=== PATIENT | female | born 1955 | race Caucasian/White ===

== ENCOUNTER 2016-12-04 13:39 | Inpatient (IN) | payer OTHER ==
[2016-12-04 15:46] LABS: Glucose,Whole Blood 86 mg/dL (75-99)
[2016-12-04 15:54] LABS: Anisocytosis Slight; Aty Lym Flag Marked; CH 32.5; CHCM 33.3; HCT 22.2 % (34.0-46.0); HDW 3.23; HGB 7.3 gm/dL (11.4-16.0); MCH 31.9 pg (25.0-35.0); MCHC 32.6 g/dL (31.0-37.0); MCV 97.7 fL (80.0-100.0); Macrocytosis Slight; Mean Platelet Volume 8.7; RBC 2.28 m/uL (3.80-5.40); WBC 0.2 k/uL (3.8-10.6); WBC (Perox) 0.16
[2016-12-04 16:03] LABS: Ammonia <9 umol/L (<30)
[2016-12-04 16:05] LABS: Add Differential Manual Differential
--- NOTE | 2016-12-04 16:06 | XR ---
EXAMINATION TYPE: XR chest 1V portable DATE OF EXAM: 12/04/2016 4:01 PM Comparison: None Clinical History: 61-year-old female with weakness, shortness of breath, altered mental status Findings: Density at the right base. Uncertain if this represents elevation of the right hemidiaphragm or densi ty relating to underlying breast prosthesis. This should be correlated clinically. Heart is normal si ze. Atherosclerotic arch calcifications. Lung volumes appear somewhat low with crowded vascular harper ngs. Left anterior chest wall injection port with catheter tip at the upper right atrium. No signific ant pleural effusion seen. Visualized upper and mid lungs are clear. Impression: Right basilar opacity. Unable to determine if this represents elevation of the right hemidiaphragm, o verlying density such as from a right breast prosthesis, or underlying effusion/infiltrate. Recommend dedicated 2 views of the chest when patient able to further evaluate.
[2016-12-04 16:08] LABS: ALT 20 U/L (9-52); AST 13 U/L (14-36); Alkaline Phosphatase 74 U/L (38-126); Anion Gap 5 mmol/L; Blood Urea Nitrogen 9 mg/dL (7-17); Calcium 7.4 mg/dL (8.4-10.2); Carbon Dioxide 31 mmol/L (22-30); Chloride 95 mmol/L (98-107); Glucose 101 mg/dL (74-99); Non-African American GFR(MDRD) >60 (>60 ml/min/1.73 sqM); Sodium 131 mmol/L (137-145); Total Bilirubin 0.5 mg/dL (0.2-1.3); Total Protein 4.4 g/dL (6.3-8.2)
--- NOTE | 2016-12-04 16:08 | CT ---
EXAMINATION TYPE: CT brain wo con DATE OF EXAM: 12/04/2016 4:01 PM COMPARISON: NONE HISTORY: 61-year-old female altered mental status, WEAKNESS AND CONFUSION. History of cancer. TECHNIQUE: Examination was done in axial plane without intravenous contrast. Coronal and sagittal r econstructions performed. CT DLP: 1058 mGycm Automated exposure control for dose reduction was used. FINDINGS: There is no evidence of acute intracranial hemorrhage, acute ischemic changes, mass, mass-effect, or extra-axial fluid collection. There is no effacement of cerebral sulci or basal subarachnoid cister ns. There is no hydrocephalus. There is no midline shift. Martinez-white matter distinction is preserv ed. Mild periventricular white matter hypodensities suggest mild burden of chronic small vessel ischemic disease. Benign basal ganglia calcifications, particularly on the left. Incidental partially empty se lla. Paranasal sinuses are well pneumatized. Orbits and globes are intact. Partial opacification of left m astoid air cells. IMPRESSION: 1. No acute intracranial abnormality seen. 2. Some retained secretions within the left mastoid air cells. Correlate for any mastoid pain to excl ude mastoiditis.
[2016-12-04 16:09] LABS: Potassium 2.5 mmol/L (3.5-5.1)
[2016-12-04] MEDS ORDERED: POTASSIUM BICARB-CITRIC ACID 25 MEQ TABLET.EFF PO STA (16:12)
[2016-12-04] MEDS ORDERED: CEFEPIME 2 GM in SODIUM CHLORIDE 0.9% 50 ML IVPB STA (16:16)
[2016-12-04 16:47] LABS: Anisocytosis Slight; Aty Lym Flag Marked; CH 32.2; CHCM 33.2; HCT 23.2 % (34.0-46.0); HDW 3.31; HGB 7.6 gm/dL (11.4-16.0); MCH 32.1 pg (25.0-35.0); MCHC 32.9 g/dL (31.0-37.0); MCV 97.3 fL (80.0-100.0); Macrocytosis Slight; Mean Platelet Volume 6.9; RBC 2.38 m/uL (3.80-5.40); RDW 17.9 % (11.5-15.5); WBC 0.2 k/uL (3.8-10.6)
[2016-12-04 16:48] LABS: Add Differential Manual Differential
[2016-12-04] MEDS ORDERED: IV VANCOMYCIN PER PHARMACY 1 EACH MISC MISCELLANE PRN (18:20)
[2016-12-04] MEDS ORDERED: SODIUM CHLORIDE 0.9% 1,000 ML IV ONE (18:20)
[2016-12-04] MEDS ORDERED: NALOXONE 0.4 MG/ML 1 ML VIAL IV PRN (19:00)
[2016-12-04] MEDS ORDERED: ONDANSETRON 4 MG/2 ML VIAL IVP PRN (19:00)
[2016-12-04] MEDS ORDERED: ACETAMINOPHEN TAB 325 MG TAB PO PRN (19:00)
[2016-12-04] MEDS ORDERED: VANCOMYCIN 1,000 MG in SODIUM CHLORIDE 0.9% 250 ML IVPB ONE (19:00)
[2016-12-04] MEDS ORDERED: DOCUSATE 100 MG CAP PO PRN (19:03)
--- NOTE | 2016-12-04 19:04 | ED ---
Altered Mental Status HPI - General Chief Complaint: Altered Mental Status Stated Complaint: weakness, Time Seen by Provider: 12/04/16 14:48 Source: family Mode of arrival: wheelchair Limitations: altered mental status - History of Present Illness Initial Comments: This patient is a 61-year-old woman coming to the emergency department to be evaluated for mental status changes. The patient is not able to give much history she does appear to have some aphasia today. History is from the patient 's and son, who state that since she got up this morning she has not been her usual self. She has been much less active, her intake is decreased, and she has not been able to communicate with family. They report that she has history of what sounds like ovarian cancer and possibly some abdominal metastases. She has been taking chemotherapy through the [facility] in [place]. It sounds like her last chemotherapy treatment was 2 weeks ago. Patient has not been having fevers or any obvious symptoms of infection. When I asked the patient she denies pain, however she is not able to provide much additional history. MD Complaint: altered mental status, weakness -: hour(s) Severity: moderate Context: cancer Associated Symptoms: denies other symptoms - Related Data Home Medications Medication Instructions Recorded Confirmed Apixaban [Eliquis] 5 mg PO BID 12/04/16 12/04/16 Docusate [Colace] 100 mg PO DAILY PRN 12/04/16 12/04/16 HYDROmorphone [Dilaudid] 2 mg PO Q4H PRN 12/04/16 12/04/16 Allergies Allergy/AdvReac Type Severity Reaction Status Date / Time No Known Allergies Allergy Verified 12/04/16 15:51 Review of Systems ROS Statement: Those systems with pertinent positive or pertinent negative responses have been documented in the HPI. ROS Other: All systems not noted in ROS Statement are negative. Constitutional: Reports: weakness (Generalized). Denies: fever Eyes: Denies: vision change Respiratory: Denies: cough, dyspnea Cardiovascular: Reports: edema. Denies: chest pain, syncope Gastrointestinal: Denies: abdominal pain, vomiting Musculoskeletal: Denies: back pain Neurological: Reports: weakness (Generalized), confusion. Denies: headache Past Medical History Past Medical History: Cancer Additional Past Medical History / Comment(s): pt has cancer, unsure of type History of Any Multi-Drug Resistant Organisms: None Reported Past Surgical History: Bowel Resection, Hysterectomy Additional Past Surgical History / Comment(s): colostomy Past Psychological History: No Psychological Hx Reported Smoking Status: Former smoker Past Alcohol Use History: None Reported Past Drug Use History: None Reported General Exam Limitations: altered mental status General appearance: alert, cachectic Head exam: Present: atraumatic, normocephalic Eye exam: Present: normal appearance, PERRL, EOMI. Absent: scleral icterus, conjunctival injection ENT exam: Present: mucous membranes dry Neck exam: Present: full ROM. Absent: meningismus Respiratory exam: Present: normal lung sounds bilaterally. Absent: respiratory distress, wheezes, rales, rhonchi, stridor Cardiovascular Exam: Present: regular rate, normal rhythm, normal heart sounds. Absent: systolic murmur, diastolic murmur, rubs, gallop GI/Abdominal exam: Present: soft. Absent: distended, tenderness, guarding, rebound, mass Extremities exam: Present: normal inspection, normal capillary refill, pedal edema (There is bilateral edema to below the knee). Absent: calf tenderness Back exam: Absent: CVA tenderness (R), CVA tenderness (L) Neurological exam: Present: alert, CN II-XII intact, other (Patient is not able to fully cooperative with the neurologic exam. She is able to express some single words though she is having problem with expressive aphasia. She is able to follow some simple single step commands. I do not find any focal weakness.) . Absent: oriented X3, motor sensory deficit Skin exam: Present: warm, dry, intact, normal color. Absent: rash Course Vital Signs 12/04/16 12/04/16 12/04/16 13:48 18:19 19:24 Temperature 96.8 F L Pulse Rate 68 98 96 Respiratory 20 20 16 Rate Blood Pressure 107/72 79/51 85/52 O2 Sat by Pulse 95 92 L 98 Oximetry 12/04/16 12/04/16 19:28 20:30 Temperature Pulse Rate 91 90 Respiratory 16 16 Rate Blood Pressure 84/55 90/61 O2 Sat by Pulse 100 99 Oximetry Medical Decision Making - Medical Decision Making This patient is a 61-year-old woman presenting with altered mental status and found to have pancytopenia as well as other electrolyte abnormalities including hypokalemia. She appears clinically dehydrated as well. We did start gentle IV fluids and electrolyte replacement. I discussed the findings with the patient's family and per their request, Patient will be admitted here. She does not have a local physician and was admitted to the on-call physician. Case discussed with the tempering oven operator on-call and will cover the patient for the neutropenia with antibiotics. The patient's aphasia was improving to the course in emergency Department and she was able to start communicating with her family. The patient did develop some mild hypotension and sustainability coordinator was added on the case and discussed the case prior to going to the floor there recommendations incorporated. Discussed the patient's critical condition with the family and they're aware. - Lab Data Result diagrams: 12/04/16 16:30 12/04/16 20:28 Lab Results 12/04/16 12/04/16 12/04/16 Range/Units 15:20 15:20 15:20 WBC 0.2 L* (3.8-10.6) k/uL RBC 2.28 L (3.80-5.40) m/uL Hgb 7.3 L (11.4-16.0) gm/dL Hct 22.2 L (34.0-46.0) % MCV 97.7 (80.0-100.0) fL MCH 31.9 (25.0-35.0) pg MCHC 32.6 (31.0-37.0) g/dL RDW 18.0 H (11.5-15.5) % Plt Count 12 L* (150-450) k/uL Neutrophils % Not Reportable Lymphocytes % Not Reportable Monocytes % Not Reportable Eosinophils % Not Reportable Basophils % Not Reportable Neutrophils # Not Reportable Lymphocytes # Not Reportable Monocytes # Not Reportable Eosinophils # Not Reportable Basophils # Not Reportable Differential Comment Anisocytosis Slight Macrocytosis Slight Sodium 131 L (137-145) mmol/L Potassium 2.5 L* (3.5-5.1) mmol/L Chloride 95 L (98-107) mmol/L Carbon Dioxide 31 H (22-30) mmol/L Anion Gap 5 mmol/L BUN 9 (7-17) mg/dL Creatinine 0.40 L (0.52-1.04) mg/dL Est GFR (MDRD) Af Amer >60 (>60 ml/min/1.73 sqM) Est GFR (MDRD) Non-Af >60 (>60 ml/min/1.73 sqM) Glucose 101 H (74-99) mg/dL POC Glucose (mg/dL) (75-99) mg/dL POC Glu [employer] Repairer ID Plasma Lactic Acid Cliff (0.7-2.0) mmol/L Calcium 7.4 L (8.4-10.2) mg/dL Total Bilirubin 0.5 (0.2-1.3) mg/dL AST 13 L (14-36) U/L ALT 20 (9-52) U/L Alkaline Phosphatase 74 (38-126) U/L Ammonia (<30) umol/L Troponin I 0.106 H* (0.000-0.034) ng/mL Total Protein 4.4 L (6.3-8.2) g/dL Albumin 2.0 L (3.5-5.0) g/dL 12/04/16 12/04/16 12/04/16 Range/Units 15:20 15:43 16:30 WBC 0.2 L* (3.8-10.6) k/uL RBC 2.38 L (3.80-5.40) m/uL Hgb 7.6 L (11.4-16.0) gm/dL Hct 23.2 L (34.0-46.0) % MCV 97.3 (80.0-100.0) fL MCH 32.1 (25.0-35.0) pg MCHC 32.9 (31.0-37.0) g/dL RDW 17.9 H (11.5-15.5) % Plt Count 11 L* (150-450) k/uL Neutrophils % Lymphocytes % Monocytes % Eosinophils % Basophils % Neutrophils # Lymphocytes # Monocytes # Eosinophils # Basophils # Differential Comment Anisocytosis Slight Macrocytosis Slight Sodium (137-145) mmol/L Potassium (3.5-5.1) mmol/L Chloride (98-107) mmol/L Carbon Dioxide (22-30) mmol/L Anion Gap mmol/L BUN (7-17) mg/dL Creatinine (0.52-1.04) mg/dL Est GFR (MDRD) Af Amer (>60 ml/min/1.73 sqM) Est GFR (MDRD) Non-Af (>60 ml/min/1.73 sqM) Glucose (74-99) mg/dL POC Glucose (mg/dL) 86 (75-99) mg/dL POC Glu [employer] Repairer Tracy George Plasma Lactic Acid Cliff 2.0 (0.7-2.0) mmol/L Calcium (8.4-10.2) mg/dL Total Bilirubin (0.2-1.3) mg/dL AST (14-36) U/L ALT (9-52) U/L Alkaline Phosphatase (38-126) U/L Ammonia <9 (<30) umol/L Troponin I (0.000-0.034) ng/mL Total Protein (6.3-8.2) g/dL Albumin (3.5-5.0) g/dL Critical Care Time Critical Care Time: Yes (35 minutes) Disposition Clinical Impression: Altered mental status, Pancytopenia due to chemotherapy, Hypokalemia Disposition: ADMITTED IP TO THIS [facility] Condition: Serious
[2016-12-04] MEDS: SODIUM CHLORIDE 0.9% 1,000 ML IV SCH (19:25)
[2016-12-04] MEDS: NOREPINEPHRIN 4 MG-0.9% NS PMX 4 MG/250 ML ML IV SCH (20:29)
[2016-12-04] MEDS ORDERED: APIXABAN 5 MG TAB PO SCH (21:00)
[2016-12-04 21:11] LABS: Anion Gap 2 mmol/L; Blood Urea Nitrogen 8 mg/dL (7-17); Calcium 7.4 mg/dL (8.4-10.2); Carbon Dioxide 32 mmol/L (22-30); Chloride 97 mmol/L (98-107); Glucose 74 mg/dL (74-99); Non-African American GFR(MDRD) >60 (>60 ml/min/1.73 sqM); Sodium 131 mmol/L (137-145)
[2016-12-04 21:32] LABS: Glucose,Whole Blood 77 mg/dL (75-99)
[2016-12-04] MEDS: HYDROmorphone 2 MG TAB PO PRN (22:18)
[2016-12-04] MEDS: APIXABAN 5 MG TAB PO SCH (22:40)
[2016-12-04] MEDS: FAMOTIDINE 20 MG TAB PO SCH (22:41)
[2016-12-04] MEDS: POTASSIUM CHLORIDE ER 20 MEQ TAB.ER PO SCH (22:41)
[2016-12-04 23:24] LABS: Amorphous Sediment,Urine Rare /hpf; Appearance,Urine Clear (Clear); Bacteria,Urine Rare /hpf; Bilirubin,Urine Negative (Negative); Glucose,Urine (UA) Negative (Negative); Ketones,Urine Negative (Negative); Leukocyte Esterase,Urine Negative (Negative); Mucus,Urine Moderate /hpf; Nitrite,Urine Negative (Negative); PH, Urine 5.5 (5.0-8.0); Particle Count 9992; Protein,Urine 1+ (Negative); RBC,Urine 1 /hpf (0-5); Squamous Epithelial Cell,Urine 1 /hpf (0-4); UA Billing (MACRO vs. MICRO) MICRO; Urobilinogen,Urine <2.0 mg/dL (<2.0); WBC,Urine 4 /hpf (0-5)
[2016-12-05] MEDS: HYDROCORTISONE SUCCINATE 100 MG/2 ML VIAL IV SCH ×3 (00:14→16:12)
[2016-12-05] MEDS: POTASSIUM CHLORIDE ER 20 MEQ TAB.ER PO SCH ×5 (00:15→22:03)
[2016-12-05] MEDS: VANCOMYCIN 750 MG in SODIUM CHLORIDE 0.9% 250 ML IVPB SCH ×3 (04:03→22:03)
[2016-12-05 05:08] LABS: Anisocytosis Slight; CH 32.2; CHCM 32.4; HCT 24.3 % (34.0-46.0); HDW 3.19; HGB 8.2 gm/dL (11.4-16.0); MCH 33.8 pg (25.0-35.0); MCHC 33.9 g/dL (31.0-37.0); MCV 99.6 fL (80.0-100.0); Macrocytosis Slight; Mean Platelet Volume 9.6; RBC 2.43 m/uL (3.80-5.40); RDW 17.7 % (11.5-15.5); WBC (Perox) 0.16
[2016-12-05 05:45] LABS: Anion Gap 2 mmol/L; Blood Urea Nitrogen 8 mg/dL (7-17); Calcium 7.4 mg/dL (8.4-10.2); Carbon Dioxide 31 mmol/L (22-30); Chloride 98 mmol/L (98-107); Glucose 142 mg/dL (74-99); Magnesium 1.4 mg/dL (1.6-2.3); Non-African American GFR(MDRD) >60 (>60 ml/min/1.73 sqM); Phosphorous 2.8 mg/dL (2.5-4.5); Potassium 3.2 mmol/L (3.5-5.1); Sodium 131 mmol/L (137-145)
[2016-12-05 06:11] LABS: WBC 0.2 k/uL (3.8-10.6)
--- NOTE | 2016-12-05 08:05 | XR ---
EXAMINATION TYPE: XR chest 1V DATE OF EXAM: 12/05/2016 6:57 AM CLINICAL HISTORY: Difficulty breathing progress study. Weakness. TECHNIQUE: Single AP portable upright view of the chest is obtained. COMPARISON: Chest x-ray from one day earlier FINDINGS: A left internal jugular Mediport catheter is stable in appearance. There is chronic parenc hymal change with left basilar linear scarring and/or atelectasis. There is persistent right basilar opacity consistent with infiltrate and/or atelectasis and probable small right pleural effusion. Uppe r lungs remain clear without pneumothorax. Cardiac silhouette size is stable and within normal limits with atherosclerotic thoracic aorta. Osseous structures are intact. IMPRESSION: Overall stable findings, left basilar linear scarring and/or atelectasis with persisten t right basilar opacity favoring infiltrate and/or atelectasis and likely small right pleural effusio n all redemonstrated.
[2016-12-05] MEDS: MAGNESIUM SULFATE-D5W PMX 1 GM in DEXTROSE/WATER 1 100ML.BAG IVPB SCH ×3 (08:49→11:49)
[2016-12-05] MEDS: APIXABAN 5 MG TAB PO SCH ×2 (08:50→22:04)
[2016-12-05] MEDS: FAMOTIDINE 20 MG TAB PO SCH ×2 (08:51→22:03)
[2016-12-05] MEDS: HYDROmorphone 2 MG TAB PO PRN ×3 (09:09→22:03)
[2016-12-05] MEDS: CEFEPIME 2 GM in SODIUM CHLORIDE 0.9% 50 ML IVPB SCH ×2 (11:26→22:03)
[2016-12-05 11:47] LABS: Add Differential Manual Differential
[2016-12-05] MEDS: SODIUM CHLORIDE 0.9% 1,000 ML IV SCH ×2 (11:49→22:04)
[2016-12-05] MEDS: NOREPINEPHRIN 4 MG-0.9% NS PMX 4 MG/250 ML ML IV SCH (11:52)
[2016-12-05 11:53] LABS: Manual Review Performed; Rouleaux Present
[2016-12-05] MEDS: FILGRASTIM-SNDZ 300 MCG/0.5 ML SYRINGE SQ SCH (13:17)
[2016-12-05] MEDS: IPRATROPIUM-ALBUTEROL 3 ML NEB INHALATION SCH ×2 (13:40→20:06)
[2016-12-05] MEDS ORDERED: SODIUM CHLORIDE 0.9% 1,000 ML IV SCH ×2 (14:00→18:00)
--- NOTE | 2016-12-05 15:47 | P.CNPUL ---
History of Present Illness Consult date: 12/05/16 Requesting physician: Hiram Becerril Reason for consult: other (ICU mangement) History of present illness: This is a 61-year-old female being evaluated and examined today in the intensive care unit. The patient came in to the emergency room for mental status changes. Patient was accompanied by her and son who stated that she could not get up this morning and was not being herself. Patient has been much less active, her intake has decreased and she has not been able to communicate with her family. The patient does have a history of ovarian cancel cancer and some possible abdominal metastasis per the family. She currently is being seen by,institute and each right those records are not readily available at this time. Patient states her last chemotherapy treatment was about 2 weeks ago. She denies having any fevers or any obvious signs of infection, however she has not able to provide much history. Her blood work showed pancytopenia as well as electrolyte abnormalities including hypokalemia. She was also dehydrated. The patient was started on IV fluids and her electrolytes were replaced. The patient does have a Mediport in place. Oncology was put on consult as well. The patient seems to have some aphasia as well. Upon examination the patient is resting up in bed on 2 L of supplemental oxygen with family at bedside. Patient does get short of breath with exertion or extensive conversations. She denies any cough or congestion at this time. She appears very weak and cachectic. Review of Systems 14 point review of systems was completed and is negative other than what is noted in the HPI. Past Medical History Past Medical History: Cancer, Deep Vein Thrombosis (DVT) Additional Past Medical History / Comment(s): pt has cancer,. hx breast CA 22 years ago, uterine CA 5 years ago. 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 History of Any Multi-Drug Resistant Organisms: None Reported Past Surgical History: Bowel Resection, Hysterectomy Additional Past Surgical History / Comment(s): colostomy, right mastectomy Past Anesthesia/Blood Transfusion Reactions: No Reported Reaction Past Psychological History: No Psychological Hx Reported Smoking Status: Former smoker Past Alcohol Use History: None Reported Past Drug Use History: None Reported Medications and Allergies Home Medications Medication Instructions Recorded Confirmed Type Apixaban [Eliquis] 5 mg PO BID 12/04/16 12/04/16 History Docusate [Colace] 100 mg PO DAILY PRN 12/04/16 12/04/16 History HYDROmorphone [Dilaudid] 2 mg PO Q4H PRN 12/04/16 12/04/16 History Allergies Allergy/AdvReac Type Severity Reaction Status Date / Time No Known Allergies Allergy Verified 12/04/16 15:51 Physical Exam Vitals: Vital Signs Temp Pulse Resp BP Pulse Ox 12/05/16 08:30 97.7 F 112 H 22 101/71 98 12/05/16 08:00 76 42 H 95/66 98 12/05/16 07:30 89 50 H 101/71 100 12/05/16 07:00 76 20 100/72 100 12/05/16 06:30 78 22 99/65 100 12/05/16 06:00 83 25 H 101/70 98 12/05/16 05:30 83 20 93/66 100 12/05/16 05:00 83 16 100/73 100 12/05/16 04:30 86 16 99/70 100 12/05/16 04:00 97.2 F L 81 25 H 93/68 100 12/05/16 03:30 94 25 H 100 12/05/16 03:00 77 17 108/72 100 12/05/16 02:30 78 21 108/72 100 12/05/16 02:00 80 18 103/69 100 12/05/16 01:30 82 20 98/65 99 12/05/16 01:00 81 17 91/67 100 12/05/16 00:30 87 22 94/66 100 12/05/16 00:00 97.4 F L 95 25 H 95/65 100 12/04/16 23:30 89 22 97/74 100 12/04/16 23:00 104 H 19 94/71 98 12/04/16 22:30 104 H 27 H 105/75 100 12/04/16 22:00 97.9 F 88 27 H 100 12/04/16 20:30 90 16 90/61 99 12/04/16 19:28 91 16 84/55 100 12/04/16 19:24 96 16 85/52 98 Intake and Output 12/04/16 12/05/16 12/05/16 22:59 06:59 14:59 Intake Total 520 750 105 Output Total 110 240 130 Balance 410 510 -25 Intake: IV 40 660 40 Cefepime 2 gm In Sodium 250 Chloride 0.9% 50 ml @ 100 mls/hr IVPB ONCE STA Rx# :[id number] Sodium Chloride 0.9% 1, 40 160 40 000 ml @ 20 mls/hr IV . Q24H [facility] Rx#:[id number] Vancomycin 1,000 mg In 250 Sodium Chloride 0.9% 250 ml @ 125 mls/hr IVPB ONCE ONE Rx#:[id number] Intake, IV Titration 5 Amount Norepinephrin 4 mg-0.9% 5 Ns Pmx 4 mg In 250 ml @ Titrate IV .Q0M [facility] Rx#: [id number] Oral 480 90 60 Output: Urine 110 240 130 Other: Voiding Method Indwelling Catheter Indwelling Catheter Weight 61.5 kg 61.5 kg Patient Weight 12/06/16 06:59 Weight 61.5 kg GENERAL EXAM: Alert, comfortable in no apparent distress. HEAD: Normocephalic. EYES: Normal reaction of pupils, equal size. NOSE: Clear with pink turbinates. THROAT: No erythema or exudates. NECK: No masses, no JVD. CHEST: No chest wall deformity. LUNGS: Equal air entry with no crackles, wheeze, rhonchi or dullness. Bases diminished CVS: S1 and S2 normal with no audible mumurs, regular rhythm. ABDOMEN: No hepatosplenomegaly, normal bowel sounds, no guarding or rigidity. EXTREMITIES: +1-2 edema noted, pedal pulses palpable. SKIN: No rashes CENTRAL NERVOUS SYSTEM: No focal deficits, tone is weak in all 4 extremities. Results - Laboratory Findings CBC and BMP: 12/05/16 04:41 12/05/16 04:41 Abnormal lab findings: Abnormal Labs 12/04/16 12/04/16 12/05/16 20:28 22:45 02:24 WBC RBC Hgb Hct RDW Plt Count Sodium 131 L Potassium 3.0 L* 5.3 H Chloride 97 L Carbon Dioxide 32 H Creatinine 0.36 L Glucose Calcium 7.4 L Magnesium Urine Protein 1+ H Amorphous Sediment Rare H Urine Bacteria Rare H Hyaline Casts 7 H Urine Mucus Moderate H Urine Opiates Screen Detected H U Marijuana (THC) Screen Detected H 12/05/16 12/05/16 04:41 04:41 WBC 0.2 L* RBC 2.43 L Hgb 8.2 L Hct 24.3 L RDW 17.7 H Plt Count 16 L* Sodium 131 L Potassium 3.2 L Chloride Carbon Dioxide 31 H Creatinine 0.36 L Glucose 142 H Calcium 7.4 L Magnesium 1.4 L Urine Protein Amorphous Sediment Urine Bacteria Hyaline Casts Urine Mucus Urine Opiates Screen U Marijuana (THC) Screen Assessment and Plan Plan: Assessment Small right pleural effusion Hypotension Pancytopenia due to chemotherapy Hypokalemia Dehydration Altered mental status Ovarian cancer, currently being treated at, [facility] in [place]. Lab Medications have been reviewed and will be continued. We will obtain records from the hospital in [place]. We will add nebulizer treatments to help with her shortness of breath. Electrolytes replaced per protocol. We will increase IV fluids to 75 an hour. Appreciate input from oncology. Infectious disease also on consult. Dietitian on consult. GI and DVT prophylactics. Blood cultures pending. We will continue to monitor labs/results and adjust treatment as necessary. I performed an examination of the patient and discussed their management with the nurse practitioner. I have reviewed the nurse practitioner's note and agree with the documented findings and plan of care.
--- NOTE | 2016-12-05 17:31 | P.CONS ---
History of Present Illness - Reason for Consult Consult date: 12/05/16 ovarian cancer Requesting physician: Ricardo Howe - Chief Complaint AMS - History of Present Illness Pt is a very pleasant female pt of Dr. Gonzalez and has been receiving her treatment at [facility] in [place] since her diagnosis of ovarian malignancy 1 1/2 years ago. Pt had surgery, chemo and radiation. In Dec she had GI obstruction due to metastatic disease and what sounds like a diverting ostomy. Her last chemo was 11 days ago. Pt had not been eating or drinking very well for the last few days, her had to help her to the bathroom because she was so weak, when they woke up this morning he noticed that she was speaking incoherently and not making any sense so he brought her to the hospital for evaluation. Her head CT without contrast did not show evidence of ICH or hemorrhagic stroke, pt denies pt falling. No fevers that they are aware of, appetite poor, no vomiting, changes in ostomy output, blood or mucus. Pt is weak but denies NATALYA, chest pain, abd pain, dysuria, hematuria, swelling or other pain. Most of the history comes from her , records have been requested from [place]. Review of Systems All systems: negative Constitutional: Reports as per HPI Past Medical History Past Medical History: Cancer, Deep Vein Thrombosis (DVT) Additional Past Medical History / Comment(s): hx breast CA 22 years ago, uterine CA 5 years ago, recent metastatic disease History of Any Multi-Drug Resistant Organisms: None Reported Past Surgical History: Bowel Resection, Hysterectomy Additional Past Surgical History / Comment(s): colostomy, right mastectomy Past Anesthesia/Blood Transfusion Reactions: No Reported Reaction Past Psychological History: No Psychological Hx Reported Smoking Status: Former smoker Past Alcohol Use History: None Reported Past Drug Use History: None Reported Medications and Allergies Home Medications Medication Instructions Recorded Confirmed Type Apixaban [Eliquis] 5 mg PO BID 12/04/16 12/04/16 History Docusate [Colace] 100 mg PO DAILY PRN 12/04/16 12/04/16 History HYDROmorphone [Dilaudid] 2 mg PO Q4H PRN 12/04/16 12/04/16 History Allergies Allergy/AdvReac Type Severity Reaction Status Date / Time No Known Allergies Allergy Verified 12/04/16 15:51 Physical Exam Vitals: Vital Signs Temp Pulse Resp BP Pulse Ox 12/05/16 16:00 97.5 F L 93 25 H 103/73 98 12/05/16 15:30 90 17 89/67 98 12/05/16 15:00 94 16 105/76 98 12/05/16 14:30 93 18 84/61 98 12/05/16 14:00 94 17 84/61 98 12/05/16 13:30 98 18 84/61 96 12/05/16 13:00 93 18 84/61 100 12/05/16 12:30 98.2 F 95 21 80/62 96 12/05/16 12:00 94 18 80/62 97 12/05/16 11:30 90 19 87/68 96 12/05/16 11:00 83 16 87/63 97 12/05/16 10:30 89 25 H 90/62 98 12/05/16 10:00 82 17 92/68 97 12/05/16 09:30 89 16 93/69 98 12/05/16 09:00 91 25 H 102/76 95 12/05/16 08:30 97.7 F 112 H 22 101/71 98 12/05/16 08:00 76 16 95/66 98 12/05/16 07:30 89 50 H 101/71 100 12/05/16 07:00 76 20 100/72 100 12/05/16 06:30 78 22 99/65 100 12/05/16 06:00 83 25 H 101/70 98 12/05/16 05:30 83 20 93/66 100 12/05/16 05:00 83 16 100/73 100 12/05/16 04:30 86 16 99/70 100 12/05/16 04:00 97.2 F L 81 25 H 93/68 100 12/05/16 03:30 94 25 H 100 12/05/16 03:00 77 17 108/72 100 12/05/16 02:30 78 21 108/72 100 12/05/16 02:00 80 18 103/69 100 12/05/16 01:30 82 20 98/65 99 12/05/16 01:00 81 17 91/67 100 12/05/16 00:30 87 22 94/66 100 12/05/16 00:00 97.4 F L 95 25 H 95/65 100 12/04/16 23:30 89 22 97/74 100 12/04/16 23:00 104 H 19 94/71 98 12/04/16 22:30 104 H 27 H 105/75 100 12/04/16 22:00 97.9 F 88 27 H 100 12/04/16 20:30 90 16 90/61 99 12/04/16 19:28 91 16 84/55 100 12/04/16 19:24 96 16 85/52 98 Intake and Output 12/05/16 12/05/16 12/05/16 06:59 14:59 22:59 Intake Total 750 2105.0 56.376 Output Total 240 255 55 Balance 510 1850.0 1.376 Intake: IV 660 765 Cefepime 2 gm In Sodium 250 100 Chloride 0.9% 50 ml @ 100 mls/hr IVPB ONCE [facility] Rx# :[id number] Sodium Chloride 0.9% 1, 160 415 000 ml @ 75 mls/hr IV . [id number] [facility] Rx#:[id number] Vancomycin 1,000 mg In 250 250 Sodium Chloride 0.9% 250 ml @ 125 mls/hr IVPB ONCE ONE Rx#:[id number] Intake, IV Titration 470.0 56.376 Amount Magnesium Sulfate-D5w Pmx 200 1 gm In Dextrose/Water 1 100ml.bag @ 100 mls/hr IVPB Q1H [facility] Rx#: [id number] Norepinephrin 4 mg-0.9% 270.0 56.376 Ns Pmx 4 mg In 250 ml @ Titrate IV .Q0M [facility] Rx#: [id number] Oral 90 870 Output: Urine 240 255 55 Other: Voiding Method Indwelling Catheter Indwelling Catheter Indwelling Catheter Weight 61.5 kg 61.5 kg Patient Weight 12/06/16 06:59 Weight 61.5 kg - Constitutional General appearance: cooperative, mild distress, thin - EENT dry mucus membranes, no oral thrush or lesions Eyes: anicteric sclerae - Neck Neck: no lymphadenopathy - Respiratory Respiratory: bilateral: CTA, diminished - Cardiovascular Rhythm: regular Heart sounds: normal: S1, S2 - Gastrointestinal colostomy General gastrointestinal: normal bowel sounds, scaphoid - Neurologic no gross focal or motor neuro deficits noted - Musculoskeletal Musculoskeletal: generalized weakness, strength equal bilaterally - Psychiatric pt needed prompting but was oriented to self, place and time Psychiatric: appropriate affect, no intact judgment & insight Results CBC & Chem 7: 12/05/16 04:41 12/05/16 04:41 Labs: Abnormal Lab Results - Last 24 Hours (Table) 12/04/16 12/04/16 12/05/16 Range/Units 20:28 22:45 02:24 WBC (3.8-10.6) k/uL RBC (3.80-5.40) m/uL Hgb (11.4-16.0) gm/dL Hct (34.0-46.0) % RDW (11.5-15.5) % Plt Count (150-450) k/uL Sodium 131 L (137-145) mmol/L Potassium 3.0 L* 5.3 H (3.5-5.1) mmol/L Chloride 97 L (98-107) mmol/L Carbon Dioxide 32 H (22-30) mmol/L Creatinine 0.36 L (0.52-1.04) mg/dL Glucose (74-99) mg/dL Calcium 7.4 L (8.4-10.2) mg/dL Magnesium (1.6-2.3) mg/dL Urine Protein 1+ H (Negative) Amorphous Sediment Rare H (None) /hpf Urine Bacteria Rare H (None) /hpf Hyaline Casts 7 H (0-2) /lpf Urine Mucus Moderate H (None) /hpf Urine Opiates Screen Detected H (NotDetected) U Marijuana (THC) Screen Detected H (NotDetected) 12/05/16 12/05/16 Range/Units 04:41 04:41 WBC 0.2 L* (3.8-10.6) k/uL RBC 2.43 L (3.80-5.40) m/uL Hgb 8.2 L (11.4-16.0) gm/dL Hct 24.3 L (34.0-46.0) % RDW 17.7 H (11.5-15.5) % Plt Count 16 L* (150-450) k/uL Sodium 131 L (137-145) mmol/L Potassium 3.2 L (3.5-5.1) mmol/L Chloride (98-107) mmol/L Carbon Dioxide 31 H (22-30) mmol/L Creatinine 0.36 L (0.52-1.04) mg/dL Glucose 142 H (74-99) mg/dL Calcium 7.4 L (8.4-10.2) mg/dL Magnesium 1.4 L (1.6-2.3) mg/dL Urine Protein (Negative) Amorphous Sediment (None) /hpf Urine Bacteria (None) /hpf Hyaline Casts (0-2) /lpf Urine Mucus (None) /hpf Urine Opiates Screen (NotDetected) U Marijuana (THC) Screen (NotDetected) Microbiology - Last 24 Hours (Table) 12/04/16 22:45 Urine Culture - Preliminary Urine,Catheterized Chest x-ray: report reviewed CT Scan - head: report reviewed Assessment and Plan (1) Metastatic adenocarcinoma of ovary Narrative/Plan: Pt under the care of Dr. Gonzalez at [facility], records have been requested per nursing. Pt last treatment was about 11 days ago. She will continue her care with Dr. Gonzalez once discharged for her acute condition Status: Chronic (2) Pancytopenia due to chemotherapy Narrative/Plan: Hgb low but adequate, no acute transfusion needed GCSF ordered for neutropenia Platelets not requiring transfusion, no asa, NSAIDs or anticoagulation at this time CBC daily Status: Acute Plan: If pt mental status does not improve back to baseline then CT with contrast will be ordered of the head to evaluate for metastatic disease, she has had improvement per family as of this AM.
[2016-12-05] MEDS: BUDESONIDE 0.5 MG/2 ML NEBU INHALATION SCH (20:06)
[2016-12-06] MEDS: HYDROCORTISONE SUCCINATE 100 MG/2 ML VIAL IV SCH ×3 (00:14→08:27)
[2016-12-06 04:38] LABS: Anisocytosis Slight; Aty Lym Flag Marked; CH 32.4; CHCM 34.3; HCT 21.2 % (34.0-46.0); HDW 3.61; HGB 7.5 gm/dL (11.4-16.0); Immature Gran Flag Moderate; MCH 33.6 pg (25.0-35.0); MCHC 35.6 g/dL (31.0-37.0); Poikilocytosis Slight; RBC 2.24 m/uL (3.80-5.40); RDW 17.4 % (11.5-15.5); WBC (Perox) 0.28
[2016-12-06 04:58] LABS: WBC 0.6 k/uL (3.8-10.6)
[2016-12-06 04:59] LABS: MCV 94.5 fL (80.0-100.0)
[2016-12-06 05:03] LABS: Add Differential Manual Differential
[2016-12-06] MEDS: VANCOMYCIN 750 MG in SODIUM CHLORIDE 0.9% 250 ML IVPB SCH ×2 (05:04→11:43)
[2016-12-06 05:20] LABS: ALT 23 U/L (9-52); AST 13 U/L (14-36); Alkaline Phosphatase 68 U/L (38-126); Anion Gap 2 mmol/L; Blood Urea Nitrogen 7 mg/dL (7-17); Calcium 7.2 mg/dL (8.4-10.2); Carbon Dioxide 26 mmol/L (22-30); Chloride 104 mmol/L (98-107); Glucose 137 mg/dL (74-99); Magnesium 1.9 mg/dL (1.6-2.3); Non-African American GFR(MDRD) >60 (>60 ml/min/1.73 sqM); Phosphorous 2.6 mg/dL (2.5-4.5); Potassium 4.3 mmol/L (3.5-5.1); Sodium 132 mmol/L (137-145); Total Bilirubin 0.3 mg/dL (0.2-1.3); Total Protein 4.2 g/dL (6.3-8.2)
--- NOTE | 2016-12-06 05:37 | HP ---
DATE OF ADMISSION: 12/04/2016 CHIEF COMPLAINT: A 61-year-old white female with altered mental status and is admitted to ICU. HISTORY OF PRESENT ILLNESS: A 61-year-old white female with uterine cancer, being treated with chemotherapy, last chemotherapy was 10 days ago, came in with altered mental status and confusion. She appeared to maybe have slid off the toilet onto the floor. She has some aphasic speech. She was brought in for possible stroke and syncope and she apparently has abdominal metastases getting paracentesis done every few weeks also. She has her chemotherapy in [place]. They do not follow up with blood tests after chemotherapy. She is a little bit more alert in the ICU since she has been given IV fluids. She is on norepinephrine for hypotension. She is on magnesium, potassium protocol for significant hypomagnesemia and hyponatremia. She is on cefepime and vancomycin for presumed sepsis as a cause of her neurologic change with white count of 0.2. Hematology and Pulmonology are consulted as well as Infectious Disease. She takes Eliquis at home for DVTs she has gotten in the past since she has gotten cancer. She is on 5 mg b.i.d. She is Colace 100 daily and she is on some Dilaudid at home. ALLERGIES: No known drug allergies. REVIEW OF SYSTEMS: She has been a very strong until after chemo until this last time. This is 3 out of 6 chemo. Extremely is lethargic at this point otherwise the review of systems negative except for as mentioned in the HPI except for GI. She has a colostomy from a prior surgery for the cancer and possible bowel obstruction. She had a bowel resection from the cancer and hysterectomy, colostomy. Former smoker. She likes to ride [employer]. She has one son and a . PHYSICAL EXAM: She is thin, cachectic, low BMI. SKIN: Warm, darkened. OPHTHALMOLOGIC: Pupils equal, round and reactive to light and accommodation. ENT: Ear canals within normal limits. NECK: Supple. Full range of motion. RESPIRATORY: Decreased breath sounds x4, scattered wheeze. No rhonchi. CARDIOVASCULAR: Regular rate and rhythm. GI: Soft, nontender. No guarding. She has a colostomy in left lower quadrant. HEMATOLOGIC: Negative Homans. NEUROLOGIC: She answers some questions appropriately. She does think she is at home but after awhile in the ER then up on the floor here she states she understands maybe she is in the hospital. She also knew who her son and is. Temperature 96.8, blood pressure has been 79 systolic to 107, respiratory rate 16 to 20, O2 is 92% to 98%. ASSESSMENT: 1. Altered mental status. 2. Generalized weakness. 3. Hypomagnesemia. 4. Hyponatremia. 5. Pancytopenia with severe leukopenia. 6. Acute on chronic anemia. 7. Thrombocytopenia. Hematology was consulted. Will replace sodium, potassium, magnesium. Treat for sepsis with cefepime and Vanco. Consult Infectious Disease as well as Hematology is pending. Possible Neupogen will be given. Continue with broad-spectrum antibiotics. Replace electrolytes. Home medicines will be reordered including Eliquis. Follow electrolytes. ICU times 60 minutes.
--- NOTE | 2016-12-06 05:58 | PN ---
DATE OF SERVICE: SUBJECTIVE: This is a white female whose hemoglobin has increased up to 8.2 today. Her potassium is up to 3.4 after being bolused twice. Magnesium is improving. She remains on Levophed ( ) mcg a minute at this time for hypotension being treated with vancomycin and cefepime for broad-spectrum antibiotics. She has severe pancytopenia 10 days from chemotherapy. She is more alert today. Oncology has seen the patient today. Diagnosed metastatic adenocarcinoma of ovary, pancytopenia due to chemotherapy. Platelets have been severely thrombocytopenic. Did not want to do transfusion. No NSAIDS or anticoagulation at this time. Do CBC daily. Await for her mental status to improve and then possibly CAT scan of her head if her mental status does not continue to improve like it has. She was seen by Dr. Bergman today also mobile device engineer who diagnosed small pleural effusion, hypotension, hypokalemia, dehydration, altered mental status, ovarian cancer, pancytopenia. Continue current medications. They added nebulizer treatments for shortness of breath. Current treatment remains broad-spectrum antibiotics. Await for Dr. Avalos's consultation. ICU time is 30 minutes. Neurologically today she is more improved with her speech and more back to normal. GI: Her colostomy is intact. She is eating a lot of food today, increase her appetite. CARDIOVASCULAR: S1, S2. LUNGS: Show questionable infiltrate. Please see further orders. ICU time 30 minutes.
--- NOTE | 2016-12-06 07:48 | XR ---
EXAMINATION TYPE: XR chest 1V DATE OF EXAM: 12/06/2016 7:05 AM HISTORY: Shortness of breath. COMPARISON: 12/05/2016 TECHNIQUE: Single view of the chest is submitted. FINDINGS: Demonstrated are scattered senescent parenchymal change. There is persistent right basilar infiltrate with a parapneumonic effusion. The left lung is clear. The heart is stable. Hilar and mediastinal structures are within normal limits. Degenerative changes are seen of the dorsal spine. IMPRESSION: 1. There is persistent right basilar infiltrate with a parapneumonic effusion. The left lung is gege r.
[2016-12-06] MEDS: BUDESONIDE 0.5 MG/2 ML NEBU INHALATION SCH ×2 (08:05→19:35)
[2016-12-06] MEDS: IPRATROPIUM-ALBUTEROL 3 ML NEB INHALATION SCH ×3 (08:05→19:35)
[2016-12-06] MEDS: CEFEPIME 2 GM in SODIUM CHLORIDE 0.9% 50 ML IVPB SCH ×2 (08:26→22:56)
[2016-12-06] MEDS: SODIUM CHLORIDE 0.9% 1,000 ML IV SCH ×4 (08:26→22:10)
[2016-12-06] MEDS: FAMOTIDINE 20 MG TAB PO SCH ×2 (08:27→21:22)
[2016-12-06] MEDS: APIXABAN 5 MG TAB PO SCH (08:27)
[2016-12-06] MEDS: POTASSIUM CHLORIDE ER 20 MEQ TAB.ER PO SCH ×4 (08:27→23:17)
[2016-12-06] MEDS: MAGNESIUM SULFATE-D5W PMX 1 GM in DEXTROSE/WATER 1 100ML.BAG IVPB SCH ×2 (09:39→10:42)
--- NOTE | 2016-12-06 10:11 | US ---
EXAMINATION TYPE: US chest DATE OF EXAM: 12/06/2016 10:05 AM COMPARISON: NONE CLINICAL HISTORY: right sided pleural effusion. EXAM MEASUREMENTS: Right Pleural Effusion fluid pocket: 8.2 cm Right skin to fluid thickness: 2.9 cm Right side marked for possible thoracentesis outside the dept. Pulmonologists are able to review the images in the patient?s EMR. IMPRESSIONS: Pleural effusion as noted.
[2016-12-06] MEDS ORDERED: VANCOMYCIN TROUGH DUE 1 EACH MISC MISCELLANE ONE (11:00)
--- NOTE | 2016-12-06 11:05 | CONS ---
DATE OF CONSULTATION: DATE OF SERVICE: 12/05/2016 REASON FOR CONSULTATION: Question of pneumonia and sepsis. HISTORY OF PRESENT ILLNESS: The patient is a 61-year-old female with a past medical history significant for metastatic Uterine cancer for which the patient has been getting her treatment at the [facility] in [place]. The patient did have surgery and chemo as well as radiation therapy. Last chemo has been about 11 days ago. The patient also had GI obstruction secondary to metastatic disease for which the patient did have a diverting colostomy that was done in July 2016. Patient apparently has been getting very weak after her last chemo. Has not been eating or drinking very well. The patient has been helped by her for most of her daily activity. This morning when she woke up the patient was speaking incoherently, not making any sense. So the patient was brought into the ER for further evaluation. There is no history of any fever, rigors or chills. In the ER, the patient noticed to be hypotensive requiring fluid boluses also noticed to be pancytopenic. She did have an x-ray with suggestion of infiltrate and possible effusion. Her UA was negative. Urine drug screen was positive though. Patient will be started on broad-spectrum antibiotic and admitted to the ICU and ID was consulted for further recommendation regarding antibiotic therapy. REVIEW OF SYSTEMS: CONSTITUTIONAL: Positive for weakness. No fever. EYES: No complaint. ENT: No complaint. RESPIRATORY: As per HPI. CARDIOVASCULAR: No complaint. GENITOURINARY: No complaint. GASTROINTESTINAL: No complaint. MUSCULOSKELETAL: No complaint. INTEGUMENTARY: No complaint. PSYCHOLOGIC: No complaint. ENDOCRINE: No complaint. NEUROLOGIC: No complaint. Past medical history breast cancer, history of metastatic uterine cancer, DVT. PAST SURGICAL HISTORY: Hysterectomy, bowel resection, diverting colostomy, right mastectomy. SOCIAL HISTORY: Remote history of smoking. No drinking or any drug use. FAMILY HISTORY: No pertinent findings noticed. ALLERGIES: No known allergies. Medications currently include patient is on Tylenol. DuoNeb, Eliquis, Pulmicort, cefepime 2 grams q.12 hours. She is on Colace, Pepcid, filgrastim, Solu-Cortef, Dilaudid, vancomycin, Levophed, K-Dur. On examination, blood pressure is 100/71 with a pulse of 83, temperature of 97.5. She is 98% on room air. General description is a middle-age female lying in bed in no distress. No tachypnea or accessory muscles respiration use. HEENT examination shows pallor. No scleral icterus. Oral mucous membrane is dry. NECK: Trachea central. No thyromegaly. LUNGS: Unlabored breathing with decreased breath sounds at the bases. No wheeze or crackles. HEART: S1, S2. Regular rate and rhythm. ABDOMEN: Soft, no tenderness. EXTREMITIES: No edema of the feet. SKIN EXAMINATION: No rashes or masses palpable. NEUROLOGICAL: The patient is awake, alert, oriented x2. Mood and affect normal. LABS: Hemoglobin 8.2 with the white count 0.2. Platelet count is 16. BUN of 8, creatinine 0.36. Potassium was 3.2. Urine has been negative. Urine drug screen positive for opiates and marijuana. DIAGNOSTIC IMPRESSION AND PLAN: Patient admitted to the hospital with mental status changes, weakness and hypotension, which could have been more likely metabolic. Clinical suspicion remains low for infectious etiology as the patient does not look toxic, not running any fever and no clear focus of infection. Her abdomen was soft on clinical examination. UA has been negative. Chest x-ray finding could be more likely atelectasis or a small pleural effusion rather than pneumonia as the patient does not have any symptoms of a cough or sputum production. PLAN: May continue short course of broad-spectrum antibiotic while awaiting for her condition to stabilize and culture to finalize; however, if all the cultures remain to be negative would recommend discontinuation of antibiotic therapy. Thank you for this consultation. We will follow this patient along with you. MARU
[2016-12-06] MEDS: FILGRASTIM-SNDZ 300 MCG/0.5 ML SYRINGE SQ SCH (12:18)
--- NOTE | 2016-12-06 15:37 | PN ---
CRITICAL CARE NOTE: DATE OF SERVICE: 12/06/2016 Critical care time spent: 35 minutes. Ms. Lulú Multani is seen, evaluated, examined. She is otherwise, awake and alert. She is extremely malnourished, emaciated, post chemotherapy. She has significant pancytopenia. She has been found to have a pleural effusion on the right side as well along with right lower lobe pneumonia cannot be excluded. Patient's hemodynamic status remains marginal, unable to come off of the Levophed drip. The patient is on high dose hydrocortisone for presumed adrenal insufficiency as well. Last set of vitals include blood pressure is blood pressure 96/68 on 3 mcg Levophed, respiratory rate 16 to 18, heart rate 90, temperature 98, saturation 95%, current temperature 97.7. HEENT EXAMINATION: Otherwise unremarkable. NECK: Supple without any lymphadenopathy and neck veins are prominent. LUNGS: Decreased air entry, dullness to percussion in the right base is present. HEART: Regular rate and rhythm. S1 and S2 audible. ABDOMEN: Soft. No rebound or rigidity. EXTREMITIES: +1 peripheral pulses. NEUROLOGICAL EXAMINATION: Otherwise, awake and alert. Labs reviewed. Medications reviewed as well. Chest x-ray finding as dictated above. Other laboratory data reviewed which includes white cell count is only 600, hemoglobin of 7.5, hematocrit 21, platelet count of 23,000. Sodium is 130, potassium 4.3. BUN and creatinine are 7 and 0.3, glucose 137, phosphorus 7.2. Albumin is 1.8 only, vancomycin 12.3. Current medications reviewed and include: 1. DuoNeb unit dose 4 times a day. 2. Pulmicort 2 times a day. 3. Cefepime 2 grams q.12. 4. Colace. 5. Pepcid. 6. Also on Filgrastim. 7. Hydrocortisone 100 q.8 hourly. 8. Dilaudid. 9. Also on Levophed. 10. Zofran. 11. Potassium. 12. Vancomycin. IMPRESSION: 1. Severe sepsis, and right-sided pneumonia along with right pleural effusion. 2. Septic shock. 3. Pancytopenia. 4. Large pleural effusion on the right side 5. Other issues include metastatic ovarian cancer. 6. Protein calorie malnourishment with extremely emaciated catabolic and cachectic status. PLAN: As above. Continue antibiotics. Continue supportive care. We will observe the pleural effusion closely. May very well be associated with malnourished status. We will discuss with oncology if needs to be tapped; however, it does carry a relatively high risk of complication. Will follow. Critical care time spent 35 minutes. Other issues include poor urine output. We will continue to give fluid resuscitation. Given another bolus of crystalloids.
--- NOTE | 2016-12-06 16:03 | CDI ---
In responding to this query, please exercise your independent professional judgment. The [facility] Coding Staff and Clinical Documentation Specialists appreciate your assistance in clarifying documentation, maintaining compliance with coding guidelines, accurately documenting patients condition and capturing severity of illness. The fact that a question is asked does not imply that any particular answer is desired or expected. Communication forms are a method of clarifying documentation and are not made part of the Legal Health Record. Thank you in advance for your clarification. Last Revision, October 2015 Vania Murray [address] [place] [address] Documentation Clarification Form Date: 12/06/2016 3:38:00 PM From: Bhargavi Rossi RN, CDS Admit Date: 12/04/2016 7:00:00 PM Patient Name: Lulú Multani Visit Number: [id number] Dr. Hiram Becerril, Altered mental status was documented in the ED, H&P and Progress notes 12/05/16 Patient history/risk factors: Ovarian cancer under current treatment (chemo) prior to admission, History of Breast and uterine cancer, Presents with confusion Clinical Indicators: Oriented x1 on admission per nursing, oriented x 2 per ID consult, need prompting but oriented person/place time per Oncology consult, CT Brain negative Labs: WBC 0.2-0.6, PLT 16-23, RBC 2.43 Treatment: IV Fluids, IV Antibiotics, ICU monitoring, In your professional opinion, please clarify the etiology of the altered mental status, if known. Metabolic Encephalopathy Other condition (please specify) Unable to determine Please document in your progress notes and discharge summary in order to capture severity of illness and risk of mortality. Include clinical findings that support your diagnosis. FYI: Press F11 to launch patient chart. Place X here if this finding has no clinical significance, is not applicable or if you are not able to provide any additional documentation. MTDD
--- NOTE | 2016-12-06 16:26 | CDI ---
In responding to this query, please exercise your independent professional judgment. The [facility] Coding Staff and Clinical Documentation Specialists appreciate your assistance in clarifying documentation, maintaining compliance with coding guidelines, accurately documenting patients condition and capturing severity of illness. The fact that a question is asked does not imply that any particular answer is desired or expected. Communication forms are a method of clarifying documentation and are not made part of the Legal Health Record. Thank you in advance for your clarification. Last Revision, October 2015 Vania Murray [address] [place] [address] Documentation Clarification Form Date: 12/06/2016 4:04:00 PM From: Bhargavi Rossi RN, CDS Admit Date: 12/04/2016 7:00:00 PM Patient Name: Lulú Multani Visit Number: [id number] Dr. Hiram Becerril Patient history/risk factors: Uterine and Breast cancer with chemo treatment current prior to admission, Clinical Indicators: Altered mental status documented in H&P and progress notes , Vitals: Systolic BP Range 87-99, NA 131, HR 90-104 Afebrile, Resp rate: 20s-50 on 12/05 Treatment: NS @ 250 then NS @100, Levophed titration, ICU monitoring, In your professional opinion, can you please specify the type of shock if known ? Hypovolemic Shock (Please specify cause if known) Shock-other (please specify) Other, please specify Unable to determine Please document in your progress notes and discharge summary in order to capture severity of illness and risk of mortality. Include clinical findings that support your diagnosis. FYI: Press F11 to launch patient chart. Place X here if this finding has no clinical significance, is not applicable or if you are not able to provide any additional documentation. VOND
--- NOTE | 2016-12-06 18:06 | P.PN ---
Subjective Principal diagnosis: AMS Pt seen today in follow up, she thinks she is more clear in her thinking, no reported bleeding, pain. Has no appetite. Objective - Vital Signs Vital signs: Vital Signs Temp 97.8 F 12/06/16 16:37 Pulse 92 12/06/16 16:37 Resp 18 12/06/16 16:37 BP 92/65 12/06/16 16:37 Pulse Ox 93 L 12/06/16 16:37 Intake & Output 12/05/16 12/06/16 12/06/16 18:59 06:59 18:59 Intake Total 2661.376 2909.625 2793.999 Output Total 340 395 490 Balance 2321.376 2514.625 2303.999 Weight 61.5 kg 61.5 kg Intake: IV 765 1850 1325 Cefepime 2 gm In Sodium 100 Chloride 0.9% 50 ml @ 100 mls/hr IVPB ONCE STA Rx# :[id number] Cefepime 2 gm In Sodium 50 Chloride 0.9% 50 ml @ 100 mls/hr IVPB Q12HR [facility] Rx #:[id number] Sodium Chloride 0.9% 1, 800 950 000 ml @ 100 mls/hr IV . Q10H [facility] Rx#:[id number] Sodium Chloride 0.9% 1, 750 000 ml @ 250 mls/hr IV . Q4H [facility] Rx#:[id number] Sodium Chloride 0.9% 1, 415 000 ml @ 75 mls/hr IV . [id number] [facility] Rx#:[id number] Vancomycin 1,000 mg In 250 Sodium Chloride 0.9% 250 ml @ 125 mls/hr IVPB ONCE ONE Rx#:[id number] Vancomycin 750 mg In 250 125 Sodium Chloride 0.9% 250 ml @ 125 mls/hr IVPB Q8H [facility] Rx#:[id number] platelets at 125 ml/hr 250 Intake, IV Titration 1026.376 369.625 923.999 Amount Magnesium Sulfate-D5w Pmx 200 1 gm In Dextrose/Water 1 100ml.bag @ 100 mls/hr IVPB Q1H [facility] Rx#: [id number] Magnesium Sulfate-D5w Pmx 100 1 gm In Dextrose/Water 1 100ml.bag @ 100 mls/hr IVPB Q1H [facility] Rx#: [id number] Norepinephrin 4 mg-0.9% 326.376 119.625 73.999 Ns Pmx 4 mg In 250 ml @ Titrate IV .Q0M [facility] Rx#: [id number] Sodium Chloride 0.9% 1, 500 250 000 ml @ 250 mls/hr IV . Q4H [facility] Rx#:[id number] Sodium Chloride 0.9% 1, 750 000 ml @ 250 mls/hr IV . Q4H [facility] Rx#:[id number] Oral 870 690 330 Blood Product 215 Platelet Pheresis Acda1 215 Unit [id number] Output: Urine 340 95 90 Stool 300 400 Other: Voiding Method Indwelling Catheter Indwelling Catheter Indwelling Catheter # Bowel Movements 1 - Constitutional General appearance: Present: cooperative, thin - Respiratory Respiratory: bilateral: CTA - Cardiovascular Heart sounds: normal: S1, S2 - Peripheral edema leg Peripheral Edema: bilateral: 3+, Pitting - Gastrointestinal General gastrointestinal: Present: normal bowel sounds, soft - Musculoskeletal Musculoskeletal: Present: generalized weakness - Psychiatric Psychiatric: Present: A&O x's 3 - Labs CBC & Chem 7: 12/06/16 04:13 12/06/16 04:13 Labs: Abnormal Lab Results - Last 24 Hours (Table) 12/06/16 12/06/16 Range/Units 04:13 04:13 WBC 0.6 L* (3.8-10.6) k/uL RBC 2.24 L (3.80-5.40) m/uL Hgb 7.5 L (11.4-16.0) gm/dL Hct 21.2 L (34.0-46.0) % RDW 17.4 H (11.5-15.5) % Plt Count 23 L* (150-450) k/uL Sodium 132 L (137-145) mmol/L Creatinine 0.30 L (0.52-1.04) mg/dL Glucose 137 H (74-99) mg/dL Calcium 7.2 L (8.4-10.2) mg/dL AST 13 L (14-36) U/L Total Protein 4.2 L (6.3-8.2) g/dL Albumin 1.8 L (3.5-5.0) g/dL Microbiology - Last 24 Hours (Table) 12/04/16 22:45 Urine Culture - Final Urine,Catheterized Assessment and Plan (1) Metastatic adenocarcinoma of ovary Narrative/Plan: Pt under the care of Dr. Gonzalez at [facility], last treatment 10 days ago. Status: Chronic (2) Pancytopenia due to chemotherapy Narrative/Plan: Hgb stable, platelets slightly improved, WBC only slightly improved. No PRBC transfusion, platelets being transfused, cont Zarxio. Status: Acute (3) Pulmonary emboli Narrative/Plan: Pt records reviewed, she had propagation of PE when she was only briefly off of anticoagulation for paracentesis per notes from [facility]. She was changed from Xarelto to eliquis at that time. Her records indicate that her platelets were always >50,000 when she was being evaluated. Case reviewed with Dr. Pascual. With the onset of thrombocytopenia-likely treatment related-and her need for anticoagulation platelets are going to be transfused at this time to keep 40,000 -50,000. We will try to contact Dr. Gonzalez for his recommendations regarding this situation. 1 unit single donor platelets ordered, CBC 2-4 hours post transfusion, call with results. CBC daily Close monitoring of pt for bleeding Status: Acute
[2016-12-06] MEDS: VANCOMYCIN 1,000 MG in SODIUM CHLORIDE 0.9% 250 ML IVPB SCH (18:33)
[2016-12-06 18:51] LABS: Anisocytosis Slight; CHCM 33.2; HDW 3.58; MCH 32.3 pg (25.0-35.0); MCHC 33.5 g/dL (31.0-37.0); MCV 96.4 fL (80.0-100.0); Macrocytosis Slight; Mean Platelet Volume 9.1; Poikilocytosis Slight; RBC 2.03 m/uL (3.80-5.40); RDW 17.6 % (11.5-15.5)
[2016-12-06 18:59] LABS: HCT 19.5 % (34.0-46.0); HGB 6.5 gm/dL (11.4-16.0); WBC 0.4 k/uL (3.8-10.6)
[2016-12-06 19:20] LABS: Potassium 3.2 mmol/L (3.5-5.1)
[2016-12-06] MEDS: HYDROmorphone 2 MG TAB PO PRN (21:21)
[2016-12-06] MEDS ORDERED: Potassium Replacement Protocol 1 EACH MISC MISCELLANE PRN (21:29)
[2016-12-07] MEDS: SODIUM CHLORIDE 0.9% 1,000 ML IV SCH ×5 (00:04→23:57)
[2016-12-07] MEDS: HYDROCORTISONE SUCCINATE 100 MG/2 ML VIAL IV SCH ×4 (00:05→23:57)
[2016-12-07 02:33] LABS: Anisocytosis Slight; CH 31.9; CHCM 32.9; HCT 22.1 % (34.0-46.0); HDW 3.42; HGB 7.2 gm/dL (11.4-16.0); Hypochromasia Slight; MCH 31.9 pg (25.0-35.0); MCHC 32.7 g/dL (31.0-37.0); MCV 97.4 fL (80.0-100.0); Macrocytosis Slight; Mean Platelet Volume 9.2; Poikilocytosis Slight; RBC 2.27 m/uL (3.80-5.40); RDW 17.2 % (11.5-15.5)
[2016-12-07 02:35] LABS: WBC 0.6 k/uL (3.8-10.6)
[2016-12-07] MEDS: VANCOMYCIN 1,000 MG in SODIUM CHLORIDE 0.9% 250 ML IVPB SCH ×2 (03:21→12:10)
[2016-12-07] MEDS: HYDROmorphone 2 MG TAB PO PRN ×4 (03:31→23:58)
[2016-12-07 05:52] LABS: Anion Gap 3 mmol/L; Blood Urea Nitrogen 7 mg/dL (7-17); Calcium 7.1 mg/dL (8.4-10.2); Carbon Dioxide 27 mmol/L (22-30); Chloride 106 mmol/L (98-107); Glucose 95 mg/dL (74-99); Magnesium 1.8 mg/dL (1.6-2.3); Non-African American GFR(MDRD) >60 (>60 ml/min/1.73 sqM); Phosphorous 2.1 mg/dL (2.5-4.5); Potassium 3.2 mmol/L (3.5-5.1); Sodium 136 mmol/L (137-145)
[2016-12-07 05:54] LABS: Anisocytosis Slight; CH 32.2; CHCM 32.9; HCT 22.9 % (34.0-46.0); HDW 3.47; HGB 7.3 gm/dL (11.4-16.0); Hypochromasia Slight; Immature Gran Flag Moderate; MCH 31.3 pg (25.0-35.0); MCHC 31.9 g/dL (31.0-37.0); MCV 98.2 fL (80.0-100.0); Macrocytosis Slight; Mean Platelet Volume 8.7; Poikilocytosis Slight; RBC 2.33 m/uL (3.80-5.40); RDW 17.2 % (11.5-15.5); WBC (Perox) 0.51
[2016-12-07 06:04] LABS: WBC 0.6 k/uL (3.8-10.6)
[2016-12-07] MEDS ORDERED: Potassium Replacement Protocol 1 EACH MISC MISCELLANE PRN (06:21)
[2016-12-07] MEDS ORDERED: Magnesium Replacement Protocol 1 EACH MISC MISCELLANE PRN (06:25)
[2016-12-07 06:45] LABS: Add Differential Manual Differential
[2016-12-07 06:47] LABS: Manual Review Performed
[2016-12-07] MEDS ORDERED: POTASSIUM CHLORIDE 10 MEQ, LIDOCAINE 2% INJ 10 MG in SODIUM CHLORIDE 0.9% 100 ML IV SCH (07:00)
[2016-12-07] MEDS: MAGNESIUM SULFATE-D5W PMX 1 GM in DEXTROSE/WATER 1 100ML.BAG IVPB SCH ×2 (07:10→08:45)
[2016-12-07] MEDS: POTASSIUM CHLORIDE ER 20 MEQ TAB.ER PO SCH ×4 (07:11→21:36)
--- NOTE | 2016-12-07 07:30 | PN ---
DATE OF SERVICE: 12/06/2016 Reason for followup is question of pneumonia. INTERVAL HISTORY: The patient is afebrile. She is hemodynamically more stable, she is more awake, alert, breathing comfortably. No significant chest pain, occasional cough, no abdominal pain. No nausea, vomiting or any diarrhea. On examination, blood pressure 102/67 with a pulse of 94, temperature 97.8. She is 95% on room air. General description is a middle-age female, up in the bed in no distress. RESPIRATORY SYSTEM: Unlabored breathing with decreased breath sounds at the base. HEART: S1, S2, regular rate and rhythm. ABDOMEN: Soft, no tenderness. LABS: Hemoglobin is 6.5, white count is 0.4 with a BUN of 7, creatinine 0.30, Blood culture so far negative. Urine is negative. DIAGNOSTIC IMPRESSION AND PLAN: Patient admitted to hospital with mental status changes, weakness, and the patient did have underlying malignancy, on chemo with significant neutropenia. She did have some abnormalities on the chest x-ray more likely fluid related because the patient has not been behaving as pneumonia. Patient so far with no fever. If the cultures barrel turner to be negative, antibiotic can safely discontinue and the patient watched closely. Currently on cefepime and Vanco. Continue supportive care. MTDD
[2016-12-07] MEDS: BUDESONIDE 0.5 MG/2 ML NEBU INHALATION SCH ×2 (07:49→19:05)
[2016-12-07] MEDS: IPRATROPIUM-ALBUTEROL 3 ML NEB INHALATION SCH ×3 (07:49→19:05)
--- NOTE | 2016-12-07 07:54 | XR ---
EXAMINATION TYPE: XR chest 1V DATE OF EXAM: 12/07/2016 6:32 AM COMPARISON: 12/06/2016 INDICATION: Pneumonia TECHNIQUE: Single frontal view of the chest is obtained. FINDINGS: The heart size is normal. The pulmonary vasculature is normal. There is blunting of bilateral costophrenic angle suggestive for small bilateral pleural effusions. O pacity remains over the right lower lung field compatible with pneumonia. Port is present on the left tip in the proximal right atrium. EKG leads overlie the chest. IMPRESSION: 1. Right lower lobe infiltrate and pleural effusion. Correlate for pneumonia. A left pleural effusion is likely present.
[2016-12-07] MEDS: APIXABAN 5 MG TAB PO SCH ×2 (08:47→20:50)
[2016-12-07] MEDS: FAMOTIDINE 20 MG TAB PO SCH ×2 (08:48→20:51)
[2016-12-07] MEDS: CEFEPIME 2 GM in SODIUM CHLORIDE 0.9% 50 ML IVPB SCH ×2 (08:48→20:51)
--- NOTE | 2016-12-07 10:03 | US ---
EXAMINATION TYPE: US abdomen limited DATE OF EXAM: 12/07/2016 8:23 AM COMPARISON: NONE CLINICAL HISTORY: rule out ascites. Moderate amount of ascites seen in all quadrants RUQ: 1.8 cm, RLQ: 4.9 cm, LUQ: 3.1 cm, LLQ: 4.2 cm IMPRESSION: 1. Ascites
[2016-12-07] MEDS: FILGRASTIM-SNDZ 300 MCG/0.5 ML SYRINGE SQ SCH (12:13)
--- NOTE | 2016-12-07 13:35 | P.PN ---
Subjective This is a 61-year-old female being evaluated and examined today in the intensive care unit. The patient came in to the emergency room for mental status changes. Patient was accompanied by her and son who stated that she could not get up this morning and was not being herself. Patient has been much less active, her intake has decreased and she has not been able to communicate with her family. The patient does have a history of ovarian cancel cancer and some possible abdominal metastasis per the family. She currently is being seen by,institute and each right those records are not readily available at this time. Patient states her last chemotherapy treatment was about 2 weeks ago. She denies having any fevers or any obvious signs of infection, however she has not able to provide much history. Her blood work showed pancytopenia as well as electrolyte abnormalities including hypokalemia. She was also dehydrated. The patient was started on IV fluids and her electrolytes were replaced. The patient does have a Mediport in place. Oncology was put on consult as well. Upon examination the patient is resting up in bed on 2 L of supplemental oxygen with family at bedside. Patient does get short of breath with exertion or extensive conversations. She denies any cough or congestion at this time. She continues toappears very weak and cachectic. ultrasound of the abdomen showed ascites in all 4 quadrants patient may need to be tapped. Objective - Vital Signs Vital signs: Vital Signs Temp 97.7 F 12/07/16 11:00 Pulse 75 12/07/16 12:30 Resp 20 12/07/16 12:30 BP 101/67 12/07/16 12:30 Pulse Ox 100 12/07/16 12:30 Intake & Output 12/06/16 12/07/16 12/07/16 18:59 06:59 18:59 Intake Total 3943.999 2106 625 Output Total 525 300 455 Balance 3418.999 1806 170 Weight 61.5 kg 65.6 kg 65.6 kg Intake: IV 1325 950 Cefepime 2 gm In Sodium 100 Chloride 0.9% 50 ml @ 100 mls/hr IVPB Q12HR [facility] Rx #:[id number] Sodium Chloride 0.9% 1, 950 100 000 ml @ 100 mls/hr IV . Q10H [facility] Rx#:[id number] Vancomycin 750 mg In 125 750 Sodium Chloride 0.9% 250 ml @ 125 mls/hr IVPB Q8H [facility] Rx#:[id number] platelets at 125 ml/hr 250 Intake, IV Titration 1673.999 650 625 Amount Magnesium Sulfate-D5w Pmx 100 1 gm In Dextrose/Water 1 100ml.bag @ 100 mls/hr IVPB Q1H [facility] Rx#: [id number] Norepinephrin 4 mg-0.9% 73.999 Ns Pmx 4 mg In 250 ml @ Titrate IV .Q0M [facility] Rx#: [id number] Sodium Chloride 0.9% 1, 400 500 000 ml @ 100 mls/hr IV . Q10H [facility] Rx#:[id number] Sodium Chloride 0.9% 1, 1500 250 000 ml @ 250 mls/hr IV . Q4H [facility] Rx#:[id number] Vancomycin 1,000 mg In 125 Sodium Chloride 0.9% 250 ml @ 125 mls/hr IVPB Q8H [facility] Rx#:[id number] Oral 730 Blood Product 215 506 Platelet Pheresis Acda1 215 Unit [id number] Platelet Pheresis Acda1 196 Unit [id number] Rc As-1 Unit 310 [id number] Output: Urine 125 300 155 Stool 400 300 Other: Voiding Method Indwelling Catheter Indwelling Catheter Indwelling Catheter # Voids 1 # Bowel Movements 1 - Exam GENERAL EXAM: Alert, comfortable in no apparent distress. HEAD: Normocephalic. EYES: Normal reaction of pupils, equal size. NOSE: Clear with pink turbinates. THROAT: No erythema or exudates. NECK: No masses, no JVD. CHEST: No chest wall deformity. LUNGS: Equal air entry with no crackles, wheeze, rhonchi or dullness. Bases diminished CVS: S1 and S2 normal with no audible mumurs, regular rhythm. ABDOMEN: No hepatosplenomegaly, normal bowel sounds, no guarding or rigidity. EXTREMITIES: +1-2 edema noted, pedal pulses palpable. SKIN: No rashes CENTRAL NERVOUS SYSTEM: No focal deficits, tone is weak in all 4 extremities. - Labs CBC & Chem 7: 12/07/16 05:30 12/07/16 05:30 Labs: Abnormal Lab Results - Last 24 Hours (Table) 12/06/16 12/06/16 12/06/16 Range/Units 10:35 18:27 18:27 WBC 0.4 L* (3.8-10.6) k/uL RBC 2.03 L (3.80-5.40) m/uL Hgb 6.5 L* (11.4-16.0) gm/dL Hct 19.5 L* (34.0-46.0) % RDW 17.6 H (11.5-15.5) % Plt Count 43 L* D (150-450) k/uL Sodium (137-145) mmol/L Potassium 3.2 L (3.5-5.1) mmol/L Creatinine (0.52-1.04) mg/dL Calcium (8.4-10.2) mg/dL Phosphorus (2.5-4.5) mg/dL Crossmatch See Detail 12/07/16 12/07/16 12/07/16 Range/Units 02:20 05:30 05:30 WBC 0.6 L* 0.6 L* (3.8-10.6) k/uL RBC 2.27 L 2.33 L (3.80-5.40) m/uL Hgb 7.2 L 7.3 L (11.4-16.0) gm/dL Hct 22.1 L 22.9 L (34.0-46.0) % RDW 17.2 H 17.2 H (11.5-15.5) % Plt Count 53 L 53 L (150-450) k/uL Sodium 136 L (137-145) mmol/L Potassium 3.2 L (3.5-5.1) mmol/L Creatinine 0.31 L (0.52-1.04) mg/dL Calcium 7.1 L (8.4-10.2) mg/dL Phosphorus 2.1 L (2.5-4.5) mg/dL Crossmatch Microbiology - Last 24 Hours (Table) 12/04/16 22:45 Urine Culture - Final Urine,Catheterized Assessment and Plan Plan: Assessment Small right pleural effusion Hypotension Pancytopenia due to chemotherapy Hypokalemia Dehydration Altered mental status Ovarian cancer, currently being treated at, [facility] in [place]. protein-calorie malnutrition Lab Medications have been reviewed and will be continued. We will add nebulizer treatments to help with her shortness of breath. Electrolytes replaced per protocol. We will increase IV fluids to 75 an hour. Appreciate input from oncology. Infectious disease also on consult. Dietitian on consult. GI and DVT prophylactics. We will continue to monitor her pleural effusions closely.. We will continue to monitor labs/results and adjust treatment as necessary. I performed an examination of the patient and discussed their management with the nurse practitioner. I have reviewed the nurse practitioner's note and agree with the documented findings and plan of care.
[2016-12-08 05:16] LABS: Anisocytosis Slight; CH 32.5; CHCM 33.8; HCT 23.7 % (34.0-46.0); HDW 3.71; HGB 8.1 gm/dL (11.4-16.0); Immature Gran Flag Marked; MCH 32.8 pg (25.0-35.0); MCV 96.4 fL (80.0-100.0); Macrocytosis Slight; Mean Platelet Volume 9.6; Poikilocytosis Slight; RBC 2.46 m/uL (3.80-5.40); RDW 17.1 % (11.5-15.5); WBC (Perox) 1.97
[2016-12-08 05:17] LABS: WBC 1.9 k/uL (3.8-10.6)
[2016-12-08 05:20] LABS: ALT 23 U/L (9-52); AST 12 U/L (14-36); Alkaline Phosphatase 73 U/L (38-126); Anion Gap 1 mmol/L; Blood Urea Nitrogen 8 mg/dL (7-17); Calcium 7.5 mg/dL (8.4-10.2); Carbon Dioxide 27 mmol/L (22-30); Chloride 106 mmol/L (98-107); Glucose 87 mg/dL (74-99); Magnesium 1.8 mg/dL (1.6-2.3); Non-African American GFR(MDRD) >60 (>60 ml/min/1.73 sqM); Phosphorous 1.6 mg/dL (2.5-4.5); Potassium 3.8 mmol/L (3.5-5.1); Sodium 134 mmol/L (137-145); Total Bilirubin 0.3 mg/dL (0.2-1.3)
[2016-12-08 05:53] LABS: Add Differential Manual Differential
[2016-12-08 05:58] LABS: Manual Review Performed; Myelocytes % 2.5 %; Nucleated Red Blood Cells 2 /100 WBC (0-0); Total Cells Counted 200
[2016-12-08 05:59] LABS: Polychromasia Present
[2016-12-08] MEDS: IPRATROPIUM-ALBUTEROL 3 ML NEB INHALATION SCH ×3 (08:29→20:08)
[2016-12-08] MEDS: BUDESONIDE 0.5 MG/2 ML NEBU INHALATION SCH ×2 (08:29→20:08)
--- NOTE | 2016-12-08 08:29 | XR ---
EXAMINATION TYPE: XR chest 1V DATE OF EXAM: 12/08/2016 6:33 AM COMPARISON: 12/07/2016 HISTORY: 61-year-old female pneumonia TECHNIQUE: Single frontal view of the chest is obtained. FINDINGS: Left anterior chest wall injection port with catheter tip at the cavoatrial junction. Heart is normal size. Pulmonary vasculature within normal limits. Continued small to moderate right and small left p leural effusions with bibasilar opacities. IMPRESSION: Overall similar [id number] right and small left pleural effusions with adjacent atelectasis an d/or consolidation.
[2016-12-08] MEDS: HYDROCORTISONE SUCCINATE 100 MG/2 ML VIAL IV SCH ×2 (08:40→15:58)
[2016-12-08] MEDS: HYDROmorphone 2 MG TAB PO PRN ×3 (08:40→20:19)
[2016-12-08] MEDS: APIXABAN 5 MG TAB PO SCH ×2 (08:40→20:19)
[2016-12-08] MEDS: POTASSIUM CHLORIDE ER 20 MEQ TAB.ER PO SCH ×2 (08:41→20:19)
[2016-12-08] MEDS: FAMOTIDINE 20 MG TAB PO SCH ×2 (08:41→20:19)
[2016-12-08] MEDS: CEFEPIME 2 GM in SODIUM CHLORIDE 0.9% 50 ML IVPB SCH ×2 (08:50→20:19)
--- NOTE | 2016-12-08 09:08 | PN ---
DATE OF SERVICE: 12/07/2016 REASON FOR FOLLOWUP: Leukopenia and question of infection, pneumonia. INTERVAL HISTORY: The patient is afebrile. She is breathing comfortably. Denies significant chest pain. Occasional cough. No abdominal pain. No nausea or vomiting. On examination, blood pressure 105/76, pulse of 105, temperature 98. Saturating 93% on room air. GENERAL DESCRIPTION: A middle-age female up in the bed in no distress. RESPIRATORY SYSTEM: Unlabored breathing. Clear to auscultation anteriorly. HEART: S1, S2 with regular rate and rhythm. ABDOMEN: Soft, no tenderness. LABS: Hemoglobin is 7.3, white count 0.6, BUN of 7, creatinine 0.31. Blood culture has been negative. Chest x-ray with right-sided atelectasis and effusion. DIAGNOSTIC IMPRESSION AND PLAN: Patient admitted to the hospital with mental status changes which is likely metabolic in a patient who did have evidence of neutropenia from her underlying chemo with clinical suspicion remaining to be negative for any infectious etiology, with the cultures negative. We will go ahead and discontinue the vancomycin. Continue Zosyn for a short course. Continue supportive care.
[2016-12-08] MEDS: FILGRASTIM-SNDZ 300 MCG/0.5 ML SYRINGE SQ SCH (09:28)
[2016-12-08] MEDS: SODIUM CHLORIDE 0.9% 1,000 ML IV SCH (09:29)
[2016-12-08] MEDS: MAGNESIUM SULFATE-D5W PMX 1 GM in DEXTROSE/WATER 1 100ML.BAG IVPB SCH ×2 (09:31→13:17)
--- NOTE | 2016-12-08 09:57 | CDI ---
In responding to this query, please exercise your independent professional judgment. The [facility] Coding Staff and Clinical Documentation Specialists appreciate your assistance in clarifying documentation, maintaining compliance with coding guidelines, accurately documenting patients condition and capturing severity of illness. The fact that a question is asked does not imply that any particular answer is desired or expected. Communication forms are a method of clarifying documentation and are not made part of the Legal Health Record. Thank you in advance for your clarification. Last Revision, June 2015 Vania Murray [address] [place] [address] Documentation Clarification Form Date: 12/08/2016 9:36:00 AM From: Bhargavi Rossi RN, CDS Admit Date: 12/04/2016 7:00:00 PM Patient Name: Lulú Multani Visit Number: [id number] Dr. Daryl Bergman / Gia Jones NP, Protein-Calorie Malnutrition has been documented in progress note 12/07/16 History/Risk Factors: Ovarian cancer, mental status changes, Clinical Indicators: Albumin/ Pre albumin/Total Protein: Albumin 1.8, Total Protein 4.0, Insufficient energy intake: Oral intake 0-50%, Treatment: Ensure Enlive oral supplement Dietary Consult: Involuntary weight loss, BMI 22.5, In your professional opinion, can you please clarify if these findings signify one of the following conditions? Moderate Protein-Calorie Malnutrition Severe Protein-Calorie Malnutrition Other condition, please specify Unable to determine Please document in your progress notes and discharge summary in order to capture severity of illness and risk of mortality. Include clinical findings that support your diagnosis. FYI: Press F11 to launch patient chart. Place X here if this finding has no clinical significance, is not applicable or if you are not able to provide any additional documentation. MTDD
[2016-12-08] MEDS ORDERED: VANCOMYCIN TROUGH DUE 1 EACH MISC MISCELLANE ONE (10:00)
--- NOTE | 2016-12-08 10:15 | PN ---
SUBJECTIVE: This is a 61-year-old white female with altered mental status and severe pancytopenia. She has ovarian cancer with abdominal ascites, which is being paracentesis and last chemo was 2 weeks ago. She is improving since yesterday. She is getting 1 unit of blood and 2 units of platelets. Appetite is slowly improving. Her temp 97.7, pulse 70 to 75, respiratory rate 18 to 20, blood pressure 101/67, pulse ox 100%. She is thin, cachectic. No acute distress. Giving appropriate answers. Neck is supple. No masses. Lungs are diminished especially on the right lower lobe. ABDOMEN: No hepatosplenomegaly. Some mild ascitic wave. EXTREMITIES: She is thin, cachectic. 1 to 2+ edema. No rash, excoriation, bruising. Hemoglobin is 7.3, white count 0.6, platelets 53,000. Sodium 136, potassium 3.2. ASSESSMENT: 1. Right pleural fusion. 2. Hypotension. She has been weaned off her Levophed. 3. Pancytopenia due to chemotherapy, status post 2 units of platelets and 1 unit of blood. 4. Hypokalemia with potassium replacement. 5. Dehydration, improving. 6. Altered mental status, improving. 7. Ovarian cancer with abdominal ascites. PLAN: Continue with IV antibiotics, IV fluids, dietary. Watch for pleural fusion. Nebulizers for her breathing. Continue on current therapy. When blood counts improve she will be sent home and continue with PT, OT. ICU time: 30 minutes.
--- NOTE | 2016-12-08 18:46 | P.PN ---
Subjective Principal diagnosis: AMS Pt seen today in follow up. Mental status is improved. Patient states difficulty in remembering all of the events that have occurred over the last several days. Patient's appetite continues to be poor but, no acute nausea or vomiting, her abdomen is distended and firm, she is questioning when she may be able to have another paracentesis. Patient would like the Regalado removed as soon as possible. Her legs continue to be swollen, she is very weak. Objective - Vital Signs Vital signs: Vital Signs Temp 97.2 F L 12/08/16 12:00 Pulse 89 12/08/16 17:00 Resp 13 12/08/16 17:00 BP 99/70 12/08/16 17:00 Pulse Ox 98 12/08/16 17:00 Intake & Output 12/07/16 12/08/16 12/08/16 18:59 06:59 18:59 Intake Total 1145 1200 1100 Output Total 670 355 600 Balance 475 845 500 Weight 65.6 kg 76.7 kg 65.6 kg Intake: Intake, IV Titration 1025 1200 1100 Amount Sodium Chloride 0.9% 1, 900 1200 1100 000 ml @ 100 mls/hr IV . Q10H [facility] Rx#:[id number] Vancomycin 1,000 mg In 125 Sodium Chloride 0.9% 250 ml @ 125 mls/hr IVPB Q8H [facility] Rx#:[id number] Oral 120 Output: Urine 270 255 300 Stool 400 100 300 Other: Voiding Method Indwelling Catheter Indwelling Catheter Indwelling Catheter # Voids 1 1 - Constitutional General appearance: Present: cooperative, mild distress, thin - EENT Eyes: Present: normal appearance - Respiratory Respiratory: bilateral: diminished - Cardiovascular Heart sounds: normal: S1, S2 - Peripheral edema leg Peripheral Edema: bilateral: 3+, Pitting - Gastrointestinal Gastrointestinal Comment(s): Abdomen is firm to the touch General gastrointestinal: Present: decreased bowel sounds, distended, tenderness - Neurologic Neurologic: Present: CNII-XII intact - Musculoskeletal Musculoskeletal: Present: generalized weakness - Psychiatric Psychiatric: Present: A&O x's 3, appropriate affect, intact judgment & insight - Labs CBC & Chem 7: 12/08/16 05:00 12/08/16 05:00 Labs: Abnormal Lab Results - Last 24 Hours (Table) 12/08/16 12/08/16 Range/Units 05:00 05:00 WBC 1.9 L* (3.8-10.6) k/uL RBC 2.46 L (3.80-5.40) m/uL Hgb 8.1 L (11.4-16.0) gm/dL Hct 23.7 L (34.0-46.0) % RDW 17.1 H (11.5-15.5) % Plt Count 55 L (150-450) k/uL Lymphocytes # (Manual) 0.1 L (1.0-4.8) k/uL Nucleated RBCs 2 H (0-0) /100 WBC Sodium 134 L (137-145) mmol/L Creatinine 0.30 L (0.52-1.04) mg/dL Calcium 7.5 L (8.4-10.2) mg/dL Phosphorus 1.6 L (2.5-4.5) mg/dL AST 12 L (14-36) U/L Total Protein 4.0 L (6.3-8.2) g/dL Albumin 1.8 L (3.5-5.0) g/dL - Imaging and Cardiology CT scan - chest: report reviewed US - abdomen: report reviewed Assessment and Plan (1) Metastatic adenocarcinoma of ovary Narrative/Plan: Patient has been being treated in [place]. Patient would like to move her care closer to home. We will schedule her for a follow-up in our office after discharge. We will request records from her treating oncologist and determine the plan of care. Status: Chronic (2) Pancytopenia due to chemotherapy Narrative/Plan: Patient's pancytopenia seems to have stabilized. Patient continues on G-CSF for her low white blood cell count and neutropenia. Hemoglobin stable at 8.1. Platelet count stable at 55,000. Patient is okay to continue anticoagulation at this time. Status: Acute (3) Pulmonary emboli Narrative/Plan: Platelets 55,000 today, okay to continue eliquis Status: Acute Plan: Patient's labs will be evaluated over the weekend. If platelets continue to be stable or improved we will consider palliative paracentesis with interventional radiology. Patient will need anticoagulants held for 24 hours prior to procedure.
--- NOTE | 2016-12-08 20:08 | PN ---
DATE OF SERVICE: 12/08/2016 Ms. Multani is seen, evaluated, examined. She is 61 years old, very cachectic, malnourished, with severe degree of protein-calorie malnourishment; has chronic atrial fibrillation as well. Patient remains short of breath on activity and exertion. Her hemodynamic status is marginal but stable. Last set of vitals shows blood pressure 100/70, respiratory rate 13, pulse 89, temperature 97, saturation 98% on 2 L oxygen. HEENT EXAMINATION: Otherwise unremarkable. NECK: Supple. LUNGS: Bilateral good air entry but decreased air entry in the right base with dullness. HEART: Regular rate, rhythm. S1, S2 audible. ABDOMEN: Soft. NEUROLOGICAL EXAMINATION: Otherwise awake and alert. Chest x-ray revealed small to moderate right-sided and small left-sided pleural effusion, overall remaining stable. IMPRESSION: 1. Severe degree of protein-calorie malnourishment due to metastatic ovarian cancer. 2. Small to moderate bilateral pleural effusion, more so on the right side compared to the left side. 3. Post-chemotherapy severe pancytopenia. 4. Generalized weakness and medical debility. 5. Stage IV ovarian cancer with history of ascites in the past which was tapped at a tertiary care center. PLAN: To continue supportive care. Continue gentle rehydration. Optimize nutritional support. Maintain patient on Eliquis for atrial fibrillation. Continue breathing treatments, empiric antibiotics in the form of cefepime. Patient does have likely adrenal insufficiency. I will continue hydrocortisone for now; however in the next 24 to 48 hours start tapering it down. Will follow.
--- NOTE | 2016-12-08 22:34 | PN ---
DATE OF SERVICE: 12/08/2016 REASON FOR FOLLOWUP: Possible pneumonia and neutropenia. INTERVAL HISTORY: The patient is afebrile. She is breathing comfortably. Denies significant chest pain or cough. Mild shortness of breath. No significant abdominal pain. No nausea or vomiting. She did have some significant swelling of the lower extremity. On examination, blood pressure 101/71 with a pulse of 100, temperature 98. She is 97% on room air. General description is a middle-aged female up in the bed in no distress. RESPIRATORY SYSTEM: Unlabored breathing with decreased intensity of breath sounds. No wheeze. HEART: S1, S2. Regular rate and rhythm. ABDOMEN: Soft. No tenderness. EXTREMITIES: Four plus edema of the feet. No cellulitis. LABS: Hemoglobin 8.1 with a white count of 1.9 with a BUN of 8, creatinine 0.30. Culture remains negative. DIAGNOSTIC IMPRESSION AND PLAN: Patient admitted to hospital with systemic inflammatory response syndrome with significant hypertension in a patient who did have evidence of neutropenia from recent chemo. So far no clear-cut focus of infection. Culture negative. No fever. White count improved. Antibiotic can be safely discontinued. Continue supportive care. MTDD
[2016-12-09] MEDS: HYDROCORTISONE SUCCINATE 100 MG/2 ML VIAL IV SCH ×4 (00:49→23:03)
[2016-12-09] MEDS: SODIUM CHLORIDE 0.9% 1,000 ML IV SCH ×4 (00:51→14:53)
[2016-12-09 06:57] LABS: Anisocytosis Slight; CH 32.4; CHCM 33.4; HCT 23.7 % (34.0-46.0); HDW 3.54; HGB 7.9 gm/dL (11.4-16.0); Immature Gran Flag Moderate; MCH 32.5 pg (25.0-35.0); MCHC 33.4 g/dL (31.0-37.0); MCV 97.4 fL (80.0-100.0); Macrocytosis Slight; Mean Platelet Volume 8.6; Poikilocytosis Slight; RBC 2.44 m/uL (3.80-5.40); RDW 17.4 % (11.5-15.5); WBC 5.6 k/uL (3.8-10.6); WBC (Perox) 5.52
[2016-12-09 07:01] LABS: Anion Gap 2 mmol/L; Blood Urea Nitrogen 9 mg/dL (7-17); Calcium 7.3 mg/dL (8.4-10.2); Carbon Dioxide 27 mmol/L (22-30); Chloride 108 mmol/L (98-107); Glucose 90 mg/dL (74-99); Magnesium 1.8 mg/dL (1.6-2.3); Non-African American GFR(MDRD) >60 (>60 ml/min/1.73 sqM); Phosphorous 1.8 mg/dL (2.5-4.5); Potassium 3.5 mmol/L (3.5-5.1); Sodium 137 mmol/L (137-145)
[2016-12-09 07:16] LABS: Add Differential Manual Differential
[2016-12-09 07:20] LABS: Nucleated Red Blood Cells 0 /100 WBC (0-0); Total Cells Counted 100
[2016-12-09 07:21] LABS: Manual Review Performed
--- NOTE | 2016-12-09 07:22 | XR ---
EXAMINATION TYPE: XR chest 1V DATE OF EXAM: 12/09/2016 7:05 AM CLINICAL HISTORY: Difficulty breathing and pneumonia progress study. TECHNIQUE: Single AP portable upright view of the chest is obtained. COMPARISON: Chest x-ray from one day earlier FINDINGS: A left internal jugular Mediport catheter is stable in appearance. Cardiac silhouette size is stable and upper limits of normal with atherosclerotic thoracic aorta. There is chronic parenchym al change with small bilateral pleural effusions and associated right greater than left bibasilar ate lectasis and/or infiltrate. Upper lungs remain clear without pneumothorax. Osseous structures are dem ineralized. IMPRESSION: Overall stable findings, chronic parenchymal change with small to moderate-sized right greater than left pleural effusions and associated right greater than left bibasilar atelectasis and/ or infiltrate all redemonstrated
[2016-12-09] MEDS: FAMOTIDINE 20 MG TAB PO SCH ×2 (08:37→20:16)
[2016-12-09] MEDS: APIXABAN 5 MG TAB PO SCH ×2 (08:37→20:16)
[2016-12-09] MEDS: POTASSIUM CHLORIDE ER 20 MEQ TAB.ER PO SCH ×2 (08:38→20:17)
[2016-12-09] MEDS: IPRATROPIUM-ALBUTEROL 3 ML NEB INHALATION SCH ×3 (08:38→20:26)
[2016-12-09] MEDS: BUDESONIDE 0.5 MG/2 ML NEBU INHALATION SCH ×2 (08:38→20:27)
[2016-12-09] MEDS: HYDROmorphone 2 MG TAB PO PRN ×4 (08:49→23:03)
--- NOTE | 2016-12-09 09:48 | PN ---
DATE OF SERVICE: 12/08/2016 ICU TIME: 30 minutes. SUBJECTIVE: 61-year-old white female in ICU. She has been weaned off her norepinephrine. She remains on broad-spectrum antibiotics at this time for prevention pneumonia. Her severe pancytopenia is slowly improving. Her sats are improving. Her mental status is improving. CARDIOVASCULAR: S1, S2. LUNGS: Scattered wheeze. INTEGUMENT: Good. MUSCULOSKELETAL: Strength is fair. ASSESSMENT: 1. Generalized debility. 2. Altered mental status secondary to severe pancytopenia and chemotherapy. 3. Chemotherapy complications. 4. Severe dehydration. The patient is slowly improving. I do not see any clear source of infection at this time. The patient will probably be discharged home in next 24 to 48 hours. She will be sent out of the ICU. Her norepinephrine has been weaned. She is on no vasopressors or IV. Consults are reviewed.
[2016-12-09] MEDS: CEFEPIME 2 GM in SODIUM CHLORIDE 0.9% 50 ML IVPB SCH ×2 (10:04→20:16)
--- NOTE | 2016-12-09 12:16 | P.CRDCN ---
History of Present Illness Consult date: 12/09/16 History of present illness: This is a pleasant 61-year-old female patient with no significant cardiac history who was diagnosed recently with uterine and ovarian cancer and currently on chemotherapy, we were requested to see the patient for cardiac arrhythmia in the term of nonsustained VT. Initially the patient was admitted to the intensive care unit where she was hypotensive receiving vasopressors but after that she was weaned from vasopressors and she was transferred to the fifth floor. Beside that the patient has severe malnutrition. We get involved in the care of the patient because during her ICU admission she had an episode of sustained VT. She does not recall having any symptoms in terms off heart racing or fluttering or dizziness or lightheadedness or chest pain. 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 I could not find in the chart any indication of non-sustained VT. The EKG showed sinus rhythm with low voltage QRS. On physical examination the patient has severe bilateral lower extremities edema and edema of the abdominal wall. Past Medical History Past Medical History: Cancer, Deep Vein Thrombosis (DVT) Additional Past Medical History / Comment(s): hx breast CA 22 years ago, uterine CA 5 years ago, recent metastatic disease History of Any Multi-Drug Resistant Organisms: None Reported Past Surgical History: Bowel Resection, Hysterectomy Additional Past Surgical History / Comment(s): colostomy, right mastectomy Past Anesthesia/Blood Transfusion Reactions: No Reported Reaction Past Psychological History: No Psychological Hx Reported Smoking Status: Former smoker Past Alcohol Use History: None Reported Past Drug Use History: None Reported Medications and Allergies Home Medications Medication Instructions Recorded Confirmed Type Apixaban [Eliquis] 5 mg PO BID 12/04/16 12/04/16 History Docusate [Colace] 100 mg PO DAILY PRN 12/04/16 12/04/16 History HYDROmorphone [Dilaudid] 2 mg PO Q4H PRN 12/04/16 12/04/16 History Allergies Allergy/AdvReac Type Severity Reaction Status Date / Time No Known Allergies Allergy Verified 12/04/16 15:51 Physical Exam Vitals: Vital Signs Temp Pulse Pulse Resp BP BP Pulse Ox 12/09/16 07:00 98.1 F 94 20 114/71 96 12/08/16 23:46 97.9 F 97 16 119/78 93 L 12/08/16 17:30 100 23 101/71 97 12/08/16 17:00 89 13 99/70 98 12/08/16 16:30 102 H 15 115/69 98 12/08/16 16:00 102 H 20 114/77 99 12/08/16 15:30 102 H 37 H 105/75 99 12/08/16 15:00 109 H 16 119/75 98 12/08/16 14:30 100 32 H 104/70 96 12/08/16 14:00 107 H 23 114/75 81 L 12/08/16 13:30 108 H 34 H 104/70 92 L 12/08/16 13:00 95 25 H 101/67 93 L 12/08/16 12:30 104 H 19 129/84 93 L Intake and Output 12/08/16 12/09/16 12/09/16 22:59 06:59 14:59 Intake Total 300 850 Output Total 165 1000 Balance 135 -150 Intake: IV 50 Cefepime 2 gm In Sodium 50 Chloride 0.9% 50 ml @ 100 mls/hr IVPB Q12HR [facility] Rx #:[id number] Intake, IV Titration 300 800 Amount Sodium Chloride 0.9% 1, 300 800 000 ml @ 100 mls/hr IV . Q10H [facility] Rx#:[id number] Output: Urine 65 800 Stool 100 200 Other: Voiding Method Indwelling Catheter Indwelling Catheter - Constitutional General appearance: thin - Respiratory Respiratory: bilateral: diminished - Cardiovascular Rhythm: regular Results 12/09/16 06:25 12/09/16 06:25 CBC 12/09/16 Range/Units 06:25 WBC 5.6 (3.8-10.6) k/uL RBC 2.44 L (3.80-5.40) m/uL Hgb 7.9 L (11.4-16.0) gm/dL Hct 23.7 L (34.0-46.0) % Plt Count 58 L (150-450) k/uL Comprehensive Metabolic Panel 12/09/16 Range/Units 06:25 Sodium 137 (137-145) mmol/L Potassium 3.5 (3.5-5.1) mmol/L Chloride 108 H (98-107) mmol/L Carbon Dioxide 27 (22-30) mmol/L BUN 9 (7-17) mg/dL Creatinine 0.30 L (0.52-1.04) mg/dL Glucose 90 (74-99) mg/dL Calcium 7.3 L (8.4-10.2) mg/dL Current Medications Generic Name Dose Route Start Last Admin Trade Name Freq PRN Reason Stop Dose Admin Acetaminophen 650 mg 12/04/16 19:00 Tylenol Tab PO Q6HR PRN Mild Pain or Fever > 100.5 Albuterol/Ipratropium 3 ml 12/05/16 13:00 12/09/16 08:38 Duoneb 0.5 Mg-3 Mg/3 Ml Soln INHALATION Not Given RT-TID [facility] Apixaban 5 mg 12/07/16 09:00 12/09/16 08:37 Eliquis PO 5 mg BID [facility] Administration Budesonide 0.5 mg 12/05/16 20:00 12/09/16 08:38 Pulmicort INHALATION Not Given RT-BID [facility] Docusate Sodium 100 mg 12/04/16 19:03 Colace PO DAILY PRN Constipation Famotidine 20 mg 12/04/16 21:00 12/09/16 08:37 Pepcid PO 20 mg BID [facility] Administration Filgrastim 300 mcg 12/05/16 11:00 12/08/16 09:28 Zarxio SQ 300 mcg DAILY [facility] Administration Hydrocortisone Sodium Succinate 100 mg 12/05/16 00:00 12/09/16 08:37 Solu-Cortef IV 100 mg Q8HR [facility] Administration Hydromorphone HCl 4 mg 12/05/16 20:59 12/09/16 08:49 Dilaudid PO 4 mg Q4HR PRN Administration Pain Scale 6 to 10 Norepinephrine Bitartrate 4 mg in 250 mls @ 0 mls/hr 12/04/16 20:30 12/06/16 08:28 Levophed-0.9% Nacl 4 Mg/250ml Pmx IV Infused .Q0M [facility] Titration Protocol Titrate Cefepime HCl 2 gm/ Sodium 50 mls @ 100 mls/hr 12/05/16 09:00 12/09/16 10:04 Chloride IVPB 100 mls/hr Q12HR [facility] Administration Sodium Chloride 1,000 mls @ 100 mls/hr 12/05/16 22:00 12/09/16 00:51 Saline 0.9% IV 100 mls/hr .Q10H [facility] Administration Miscellaneous Information 1 each 12/06/16 21:29 Potassium Per Protocol MISCELLANE DAILY PRN Per Protocol Protocol Miscellaneous Information 1 each 12/07/16 06:25 Magnesium Per Protocol MISCELLANE DAILY PRN Per Protocol Protocol Naloxone HCl 0.2 mg 12/04/16 19:00 Narcan IV Q2M PRN Opioid Reversal Ondansetron HCl 4 mg 12/04/16 19:00 Zofran IVP Q8HR PRN Nausea And Vomiting Potassium Chloride 20 meq 12/05/16 09:00 12/09/16 08:38 K-Dur 20 PO 20 meq BID [facility] Administration Intake and Output 12/08/16 12/09/16 12/09/16 22:59 06:59 14:59 Intake Total 300 850 Output Total 165 1000 Balance 135 -150 Intake: IV 50 Cefepime 2 gm In Sodium 50 Chloride 0.9% 50 ml @ 100 mls/hr IVPB Q12HR [facility] Rx #:[id number] Intake, IV Titration 300 800 Amount Sodium Chloride 0.9% 1, 300 800 000 ml @ 100 mls/hr IV . Q10H [facility] Rx#:[id number] Output: Urine 65 800 Stool 100 200 Other: Voiding Method Indwelling Catheter Indwelling Catheter 12/09/16 06:25 12/09/16 06:25 Assessment and Plan Plan: assessment #1 uterine and ovarian cancer #2 malnutrition secondary to the above #3 cardiac arrhythmia in the term of nonsustained VT #4 severe bilateral lower extremities edema #5 history of DVT/PE Plan #1I will obtain an echocardiogram was Doppler #2 start the patient on some oral diuretics #3 replace electrolytes as needed #5 follow-up with the patient #6 if she has any more episodes of cardiac arrhythmia with consider starting her on AV shannan mj agents
[2016-12-09] MEDS: FILGRASTIM-SNDZ 300 MCG/0.5 ML SYRINGE SQ SCH (12:46)
--- NOTE | 2016-12-09 13:41 | P.PN ---
Subjective Principal diagnosis: Atrial fibrillation, septic shock Patient seen and examined covering for Dr. Bergman. The patient states that she is feeling pretty good today. She has no shortness of breath or cough. She denies any fevers or chills. She is going to have an echocardiogram today. Objective - Vital Signs Vital signs: Vital Signs Temp 98.1 F 12/09/16 07:00 Pulse 94 12/09/16 07:00 Resp 20 12/09/16 07:00 BP 114/71 12/09/16 07:00 Pulse Ox 96 12/09/16 07:00 Intake & Output 12/08/16 12/09/16 12/09/16 18:59 06:59 18:59 Intake Total 1100 850 Output Total 600 1000 Balance 500 -150 Weight 65.6 kg Intake: IV 50 Cefepime 2 gm In Sodium 50 Chloride 0.9% 50 ml @ 100 mls/hr IVPB Q12HR [facility] Rx #:[id number] Intake, IV Titration 1100 800 Amount Sodium Chloride 0.9% 1, 1100 800 000 ml @ 100 mls/hr IV . Q10H [facility] Rx#:[id number] Output: Urine 300 800 Stool 300 200 Other: Voiding Method Indwelling Catheter Indwelling Catheter # Voids 1 - Exam Gen.: Patient is alert and oriented 3, no acute distress, cachexia, chronically ill Cardiovascular: Irregular rate and rhythm, S1/S2 Lungs: Diminished at the bases otherwise clear Abdomen: Soft mildly distended, positive bowel sounds, nontender Extremities: + edema - Labs CBC & Chem 7: 12/09/16 06:25 12/09/16 06:25 Labs: Abnormal Lab Results - Last 24 Hours (Table) 12/09/16 12/09/16 Range/Units 06:25 06:25 RBC 2.44 L (3.80-5.40) m/uL Hgb 7.9 L (11.4-16.0) gm/dL Hct 23.7 L (34.0-46.0) % RDW 17.4 H (11.5-15.5) % Plt Count 58 L (150-450) k/uL Lymphocytes # (Manual) 0.2 L (1.0-4.8) k/uL Chloride 108 H (98-107) mmol/L Creatinine 0.30 L (0.52-1.04) mg/dL Calcium 7.3 L (8.4-10.2) mg/dL Phosphorus 1.8 L (2.5-4.5) mg/dL Assessment and Plan Plan: Shock now resolved Toxic metabolic encephalopathy, now resolved Severe protein calorie malnutrition Metastatic ovarian cancer NSVT Abdominal ascites Dehydration Bilateral pleural effusions, right greater than left Pancytopenia, due to chemotherapy Atrial fibrillation Anemia Hypophosphatemia Hx DVT/PE Gentle hydration Possible plan for paracentesis L [place] will need to be held if procedure planned Continue antibiotics Taper Cortef Pulmicort, Duonebs Decrease IVF to 60 cc/hr Echocardiogram pending Encourage enteral nutrition, consult dietitian Replace phosphorus Continue supportive care
--- NOTE | 2016-12-09 16:46 | ECHOF ---
Referral Reason:sob MEASUREMENTS -------- HEIGHT: 165.1 cm WEIGHT: 65.3 kg BP: IVSd: 1.1 cm (0.6 - 1.1) LVIDd: 4.1 cm (3.9 - 5.3) LVPWd: 1.1 cm (0.6 - 1.1) IVSs: 1.5 cm LVIDs: 2.9 cm LVPWs: 1.4 cm Ao Diam: 2.7 cm (2.0 - 3.7) AV Cusp: 1.8 cm (1.5 - 2.6) LA Diam: 3.3 cm (2.7 - 3.8) MV E Charles: 0.93 m/s MV DecT: 89 ms MV A Charles: 1.15 m/s MV E/A Ratio: 0.80 AR PHT: 431 ms RAP: 5.00 mmHg RVSP: 35.33 mmHg FINDINGS -------- Sinus rhythm. This was a technically good study. Left ventricular wall thickness is normal. Overall left ventricular systolic function is normal with, an EF between 55 - 60 %. The right ventricle is normal in size and function. The left atrium is normal in size. The right atrium is normal in size. Aortic valve is trileaflet and is mildly thickened. The mitral valve leaflets are mildly thickened. Moderate mitral regurgitation is present. Mild tricuspid regurgitation present. The right ventricular systolic pressure, as measured by Doppler, is 35.33mmHg. Pulmonic valve appears structurally normal. The aortic root size is normal. There is a small, generalized pericardial effusion present. Large Pleural Effusion. CONCLUSIONS -------- 1. Sinus rhythm. 2. Moderate mitral regurgitation is present. 3. Mild tricuspid regurgitation present. 4. The right ventricular systolic pressure, as measured by Doppler, is 35.33mmHg. 5. Pulmonic valve appears structurally normal. 6. The aortic root size is normal. 7. There is a small, generalized pericardial effusion present. 8. Large Pleural Effusion. 9. This was a technically good study. 10. Left ventricular wall thickness is normal. 11. Overall left ventricular systolic function is normal with, an EF between 55 - 60 %. 12. The right ventricle is normal in size and function. 13. The left atrium is normal in size. 14. The right atrium is normal in size. 15. Aortic valve is trileaflet and is mildly thickened. 16. The mitral valve leaflets are mildly thickened. ANODE REBUILDER: Dianna Jarvis RDCS
--- NOTE | 2016-12-09 17:07 | PN ---
SUBJECTIVE: [age]-old white female with atrial fibrillation who had a 12-beat run of ventricular tachycardia. Cardiology has seen the patient. Septic shock. No shortness of breath or cough. She is feeling stronger. She feels a little bit confused at this time. Temperature is 98.1. Pulse is 90s, respiratory rate 18 to 20, blood pressure 114/71, oxygen saturation 96% on room air. She is thin, cachectic. She has low protein levels. ASSESSMENT: 1. Septic shock, resolving. 2. Toxic metabolic encephalopathy, resolving. 3. Severe protein-calorie malnutrition. 4. Metastatic ovarian cancer. 5. Non-sustained ventricular tachycardia. 6. Abdominal ascites. 7. Dehydration. 8. Pleural effusions. 9. Pancytopenia. 10. Atrial fibrillation. 11. Anemia. 12. Hypophosphatemia. Paracentesis may be planned in the near future. Cardiology is monitoring the patient. Continue on Pulmicort, DuoNeb. Continue antibiotics. Dietitian consult. Replace phosphorus. Decrease IV fluids. Increase ambulation.
[2016-12-09] MEDS: POTAS-SOD-PHOS 278-164-250 MG 1 EACH PACKET PO SCH ×2 (18:04→20:16)
[2016-12-10 06:38] LABS: Anisocytosis Slight; CH 32.3; CHCM 33.1; HCT 23.6 % (34.0-46.0); HDW 3.56; Immature Gran Flag Slight; MCHC 33.8 g/dL (31.0-37.0); MCV 97.8 fL (80.0-100.0); Macrocytosis Slight; Mean Platelet Volume 8.4; Poikilocytosis Slight; RBC 2.41 m/uL (3.80-5.40); RDW 17.7 % (11.5-15.5); WBC 11.2 k/uL (3.8-10.6); WBC (Perox) 11.66
[2016-12-10 06:43] LABS: ALT 24 U/L (9-52); AST 13 U/L (14-36); Alkaline Phosphatase 84 U/L (38-126); Anion Gap 1 mmol/L; Blood Urea Nitrogen 10 mg/dL (7-17); Calcium 7.5 mg/dL (8.4-10.2); Carbon Dioxide 26 mmol/L (22-30); Chloride 109 mmol/L (98-107); Glucose 84 mg/dL (74-99); Non-African American GFR(MDRD) >60 (>60 ml/min/1.73 sqM); Potassium 3.4 mmol/L (3.5-5.1); Sodium 136 mmol/L (137-145); Total Bilirubin 0.3 mg/dL (0.2-1.3); Total Protein 4.2 g/dL (6.3-8.2)
[2016-12-10 07:18] LABS: Add Differential Manual Differential
[2016-12-10 07:21] LABS: Band Neutrophils % 3.5 %; Blast Cells 0.5; Manual Review Performed; Metamyelocytes % 0.5 %; Nucleated Red Blood Cells 0 /100 WBC (0-0); Total Cells Counted 200
[2016-12-10 07:22] LABS: Polychromasia Present
--- NOTE | 2016-12-10 08:20 | P.PN ---
Subjective Pt feels stronger overall. She is c/o recurrent abdominal distension Objective - Vital Signs Vital signs: Vital Signs Temp 98.1 F 12/10/16 07:00 Pulse 91 12/10/16 07:00 Resp 20 12/10/16 07:00 BP 108/69 12/10/16 07:00 Pulse Ox 89 L 12/10/16 07:00 Intake & Output 12/09/16 12/10/16 12/10/16 18:59 06:59 18:59 Intake Total 100 Output Total 400 700 Balance -400 -600 Weight 65.6 kg Intake: IV 100 Cefepime 2 gm In Sodium 100 Chloride 0.9% 50 ml @ 100 mls/hr IVPB Q12HR [facility] Rx #:[id number] Output: Urine 400 700 Other: Voiding Method Indwelling Catheter Indwelling Catheter # Voids 1 - Constitutional General appearance: Present: no acute distress - EENT Eyes: Present: EOMI, PERRLA ENT: Present: hearing grossly normal, normal oropharynx - Respiratory Respiratory: bilateral: CTA - Cardiovascular Rhythm: regular Heart sounds: normal: S1, S2 - Gastrointestinal Gastrointestinal Comment(s): +ve ascites General gastrointestinal: Present: distended - Integumentary Integumentary: Present: normal - Neurologic Neurologic: Present: CNII-XII intact - Musculoskeletal Musculoskeletal: Present: generalized weakness, strength equal bilaterally - Psychiatric Psychiatric: Present: A&O x's 3 - Labs CBC & Chem 7: 12/10/16 06:10 12/10/16 06:10 Labs: Abnormal Lab Results - Last 24 Hours (Table) 12/10/16 12/10/16 Range/Units 06:10 06:10 WBC 11.2 H (3.8-10.6) k/uL RBC 2.41 L (3.80-5.40) m/uL Hgb 8.0 L (11.4-16.0) gm/dL Hct 23.6 L (34.0-46.0) % RDW 17.7 H (11.5-15.5) % Plt Count 74 L (150-450) k/uL Neutrophils # (Manual) 9.9 H (1.3-7.7) k/uL Lymphocytes # (Manual) 0.3 L (1.0-4.8) k/uL Sodium 136 L (137-145) mmol/L Potassium 3.4 L (3.5-5.1) mmol/L Chloride 109 H (98-107) mmol/L Creatinine 0.30 L (0.52-1.04) mg/dL Calcium 7.5 L (8.4-10.2) mg/dL AST 13 L (14-36) U/L Total Protein 4.2 L (6.3-8.2) g/dL Albumin 1.8 L (3.5-5.0) g/dL Assessment and Plan (1) Pancytopenia due to chemotherapy Narrative/Plan: Counts have recovered significantly. Her WBC is normal. Filgrastim will be stopped. Plt are increasing and are now > 70K. Hgb is acceptable, with no transfusion required at this level Status: Acute (2) Pulmonary emboli Narrative/Plan: The pt is on Eliquis with good tolerance. Her PE is quite recent. Thus interruption of anticoagulation is not desirable, unless there is any absolute contraindication Status: Acute (3) Ascites Narrative/Plan: She has developed recurrent ascites. Paracentesis has been ordered. Her plt are adequate for the procedure. Re her anticoagulation, I will hold Eliquis tonight, and start her on IV heparin at 8 pm tonight. The IV heparin can be stopped 2-3 hrs prior to her paracentesis. After the procedure, she can be placed back on Eliquis Status: Acute
[2016-12-10] MEDS: APIXABAN 5 MG TAB PO SCH (08:23)
[2016-12-10] MEDS: CEFEPIME 2 GM in SODIUM CHLORIDE 0.9% 50 ML IVPB SCH ×2 (08:23→21:15)
[2016-12-10] MEDS: HYDROCORTISONE SUCCINATE 100 MG/2 ML VIAL IV SCH ×2 (08:23→15:38)
[2016-12-10] MEDS: POTASSIUM CHLORIDE ER 20 MEQ TAB.ER PO SCH ×2 (08:24→21:20)
[2016-12-10] MEDS: FAMOTIDINE 20 MG TAB PO SCH ×2 (08:24→21:20)
[2016-12-10] MEDS: POTAS-SOD-PHOS 278-164-250 MG 1 EACH PACKET PO SCH (08:24)
[2016-12-10] MEDS: FUROSEMIDE 20 MG TAB PO SCH (08:24)
[2016-12-10] MEDS: IPRATROPIUM-ALBUTEROL 3 ML NEB INHALATION SCH ×3 (08:45→20:27)
[2016-12-10] MEDS: BUDESONIDE 0.5 MG/2 ML NEBU INHALATION SCH ×2 (08:45→20:27)
--- NOTE | 2016-12-10 08:54 | P.PN ---
Progress Note - Text This is a pleasant 61-year-old female patient with no significant cardiac history who was diagnosed recently with uterine and ovarian cancer and currently on chemotherapy, we were requested to see the patient for cardiac arrhythmia in the term of nonsustained VT. Initially the patient was admitted to the intensive care unit where she was hypotensive receiving vasopressors but after that she was weaned from vasopressors and she was transferred to the fifth floor. Beside that the patient has severe malnutrition. We get involved in the care of the patient because during her ICU admission she had an episode of sustained VT. She does not recall having any symptoms in terms off heart racing or fluttering or dizziness or lightheadedness or chest pain. 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 I could not find in the chart any indication of non-sustained VT. The EKG showed sinus rhythm with low voltage QRS. On physical examination the patient has severe bilateral lower extremities edema and edema of the abdominal wall. I started the patient on Lasix by mouth. She underwent an echocardiogram which showed normal LV function was large left pleural effusion. From the cardiovascular standpoint of view, I will continue the current medical treatment. It is no need for any further cardiac workup. We'll follow-up with the patient on when necessary case.
[2016-12-10] MEDS: HYDROmorphone 2 MG TAB PO PRN ×2 (08:55→19:40)
--- NOTE | 2016-12-10 14:20 | PN ---
SUBJECTIVE: 61-year-old white female status post septic shock, severe pancytopenia, metabolic encephalopathy, status post chemotherapy with worsening abdominal distention. She was made ( ). She was given heparin and getting paracentesis done tomorrow. Overall she is feeling stronger. She is thin, cachectic. Very low BMI of 18. LUNGS: Mild wheeze. CARDIAC: S1, S2. ABDOMEN: Ascites with third spacing into her lower legs. ASSESSMENT: 1. Recurrent ovarian cancer, with ascites. 2. Severe protein calorie malnutrition. 3. Chronic obstructive pulmonary disease. 4. Toxic metabolic encephalopathy. 5. Severe anemia. 6. Leukocytosis. PLAN: Paracentesis in the morning. IV heparin until then. Stop Eliquis for now. Await paracentesis and possible discharge as she continues with PT, OT and get stronger.
[2016-12-10] MEDS ORDERED: HEPARIN SODIUM,PORCINE 5,000 UNIT/ML 1 ML VIAL IV PRN (18:19)
[2016-12-10] MEDS: HEPARIN SODIUM,PORCINE/D5W PMX 25,000 UNIT in DEXTROSE/WATER 1 500ML.BAG IV SCH (19:29)
[2016-12-10 20:00] LABS: INR 1.1 (<1.1); Partial Thromboplastin Time 24.6 sec (22.0-30.0); Prothrombin Time 11.1 sec (9.0-12.0)
[2016-12-10] MEDS: SODIUM CHLORIDE 0.9% 1,000 ML IV SCH (21:14)
[2016-12-11] MEDS: HYDROCORTISONE SUCCINATE 100 MG/2 ML VIAL IV SCH ×3 (00:09→16:48)
[2016-12-11] MEDS: SODIUM CHLORIDE 0.9% 1,000 ML IV SCH ×2 (00:12→12:22)
[2016-12-11] MEDS: HYDROmorphone 2 MG TAB PO PRN ×3 (06:02→20:07)
[2016-12-11 06:39] LABS: Anisocytosis Slight; Basophils # (A) 0.1 k/uL (0-0.2); Basophils % (A) 0 %; CH 32.1; CHCM 33.1; Eosinophils % (A) 0 %; HCT 24.9 % (34.0-46.0); HDW 3.56; HGB 8.3 gm/dL (11.4-16.0); Luc # (Auto) 0.25; Luc % (Auto) 2; Lymphocytes # (A) 0.2 k/uL (1.0-4.8); Lymphocytes % (A) 1 %; MCH 32.7 pg (25.0-35.0); MCHC 33.5 g/dL (31.0-37.0); MCV 97.5 fL (80.0-100.0); Macrocytosis Slight; Mean Platelet Volume 8.6; Monocytes # (A) 0.7 k/uL (0-1.0); Monocytes % (A) 4 %; Neutrophils # (A) 14.8 k/uL (1.3-7.7); Neutrophils % (A) 93 %; Poikilocytosis Slight; RBC 2.55 m/uL (3.80-5.40); RDW 17.3 % (11.5-15.5); WBC 15.9 k/uL (3.8-10.6); WBC (Perox) 16.34
[2016-12-11] MEDS: BUDESONIDE 0.5 MG/2 ML NEBU INHALATION SCH (07:02)
[2016-12-11] MEDS: IPRATROPIUM-ALBUTEROL 3 ML NEB INHALATION SCH (07:03)
[2016-12-11] MEDS: CEFEPIME 2 GM in SODIUM CHLORIDE 0.9% 50 ML IVPB SCH ×2 (09:53→20:09)
[2016-12-11] MEDS: FAMOTIDINE 20 MG TAB PO SCH ×2 (09:54→20:15)
[2016-12-11] MEDS: FUROSEMIDE 20 MG TAB PO SCH (09:55)
[2016-12-11] MEDS: POTASSIUM CHLORIDE ER 20 MEQ TAB.ER PO SCH ×2 (09:55→20:15)
[2016-12-11] MEDS ORDERED: IPRATROPIUM-ALBUTEROL 3 ML NEB INHALATION PRN (11:04)
--- NOTE | 2016-12-11 11:06 | P.PN ---
Subjective Principal diagnosis: Right pleural effusion Patient seen and examined. Patient states her breathing has been very good. She is hopeful for paracentesis today. She is asking if her breathing treatments can be changed to as needed. Objective - Vital Signs Vital signs: Vital Signs Temp 97.8 F 12/11/16 07:00 Pulse 109 H 12/11/16 07:00 Resp 18 12/11/16 07:00 BP 118/74 12/11/16 07:00 Pulse Ox 97 12/11/16 07:08 Intake & Output 12/10/16 12/11/16 12/11/16 18:59 06:59 18:59 Intake Total 723.166 177.469 Output Total 900 Balance -176.834 177.469 Intake: Intake, IV Titration 603.166 177.469 Amount Heparin Sodium,Porcine/ 123.166 177.469 D5w Pmx 25,000 unit In Dextrose/Water 1 500ml. bag @ 18 UNITS/KG/HR 23. 61 mls/hr IV .[id number] [facility] Rx#:[id number] Sodium Chloride 0.9% 1, 480 000 ml @ 60 mls/hr IV . [id number] [facility] Rx#:[id number] Oral 120 Output: Urine 650 Stool 250 Other: Voiding Method Indwelling Catheter Indwelling Catheter - Exam Gen.: Patient is alert and oriented 3, no acute distress, cachexia, chronically ill Cardiovascular: Irregular rate and rhythm, S1/S2 Lungs: Diminished at the bases otherwise clear Abdomen: Soft mildly distended, positive bowel sounds, nontender Extremities: + edema - Labs CBC & Chem 7: 12/11/16 06:10 12/10/16 06:10 Labs: Abnormal Lab Results - Last 24 Hours (Table) 12/11/16 12/11/16 12/11/16 Range/Units 00:10 06:10 06:10 WBC 15.9 H (3.8-10.6) k/uL RBC 2.55 L (3.80-5.40) m/uL Hgb 8.3 L (11.4-16.0) gm/dL Hct 24.9 L (34.0-46.0) % RDW 17.3 H (11.5-15.5) % Plt Count 97 L (150-450) k/uL Neutrophils # 14.8 H (1.3-7.7) k/uL Lymphocytes # 0.2 L (1.0-4.8) k/uL APTT 49.3 H 55.7 H (22.0-30.0) sec Assessment and Plan Plan: Shock now resolved Toxic metabolic encephalopathy, now resolved Severe protein calorie malnutrition Metastatic ovarian cancer NSVT Abdominal ascites Dehydration Bilateral pleural effusions, right greater than left Pancytopenia, due to chemotherapy Atrial fibrillation Anemia Hypophosphatemia Hx DVT/PE Gentle hydration Possible plan for paracentesis today Eliquis will need to be held if procedure planned Continue antibiotics Taper Cortef Pulmicort - discontinue, Duonebs - PRN IVF to 40 cc/hr Encourage enteral nutrition, consult dietitian Continue supportive care
[2016-12-11] MEDS: HEPARIN SODIUM,PORCINE/D5W PMX 25,000 UNIT in DEXTROSE/WATER 1 500ML.BAG IV SCH (20:05)
[2016-12-12] MEDS: HYDROCORTISONE SUCCINATE 100 MG/2 ML VIAL IV SCH ×4 (00:31→23:29)
[2016-12-12] MEDS: SODIUM CHLORIDE 0.9% 1,000 ML IV SCH ×2 (00:54→07:39)
[2016-12-12 06:50] LABS: Anisocytosis Slight; CH 32.5; Macrocytosis Slight; Poikilocytosis Slight; RDW 17.9 % (11.5-15.5)
[2016-12-12 07:00] LABS: CHCM 33.6; HCT 24.4 % (34.0-46.0); HDW 3.64; HGB 8.2 gm/dL (11.4-16.0); MCH 32.6 pg (25.0-35.0); MCHC 33.5 g/dL (31.0-37.0); MCV 97.3 fL (80.0-100.0); Mean Platelet Volume 8.7; RBC 2.51 m/uL (3.80-5.40); WBC 19.5 k/uL (3.8-10.6); WBC (Perox) 19.21
[2016-12-12 07:24] LABS: Add Differential Manual Differential
[2016-12-12 07:27] LABS: Manual Review Performed; Myelocytes % 1.5 %; Nucleated Red Blood Cells 0 /100 WBC (0-0); Total Cells Counted 200
[2016-12-12 07:28] LABS: Polychromasia Present
--- NOTE | 2016-12-12 07:37 | PN ---
DATE OF SERVICE: 12/11/2016 Reason for follow up is concern for infection and pneumonia. INTERVAL HISTORY: The patient is afebrile. She has been breathing comfortably. The patient did have some abdominal distention and is being worked up for ascites. The family was present at beside. They mentioned that patient did have paracentesis x2 with removal of 8 to 4 liters of fluid and culture at that time has been negative. The patient remains to be afebrile and hemodynamically stable. On examination, blood pressure 100/57 with a pulse of 110, temperature 98.9. She is 93% on room air. General description is a middle-age female lying in bed in no distress. RESPIRATORY SYSTEM: Unlabored breathing. Some decreased breath sounds in the base. HEART: S1, S2 regular rate and rhythm. ABDOMEN: Soft, slightly distended. EXTREMITIES: 4+ edema of feet. LABS: Hemoglobin 8.1, white count of 15.9 with a BUN of 10, creatinine 0.3. Cultures remained to be negative. DIAGNOSTIC IMPRESSION AND PLAN: Patient admitted to hospital with mental status changes, significant weakness and hypertension with neutropenia related to her chemo. So far no infectious etiology has been documented. All the cultures remain to be negative. Now with the ascites most likely seems to have underlying malignancy. At this time we will discontinue the cefepime and short course of oral Augmentin and watch her clinical course closely. Continue supportive care.
[2016-12-12] MEDS: HYDROmorphone 2 MG TAB PO PRN ×3 (07:38→22:05)
[2016-12-12] MEDS: FUROSEMIDE 20 MG TAB PO SCH (07:40)
[2016-12-12] MEDS: POTASSIUM CHLORIDE ER 20 MEQ TAB.ER PO SCH ×2 (07:40→21:28)
[2016-12-12] MEDS: FAMOTIDINE 20 MG TAB PO SCH ×2 (07:40→21:28)
[2016-12-12] MEDS ORDERED: RX INFO: IV CONTRAST WAS GIVEN 1 EACH MISC MISCELLANE PRN (08:19)
--- NOTE | 2016-12-12 08:35 | PN ---
SUBJECTIVE: A 61-year-old white female, states that her breathing is improving. She wants to get a paracentesis today, not sure because Eliquis was only discontinued 12 hours ago. Pulse is 109, temp 97.8, respirations 16 to 18, blood pressure is 118/74, O2 is 97% on room air. GI: Soft, nontender. ( ) Negative Patsy's White count is 15.9, hemoglobin is 8.3, platelets 77,000. Sodium 136, potassium 3.4. ASSESSMENT: 1. Septic shock, improved. 2. Toxic metabolic encephalopathy, improved. 3. Severe protein calorie malnutrition. 4. Metastatic ovarian cancer. 5. ( ) awaiting paracentesis. 6. Pancytopenia. 7. Atrial fibrillation. 8. Anemia. 9. Hypophosphatemia. 10. History of deep venous thrombosis, pulmonary embolism. Continue current treatments. Possible discharge home in the next 24 to 48 hours, if continues to improve.
--- NOTE | 2016-12-12 11:35 | P.PN ---
Subjective This is a 61-year-old female being evaluated and examined today on the fifth floor.. The patient came in to the emergency room for mental status changes. Patient was accompanied by her and son who stated that she could not get up this morning and was not being herself. Patient has been much less active, her intake has decreased and she has not been able to communicate with her family. The patient does have a history of ovarian cancel cancer and some possible abdominal metastasis per the family. She currently is being seen by, institute and each right those records are not readily available at this time. Patient states her last chemotherapy treatment was about 2 weeks ago. She denies having any fevers or any obvious signs of infection, however she has not able to provide much history. Her blood work showed pancytopenia as well as electrolyte abnormalities including hypokalemia. She was also dehydrated. The patient was started on IV fluids and her electrolytes were replaced. The patient does have a Mediport in place. Oncology was put on consult as well. Upon examination the patient is resting up in bed on room air with family at bedside. Patient does get short of breath with exertion however it has significantly improved. She was still continued to require breathing treatments as needed. She denies any cough or congestion at this time. She continues to appears very weak and cachectic. ultrasound of the abdomen showed ascites in all 4 quadrant, is scheduled to go for paracentesis today. Objective - Vital Signs Vital signs: Vital Signs Temp 97.8 F 12/12/16 07:00 Pulse 101 H 12/12/16 11:23 Resp 16 12/12/16 11:23 BP 105/67 12/12/16 11:23 Pulse Ox 91 L 12/12/16 11:23 Intake & Output 12/11/16 12/12/16 12/12/16 18:59 06:59 18:59 Intake Total 616.834 190 Output Total 2500 Balance -1883.166 190 Weight 65.6 kg Intake: IV 50 Cefepime 2 gm In Sodium 50 Chloride 0.9% 50 ml @ 100 mls/hr IVPB Q12HR [facility] Rx #:[id number] Intake, IV Titration 376.834 140 Amount Heparin Sodium,Porcine/ 376.834 D5w Pmx 25,000 unit In Dextrose/Water 1 500ml. bag @ 18 UNITS/KG/HR 23. 61 mls/hr IV .[id number] [facility] Rx#:[id number] Sodium Chloride 0.9% 1, 140 000 ml @ 40 mls/hr IV . Q24H [facility] Rx#:[id number] Oral 240 Output: Urine 2000 Stool 500 Other: Voiding Method Indwelling Catheter Indwelling Catheter # Voids 1 - Exam GENERAL EXAM: Alert, comfortable in no apparent distress. HEAD: Normocephalic. EYES: Normal reaction of pupils, equal size. NOSE: Clear with pink turbinates. THROAT: No erythema or exudates. NECK: No masses, no JVD. CHEST: No chest wall deformity. LUNGS: Equal air entry with no crackles, wheeze, rhonchi or dullness. Bases diminished CVS: S1 and S2 normal with no audible mumurs, irregular rhythm. ABDOMEN: No hepatosplenomegaly, normal bowel sounds, no guarding or rigidity. Mildly distended EXTREMITIES: +1-2 edema noted, pedal pulses palpable. SKIN: No rashes CENTRAL NERVOUS SYSTEM: No focal deficits, tone is weak in all 4 extremities. - Labs CBC & Chem 7: 12/12/16 06:24 12/10/16 06:10 Labs: Abnormal Lab Results - Last 24 Hours (Table) 12/12/16 12/12/16 Range/Units 06:24 06:24 WBC 19.5 H (3.8-10.6) k/uL RBC 2.51 L (3.80-5.40) m/uL Hgb 8.2 L (11.4-16.0) gm/dL Hct 24.4 L (34.0-46.0) % RDW 17.9 H (11.5-15.5) % Plt Count 109 L (150-450) k/uL Neutrophils # (Manual) 17.3 H (1.3-7.7) k/uL Lymphocytes # (Manual) 0.5 L (1.0-4.8) k/uL Monocytes # (Manual) 1.5 H (0-1.0) k/uL APTT 31.8 H (22.0-30.0) sec Assessment and Plan Plan: Assessment Small right pleural effusion Hypotension Pancytopenia due to chemotherapy Hypokalemia Dehydration Altered mental status Ovarian cancer, currently being treated at, [facility] in [place]. Severe protein-calorie malnutrition Toxic metabolic encephalopathy, now resolved Abdominal ascites Lab Medications have been reviewed and will be continued. We will add nebulizer treatments as needed to help with her shortness of breath. Electrolytes replaced per protocol. Patient to go for paracentesis today. Into new weaning of steroids. Appreciate input from oncology. Infectious disease also on consult. Dietitian on consult. GI and DVT prophylactics. We will continue to monitor her pleural effusions closely.. We will continue to monitor labs/ results and adjust treatment as necessary. I performed an examination of the patient and discussed their management with the nurse practitioner. I have reviewed the nurse practitioner's note and agree with the documented findings and plan of care.
--- NOTE | 2016-12-12 13:21 | US ---
EXAMINATION TYPE: US paracentesis abd w/image DATE OF EXAM: 12/12/2016 12:41 PM COMPARISON: NONE HISTORY: Ascites. PROCEDURE: Maximal barrier technique was utilized. The skin overlying a suitable pocket of fluid was localized with ultrasound and the overlying skin was prepped and draped. Ultrasound was utilized with sterile technique. Lidocaine was used for local anesthesia and a skin mirian made with a scalpel. Catheter was advanced under direct ultrasound guidance into a suitable pocket of fluid and approximately 3.8 liter s of serous fluid were removed. Catheter was withdrawn and hemostasis achieved. There is no immedia te complication; the patient is discharged in stable condition. IMPRESSION: STATUS POST ULTRASOUND GUIDED PARACENTESIS FOR PALLIATION OF ASCITES. THIS PROCEDURE WA S PERFORMED BY THE UNDERSIGNED. Specimen sent for laboratory analysis.
[2016-12-12] MEDS: IOHEXOL 350 MG/ML 25 ML BOTTLE (ORAL USE) PO PRN ×2 (14:25→15:00)
--- NOTE | 2016-12-12 15:59 | P.PN ---
Subjective 61-year-old female being seen with the attending this morning. Evaluated and examined. Currently sitting up in bed appears in no acute distress. The plan is for the patient undergo a paracentesis today followed by a CAT scan of the abdomen pelvis patient aware the plan of care Objective - Vital Signs Vital signs: Vital Signs Temp 97.8 F 12/12/16 07:00 Pulse 111 H 12/12/16 14:15 Resp 16 12/12/16 14:15 BP 107/72 12/12/16 14:15 Pulse Ox 90 L 12/12/16 14:15 Intake & Output 12/11/16 12/12/16 12/12/16 18:59 06:59 18:59 Intake Total 616.834 190 Output Total 2500 Balance -1883.166 190 Weight 65.6 kg Intake: IV 50 Cefepime 2 gm In Sodium 50 Chloride 0.9% 50 ml @ 100 mls/hr IVPB Q12HR [facility] Rx #:[id number] Intake, IV Titration 376.834 140 Amount Heparin Sodium,Porcine/ 376.834 D5w Pmx 25,000 unit In Dextrose/Water 1 500ml. bag @ 18 UNITS/KG/HR 23. 61 mls/hr IV .[id number] [facility] Rx#:[id number] Sodium Chloride 0.9% 1, 140 000 ml @ 40 mls/hr IV . Q24H [facility] Rx#:[id number] Oral 240 Output: Urine 2000 Stool 500 Other: Voiding Method Indwelling Catheter Indwelling Catheter # Voids 1 - Exam Physical exam 61-year-old female thin cachectic in appearance sitting up in a chair.. Patient reports poor appetite this morning. Patient currently is being followed by oncology and pulmonary service Lungs diminished at the bases Heart S1-S2 audible regular Abdomen distended firm Extremities decrease edema to the lower extreme - Labs CBC & Chem 7: 12/12/16 06:24 12/10/16 06:10 Labs: Abnormal Lab Results - Last 24 Hours (Table) 12/12/16 12/12/16 Range/Units 06:24 06:24 WBC 19.5 H (3.8-10.6) k/uL RBC 2.51 L (3.80-5.40) m/uL Hgb 8.2 L (11.4-16.0) gm/dL Hct 24.4 L (34.0-46.0) % RDW 17.9 H (11.5-15.5) % Plt Count 109 L (150-450) k/uL Neutrophils # (Manual) 17.3 H (1.3-7.7) k/uL Lymphocytes # (Manual) 0.5 L (1.0-4.8) k/uL Monocytes # (Manual) 1.5 H (0-1.0) k/uL APTT 31.8 H (22.0-30.0) sec Assessment and Plan Plan: Impression Present on admission Severe protein calorie malnutrition suspect due to poor caloric intake and ovarian cancer Toxic metabolic encephalopathy present on admission now resolved Recent diagnosis of uterine and Ovarian cancer currently being treated at [facility] Pancytopenia due to chemotherapy Hypo-tension Small right pleural effusion Present on admission clinical dehydration Present on admission abdominal ascites likely due to ovarian cancer Present on admission isolated one episode cardiac arrhythmia nonsustained V. tach resolved Present on admission hypotensive necessitating ICU admission received vasopressors resolved A recent diagnosis of pulmonary emboli on [facility] Recurrent ascites Bilateral pleural effusions right greater than the left Metastatic ovarian cancer Metastatic adenocarcinoma of ovary Plan Patient scheduled for a paracentesis today will await follow-up Continue current plan of care Continue recommendations from consulting physicians reviewed and recognized appreciated DVT and her prophylaxis Nutritional support equist will be restarted when appropriateT he above dictated assessment and findings were discussed with dr schwab . Impression and the plan of care have been dictated as directed. Christine Graves nurse practitioner acting as a scribe for dr schwab
--- NOTE | 2016-12-12 16:59 | CT ---
EXAMINATION TYPE: CT abdomen pelvis w con DATE OF EXAM: 12/12/2016 4:24 PM COMPARISON: NONE HISTORY: 61 year-old female history of uterine and breast CA. TECHNIQUE: Contiguous axial scanning of the abdomen and pelvis following administration of 100 ml Omn ipaque 300 IV contrast. Delayed images through the kidneys and coronal/sagittal reconstructions perf ormed. CT DLP: 1017.1 mGycm Automated exposure control for dose reduction was used. FINDINGS: There is severe diffuse anasarca-type change with confluent edema throughout the subcutaneous tissues and intra-abdominal fat. Partially visualized right breast prosthesis. Small to moderate pleural effusions are present with prominent right greater than left basilar lower lobe atelectasis. There is some groundglass within the left lower lobe also noted and some possible c onsolidation in the right middle lobe. Subcentimeter hypodensity posterior right hepatic lobe too small for accurate CT characterization, pr obable cyst. Portal venous system appears patent. No biliary ductal dilatation. Mild gallbladder wall thickening without abnormal distention likely secondary to fluid overload state . Adrenal glands, left kidney, spleen, atrophic pancreas show no gross abnormality. There is mild to moderate right-sided hydronephrosis. Small fat-containing ventral abdominal wall hernia. There is diffuse small bowel wall thickening. Left lower quadrant colostomy with moderate stool burden. No abnormal bowel dilatation. Areas of diffuse colonic wall thickening such as involving the excluded sigmoid colon and portions of the transverse colon, for example, axial image 32. Unable to exclude a mesenteric mass measuring 3.9 cm, axial image 28 just adjacent. Moderate atrophy scattered calcifications throughout the abdominal aorta and iliac arteries without a neurysm. Regalado catheter is present. Bladder is incompletely decompressed with a nondependent air likely relati ng to instrumentation. There is fluid seen within the distal rectum/anus and some peritoneal air likely within the vagina. U nable to delineate pelvic structures due to the intense edema. Bones: Degenerative changes lumbar spine. No osseous destructive process. IMPRESSION: 1. SEVERE DIFFUSE ANASARCA-TYPE CHANGE. THE DEGREE OF BODY EDEMA IS SURPRISING. SMALL TO MODERATE PLE URAL EFFUSIONS WITH ADJACENT ATELECTASIS. CORRELATE WITH PATIENT'S FLUID STATUS. 2. SOME POSSIBLE CONSOLIDATION IN THE RIGHT MIDDLE LOBE AND SOME GROUNDGLASS IN THE LEFT LOWER LOBE F INDINGS COULD REPRESENT INFECTIOUS INFILTRATES OR EARLY EDEMA. 3. MILD TO MODERATE RIGHT-SIDED HYDRONEPHROSIS. UNABLE TO ADEQUATELY DELINEATE THE COURSE OF THE RIGH T URETER OR PELVIC STRUCTURES SECONDARY TO THE EXTENT OF EDEMA. 4. SMALL BOWEL WALL THICKENING AND SEGMENTS OF COLONIC WALL THICKENING WELL. THIS MAY RELATE TO IN TRAMURAL EDEMA. ENTEROCOLITIS CONSIDERED LESS LIKELY GIVEN SOLID STOOL IN THE COLON. THERE IS A LEFT SIDED COLOSTOMY. 5. POSSIBLE 3.9 CM CENTRAL MESENTERIC MASS.
--- NOTE | 2016-12-12 22:34 | PN ---
DATE OF SERVICE: 12/12/2016 Reason for follow-up: Possible infection and possible sepsis. INTERVAL HISTORY: The patient is afebrile. The patient is status post paracentesis with removal of 3.8 L of fluid. Fluid has been sent for cytology in addition to the culture. Patient abdominal distention has decreased. The patient denies significant chest pain. No significant diarrhea. On examination, blood pressure is 107/72 with a pulse 111, temperature 98, she is 99% on room air. General description is a middle-age female up in the bed in no distress. RESPIRATORY SYSTEM: Unlabored breathing with decreased breath sounds at the base. HEART: S1, S2 regular rate and rhythm. ABDOMEN: Soft, less distended. EXTREMITIES: 3+ edema of the feet. LABS: Hemoglobin 8.4, white count 98.5. BUN of 10, creatinine 0.30. The patient did have CT of the abdomen and pelvis, which did show diffuse anasarca, possible consolidation right middle lobe, hydronephrosis. DIAGNOSTIC IMPRESSION AND PLAN: Patient admitted to hospital with neutropenia significant weakness with concern for possible infectious etiology. So far all the cultures are negative. The patient is currently breathing comfortably on room air. Denies significant cough or sputum production making pneumonia to be less likely. Some of the abnormality seen on CT could be related to the fluid. We will continue to monitor closely. The patient off antibiotic therapy. If the patient spikes any fever and/or change in condition, will reculture and start on appropriate antibiotics. Family present at the bedside. All their questions were answered. MARU
[2016-12-13] MEDS: SODIUM CHLORIDE 0.9% 1,000 ML IV SCH ×5 (08:59→13:00)
[2016-12-13] MEDS ORDERED: APIXABAN 5 MG TAB PO SCH (09:00)
[2016-12-13 10:03] LABS: ALT 20 U/L (9-52); AST 15 U/L (14-36); Alkaline Phosphatase 111 U/L (38-126); Anion Gap 2 mmol/L; Blood Urea Nitrogen 9 mg/dL (7-17); Calcium 6.9 mg/dL (8.4-10.2); Carbon Dioxide 32 mmol/L (22-30); Chloride 103 mmol/L (98-107); Glucose 89 mg/dL (74-99); Non-African American GFR(MDRD) >60 (>60 ml/min/1.73 sqM); Sodium 137 mmol/L (137-145); Total Bilirubin 0.3 mg/dL (0.2-1.3); Total Protein 4.1 g/dL (6.3-8.2)
[2016-12-13 10:06] LABS: Potassium 2.3 mmol/L (3.5-5.1)
[2016-12-13] MEDS: HYDROmorphone 2 MG TAB PO PRN ×2 (11:27→21:46)
[2016-12-13] MEDS: FAMOTIDINE 20 MG TAB PO SCH ×2 (11:27→21:44)
[2016-12-13] MEDS: FUROSEMIDE 20 MG TAB PO SCH (11:27)
[2016-12-13] MEDS: POTASSIUM CHLORIDE ER 20 MEQ TAB.ER PO SCH ×2 (11:29→21:44)
[2016-12-13] MEDS: HYDROCORTISONE SUCCINATE 100 MG/2 ML VIAL IV SCH ×2 (11:29→16:22)
[2016-12-13] MEDS: POTASSIUM CHLORIDE 10 MEQ, LIDOCAINE 2% INJ 10 MG in SODIUM CHLORIDE 0.9% 100 ML IVPB SCH ×4 (11:33→16:20)
--- NOTE | 2016-12-13 14:40 | PN ---
DATE OF SERVICE: 12/13/2016 Reason for followup is abnormal CT with a question of pneumonia. INTERVAL HISTORY: The patient is afebrile. She is breathing comfortably. Patient denies any significant cough or any sputum production. Still complaining of sporadic abdominal distention and No more fluid was taken off. On examination, her blood pressure is 108/73 with a pulse of 107, temperature is 97.4, she is 95% on the room air. General description is a middle-age female, up in the bed in no distress. RESPIRATORY SYSTEM: Unlabored breathing. Some decreased breath sounds at the base. HEART: S1, S2 with regular rate and rhythm. ABDOMEN: Soft, slightly distended, no guarding or rigidity. EXTREMITIES: 3+ edema of the feet. LABS: No new labs have been obtained today except the BUN of 9, creatinine of 0.82, potassium was 2.3. Blood culture has been negative. DIAGNOSTIC IMPRESSION AND PLAN: Patient admitted to hospital with weakness, lethargy, with significant neutropenia from chemotherapy. The patient now did have generalized anasarca with significant ascites, lower extremity edema and possible fluid in the lungs, though CT was reported as possible pneumonia, though clinically she is not behaving as such. P.o. Augmentin has been added and the patient prior to that has received about 8 days of broad spectrum antibiotic therapy. Will try to obtain a sputum, though clinical suspicion remains to be low for pneumonia. Plan of care discussed in detail with the [facility] Assistant who was present at bedside. Their questions were answered. MARU
--- NOTE | 2016-12-13 15:08 | P.PN ---
Subjective This is a 61-year-old female being evaluated and examined today on the fifth floor.. The patient came in to the emergency room for mental status changes. Patient was accompanied by her and son who stated that she could not get up this morning and was not being herself. Patient has been much less active, her intake has decreased and she has not been able to communicate with her family. The patient does have a history of ovarian cancel cancer and some possible abdominal metastasis per the family. She currently is being seen by, institute and each right those records are not readily available at this time. Patient states her last chemotherapy treatment was about 2 weeks ago. She denies having any fevers or any obvious signs of infection, however she has not able to provide much history. Her blood work showed pancytopenia as well as electrolyte abnormalities including hypokalemia. She was also dehydrated. The patient was started on IV fluids and her electrolytes were replaced. The patient does have a Mediport in place. Oncology was put on consult as well. Upon examination the patient is resting up in bed on room air with family at bedside. Patient does get short of breath with exertion however it has significantly improved. She was still continued to require breathing treatments as needed. She denies any cough or congestion at this time. She continues to appears very weak and cachectic. ultrasound of the abdomen showed ascites in all 4 quadrant, patient went for paracentesis yesterday, 3.8 L of serous fluid was removed. Agent states that she feels that are not enough fluid was removed and she is just not feeling right today. She states her abdomen feels like nothing was removed yesterday. She also feels that her swelling in the legs have gone back up in the last 24 hours. Objective - Vital Signs Vital signs: Vital Signs Temp 98 F 12/13/16 14:55 Pulse 101 H 12/13/16 14:55 Resp 22 12/13/16 14:55 BP 111/78 12/13/16 14:55 Pulse Ox 95 12/13/16 14:55 Intake & Output 12/12/16 12/13/16 12/13/16 18:59 06:59 18:59 Intake Total 480 890 Output Total 3000 Balance -2520 890 Weight 65.6 kg Intake: Intake, IV Titration 640 Amount Sodium Chloride 0.9% 1, 640 000 ml @ 40 mls/hr IV . Q24H [facility] Rx#:[id number] Oral 480 250 Output: Urine 2250 Uretheral (Regalado) 750 Stool 750 Other: Voiding Method Indwelling Catheter Indwelling Catheter # Voids 1 - Exam GENERAL EXAM: Alert, comfortable in no apparent distress. HEAD: Normocephalic. EYES: Normal reaction of pupils, equal size. NOSE: Clear with pink turbinates. THROAT: No erythema or exudates. NECK: No masses, no JVD. CHEST: No chest wall deformity. LUNGS: Equal air entry with no crackles, wheeze, rhonchi or dullness. Bases diminished CVS: S1 and S2 normal with no audible mumurs, irregular rhythm. ABDOMEN: No hepatosplenomegaly, normal bowel sounds, no guarding or rigidity. Mildly distended EXTREMITIES: +2 edema noted, pedal pulses palpable. SKIN: No rashes CENTRAL NERVOUS SYSTEM: No focal deficits, tone is weak in all 4 extremities. - Labs CBC & Chem 7: 12/12/16 06:24 12/13/16 09:37 Labs: Abnormal Lab Results - Last 24 Hours (Table) 12/13/16 Range/Units 09:37 Potassium 2.3 L* (3.5-5.1) mmol/L Carbon Dioxide 32 H (22-30) mmol/L Creatinine 0.32 L (0.52-1.04) mg/dL Calcium 6.9 L (8.4-10.2) mg/dL Total Protein 4.1 L (6.3-8.2) g/dL Albumin 1.8 L (3.5-5.0) g/dL Assessment and Plan Plan: Assessment Small right pleural effusion Hypotension Pancytopenia due to chemotherapy Hypokalemia Dehydration Altered mental status Ovarian cancer, currently being treated at, [facility] in [place]. Severe protein-calorie malnutrition Toxic metabolic encephalopathy, now resolved Abdominal ascites Lab Medications have been reviewed and will be continued. We will add nebulizer treatments as needed to help with her shortness of breath. Electrolytes replaced per protocol. Paracentesis specimen results pending. Appreciate input from oncology. Infectious disease also on consult. Dietitian on consult. GI and DVT prophylactics. We will continue to monitor her pleural effusions closely. Repeat chest x-ray tomorrow. We will continue to monitor labs/results and adjust treatment as necessary. I performed an examination of the patient and discussed their management with the nurse practitioner. I have reviewed the nurse practitioner's note and agree with the documented findings and plan of care.
--- NOTE | 2016-12-13 17:36 | P.PN ---
Subjective 61-year-old female being seen with the attending this morning. Evaluated and examined. Currently sitting up in bed appears in no acute distress. The plan is for the patient undergo a paracentesis yesterday with 3.5 L obtained followed by a CAT scan of the abdomen pelvis reviewed patient continues to report feeling short of breath with abdominal bloating. Patient states that she does not feel like an ounce fluid was removed. Continues to have swelling in the bilateral legs which has increased from prior assessment Objective - Vital Signs Vital signs: Vital Signs Temp 98 F 12/13/16 14:55 Pulse 101 H 12/13/16 14:55 Resp 18 12/13/16 16:00 BP 111/78 12/13/16 14:55 Pulse Ox 95 12/13/16 14:55 Intake & Output 12/12/16 12/13/16 12/13/16 18:59 06:59 18:59 Intake Total 480 890 200 Output Total 3000 Balance -2520 890 200 Weight 65.6 kg Intake: Intake, IV Titration 640 200 Amount Potassium Chloride 10 meq 200 Lidocaine 2% Inj 10 mg In Sodium Chloride 0.9% 100 ml @ 100 mls/hr IVPB Q1HR [facility] Rx#:[id number] Sodium Chloride 0.9% 1, 640 000 ml @ 40 mls/hr IV . Q24H [facility] Rx#:[id number] Oral 480 250 Output: Urine 2250 Uretheral (Regalado) 750 Stool 750 Other: Voiding Method Indwelling Catheter Indwelling Catheter Indwelling Catheter # Voids 1 - Exam Physical exam 61-year-old female thin cachectic in appearance sitting up in a chair.. Patient reports poor appetite this morning. Patient currently is being followed by oncology and pulmonary service Lungs diminished at the bases Heart S1-S2 audible regular Abdomen distended firm Extremities increased edema to the lower extremities - Labs CBC & Chem 7: 12/12/16 06:24 12/13/16 09:37 Labs: Abnormal Lab Results - Last 24 Hours (Table) 12/13/16 Range/Units 09:37 Potassium 2.3 L* (3.5-5.1) mmol/L Carbon Dioxide 32 H (22-30) mmol/L Creatinine 0.32 L (0.52-1.04) mg/dL Calcium 6.9 L (8.4-10.2) mg/dL Total Protein 4.1 L (6.3-8.2) g/dL Albumin 1.8 L (3.5-5.0) g/dL Microbiology - Last 24 Hours (Table) 12/12/16 10:50 Body Fluid Culture - Preliminary Ascites Fluid Assessment and Plan Plan: Impression Present on admission Severe protein calorie malnutrition suspect due to poor caloric intake and ovarian cancer Toxic metabolic encephalopathy present on admission now resolved Recent diagnosis of uterine and Ovarian cancer currently being treated at [facility] Pancytopenia due to chemotherapy Hypo-tension Small right pleural effusion Present on admission clinical dehydration Present on admission abdominal ascites likely due to ovarian cancer Present on admission isolated one episode cardiac arrhythmia nonsustained V. tach resolved Present on admission hypotensive necessitating ICU admission received vasopressors resolved A recent diagnosis of pulmonary emboli on [facility] Recurrent ascites Bilateral pleural effusions right greater than the left Metastatic ovarian cancer Metastatic adenocarcinoma of ovary Status status post paracentesis a second 3.8 L removed Plan Continue current plan of care Continue recommendations from consulting physicians reviewed and recognized appreciated DVT and her prophylaxis Nutritional support equist will be restarted when appropriateT he above dictated assessment and findings were discussed with dr schwab . Impression and the plan of care have been dictated as directed. Christine Graves nurse practitioner acting as a scribe for dr schwab
[2016-12-13] MEDS ORDERED: Potassium Replacement Protocol 1 EACH MISC MISCELLANE PRN (20:43)
[2016-12-13] MEDS ORDERED: POTASSIUM CHLORIDE 20 MEQ in WATER FOR INJECTION 2 100ML.BAG IVPB ONE (20:43)
[2016-12-13] MEDS: SODIUM CHLORIDE 0.9% 1,000 ML with POTASSIUM CHLORIDE 30 MEQ IV SCH ×2 (21:43)
[2016-12-13] MEDS: POTASSIUM CHLORIDE 20 MEQ in WATER FOR INJECTION 1 100ML.BAG IVPB SCH (21:43)
[2016-12-13] MEDS: AMOXIC-POT CLAV 875-125MG 1 EACH TAB PO SCH (21:45)
[2016-12-14] MEDS: POTASSIUM CHLORIDE 20 MEQ in WATER FOR INJECTION 1 100ML.BAG IVPB SCH ×3 (01:17→16:27)
[2016-12-14] MEDS: HYDROCORTISONE SUCCINATE 100 MG/2 ML VIAL IV SCH ×4 (01:17→23:39)
[2016-12-14 06:46] LABS: ALT 24 U/L (9-52); AST 16 U/L (14-36); Alkaline Phosphatase 109 U/L (38-126); Anion Gap 2 mmol/L; Blood Urea Nitrogen 8 mg/dL (7-17); Calcium 6.7 mg/dL (8.4-10.2); Carbon Dioxide 31 mmol/L (22-30); Chloride 103 mmol/L (98-107); Glucose 91 mg/dL (74-99); Non-African American GFR(MDRD) >60 (>60 ml/min/1.73 sqM); Sodium 136 mmol/L (137-145); Total Bilirubin 0.3 mg/dL (0.2-1.3); Total Protein 4.1 g/dL (6.3-8.2)
[2016-12-14 06:57] LABS: Potassium 2.9 mmol/L (3.5-5.1)
[2016-12-14] MEDS: AMOXIC-POT CLAV 875-125MG 1 EACH TAB PO SCH ×2 (10:09→20:40)
[2016-12-14] MEDS: FAMOTIDINE 20 MG TAB PO SCH ×2 (10:10→20:40)
[2016-12-14] MEDS: FUROSEMIDE 10 MG/ML 2 ML VIAL IV SCH ×2 (10:10→20:40)
[2016-12-14] MEDS: POTASSIUM CHLORIDE ER 20 MEQ TAB.ER PO SCH (10:11)
[2016-12-14] MEDS: HEPARIN SODIUM,PORCINE 5,000 UNIT/ML 1 ML VIAL SQ SCH ×3 (10:11→23:39)
[2016-12-14] MEDS: HYDROmorphone 2 MG TAB PO PRN (10:12)
--- NOTE | 2016-12-14 13:23 | P.PN ---
Subjective This is a 61-year-old female being evaluated and examined today on the fifth floor.. The patient came in to the emergency room for mental status changes. Patient was accompanied by her and son who stated that she could not get up this morning and was not being herself. Patient has been much less active, her intake has decreased and she has not been able to communicate with her family. The patient does have a history of ovarian cancel cancer and some possible abdominal metastasis per the family. She currently is being seen by, institute and each right those records are not readily available at this time. Patient states her last chemotherapy treatment was about 2 weeks ago. She denies having any fevers or any obvious signs of infection, however she has not able to provide much history. Her blood work showed pancytopenia as well as electrolyte abnormalities including hypokalemia. She was also dehydrated. The patient was started on IV fluids and her electrolytes were replaced. The patient does have a Mediport in place. Oncology was put on consult as well. Upon examination the patient is resting up in bed on room air with family at bedside. Patient does get short of breath with exertion however it has significantly improved. She was still continued to require breathing treatments as needed. She denies any cough or congestion at this time. She continues to appears very weak and cachectic. ultrasound of the abdomen showed ascites in all 4 quadrant, patient went for paracentesis, 3.8 L of serous fluid was removed. Patient is scheduled to go for another paracentesis tomorrow. She states she continues to feel full of fluid in her abdomen and throughout her entire legs. Swelling continues to remain the same today as yesterday. Objective - Vital Signs Vital signs: Vital Signs Temp 97.1 F L 12/14/16 07:00 Pulse 95 12/14/16 07:00 Resp 20 12/14/16 07:00 BP 116/73 12/14/16 07:00 Pulse Ox 95 12/14/16 07:00 Intake & Output 12/13/16 12/14/16 12/14/16 18:59 06:59 18:59 Intake Total 200 320 Output Total 800 1000 100 Balance -600 -680 -100 Weight 65.6 kg Intake: Intake, IV Titration 200 320 Amount Potassium Chloride 10 meq 200 Lidocaine 2% Inj 10 mg In Sodium Chloride 0.9% 100 ml @ 100 mls/hr IVPB Q1HR [facility] Rx#:[id number] Sodium Chloride 0.9% 1, 320 000 ml @ 40 mls/hr IV . Q24H [facility] with Potassium Chloride 30 meq Rx#: [id number] Output: Urine 800 900 Uretheral (Regalado) 900 Stool 100 100 Other: Voiding Method Indwelling Catheter Indwelling Catheter Indwelling Catheter - Exam GENERAL EXAM: Alert, comfortable in no apparent distress. HEAD: Normocephalic. EYES: Normal reaction of pupils, equal size. NOSE: Clear with pink turbinates. THROAT: No erythema or exudates. NECK: No masses, no JVD. CHEST: No chest wall deformity. LUNGS: Equal air entry with no crackles, wheeze, rhonchi or dullness. Bases diminished CVS: S1 and S2 normal with no audible mumurs, irregular rhythm. ABDOMEN: No hepatosplenomegaly, normal bowel sounds, no guarding or rigidity. Mildly distended EXTREMITIES: +2 edema noted, pedal pulses palpable. SKIN: No rashes CENTRAL NERVOUS SYSTEM: No focal deficits, tone is weak in all 4 extremities. - Labs CBC & Chem 7: 12/12/16 06:24 12/14/16 06:15 Labs: Abnormal Lab Results - Last 24 Hours (Table) 12/13/16 12/14/16 Range/Units 19:45 06:15 Sodium 136 L (137-145) mmol/L Potassium 2.6 L* 2.9 L* (3.5-5.1) mmol/L Carbon Dioxide 31 H (22-30) mmol/L Creatinine 0.29 L (0.52-1.04) mg/dL Calcium 6.7 L (8.4-10.2) mg/dL Total Protein 4.1 L (6.3-8.2) g/dL Albumin 1.8 L (3.5-5.0) g/dL Microbiology - Last 24 Hours (Table) 12/12/16 10:50 Gram Stain - Preliminary Ascites Fluid Body Fluid Culture - Preliminary Assessment and Plan Plan: Assessment Small right pleural effusion Hypotension Pancytopenia due to chemotherapy Hypokalemia Dehydration Altered mental status Ovarian cancer, currently being treated at, [facility] in [place]. Severe protein-calorie malnutrition Toxic metabolic encephalopathy, now resolved Abdominal ascites Lab Medications have been reviewed and will be continued. We will add nebulizer treatments as needed to help with her shortness of breath. Electrolytes replaced per protocol. Paracentesis specimen results pending. She is scheduled for paracentesis tomorrow. Appreciate input from oncology. Infectious disease also on consult. Dietitian on consult. GI and DVT prophylactics. We will continue to monitor her pleural effusions closely. Patient will be started on TPN as well. We will continue to monitor labs/ results and adjust treatment as necessary. I performed an examination of the patient and discussed their management with the nurse practitioner. I have reviewed the nurse practitioner's note and agree with the documented findings and plan of care.
--- NOTE | 2016-12-14 13:50 | XR ---
EXAMINATION TYPE: XR chest 2V DATE OF EXAM: 12/14/2016 1:10 PM COMPARISON: Prior chest x-ray 09 December 2016 HISTORY: Pleural effusions, uterine carcinoma TECHNIQUE: Frontal and lateral views of the chest are obtained. FINDINGS: Similar findings are present. Left-sided Port-A-Cath is in place, distal tip at the cavoat rial junction. Bibasilar densities compatible with effusions and associated atelectasis. There is no evident pneumothorax. Cardiac mediastinal silhouette, pulmonary vascularity and cameron are stable. IMPRESSION: Pleural effusions and associated atelectasis. There is no significant interval change.
--- NOTE | 2016-12-14 14:50 | P.PN ---
Subjective 61-year-old female sitting up in bed family at the bedside. Patient continues to report feeling short of breath with a slight improvement. Patient states she 's not coughing but feels exhausted short of breath. Additionally patient states she has no appetite is not eating with poor caloric intake. Patient did have an ultrasound did show ascites. The patient had undergone a a paracentesis 48 hours ago with 3.8 L removed. Patient is scheduled for another paracentesis scheduled tomorrow morning. Patient continues to be edematous with significant swelling in the bilateral lower extremities up into the mid thigh with abdominal bloating Objective - Vital Signs Vital signs: Vital Signs Temp 97.1 F L 12/14/16 07:00 Pulse 95 12/14/16 07:00 Resp 20 12/14/16 07:00 BP 116/73 12/14/16 07:00 Pulse Ox 95 12/14/16 07:00 Intake & Output 12/13/16 12/14/16 12/14/16 18:59 06:59 18:59 Intake Total 200 320 Output Total 800 1000 100 Balance -600 -680 -100 Weight 65.6 kg Intake: Intake, IV Titration 200 320 Amount Potassium Chloride 10 meq 200 Lidocaine 2% Inj 10 mg In Sodium Chloride 0.9% 100 ml @ 100 mls/hr IVPB Q1HR [facility] Rx#:[id number] Sodium Chloride 0.9% 1, 320 000 ml @ 40 mls/hr IV . Q24H [facility] with Potassium Chloride 30 meq Rx#: [id number] Output: Urine 800 900 Uretheral (Regalado) 900 Stool 100 100 Other: Voiding Method Indwelling Catheter Indwelling Catheter Indwelling Catheter - Exam Physical exam 61-year-old female looking older than stated age sitting up in bed patient reports that she feels exhausted tired out no appetite Lungs diminished at the bases poor air entry upper airways rhonchi noted Heart S1-S2 audible irregular regular denying chest pain Abdomen significantly distended firm a few hypoactive bowel tones reports a nausea sensation indwelling Regalado catheter in place Extremities 2+ pitting edema upper thigh extends down to the feet Brent wrap To the Bilateral Lower Extremities - Labs CBC & Chem 7: 12/12/16 06:24 12/14/16 06:15 Labs: Abnormal Lab Results - Last 24 Hours (Table) 12/13/16 12/14/16 Range/Units 19:45 06:15 Sodium 136 L (137-145) mmol/L Potassium 2.6 L* 2.9 L* (3.5-5.1) mmol/L Carbon Dioxide 31 H (22-30) mmol/L Creatinine 0.29 L (0.52-1.04) mg/dL Calcium 6.7 L (8.4-10.2) mg/dL Total Protein 4.1 L (6.3-8.2) g/dL Albumin 1.8 L (3.5-5.0) g/dL Microbiology - Last 24 Hours (Table) 12/12/16 10:50 Gram Stain - Preliminary Ascites Fluid Body Fluid Culture - Preliminary Assessment and Plan Plan: Impression Present on admission Severe protein calorie malnutrition suspect due to poor caloric intake and ovarian cancer Toxic metabolic encephalopathy present on admission now resolved Recent diagnosis of uterine and Ovarian cancer currently being treated at [facility] Pancytopenia due to chemotherapy Hypo-tension Small right pleural effusion Present on admission clinical dehydration Present on admission abdominal ascites likely due to ovarian cancer Present on admission isolated one episode cardiac arrhythmia nonsustained V. tach resolved Present on admission hypotensive necessitating ICU admission received vasopressors resolved A recent diagnosis of pulmonary emboli on [facility] Recurrent abdominal ascites Bilateral pleural effusions right greater than the left Metastatic ovarian cancer Metastatic adenocarcinoma of ovary Status status post paracentesis a second 3.8 L removed Per advance directives is a no CODE STATUS Plan Continue current plan of care Continue recommendations from consulting physicians reviewed and recognized appreciated DVT and her prophylaxis Nutritional support TPN will be initiated today equist will be restarted when appropriate he above dictated assessment and findings were discussed with dr schwab . Impression and the plan of care have been dictated as directed. Christine Graves nurse practitioner acting as a scribe for dr schwab
[2016-12-14] MEDS ORDERED: HYDROmorphone 1 MG/ML 1 ML SYRINGE IVP PRN (14:51)
[2016-12-14] MEDS ORDERED: MVI, ADULT NO.4 WITH VIT K 10 ML, TRACE (CONC-1ML/DOSE) 1 ML in AMINO ACID 5%-D25W+LYTE... IV ONE ×3 (16:00)
[2016-12-14] MEDS: MEGESTROL 400 MG/10 ML CUP PO SCH (16:27)
[2016-12-14 20:47] LABS: Anisocytosis Moderate; Basophils % (A) 0 %; CH 32.7; CHCM 33.1; Eosinophils % (A) 0 %; HCT 24.8 % (34.0-46.0); HDW 3.78; HGB 8.3 gm/dL (11.4-16.0); Hypochromasia Slight; Luc # (Auto) 0.08; Luc % (Auto) 1; Lymphocytes # (A) 0.2 k/uL (1.0-4.8); Lymphocytes % (A) 1 %; MCH 33.3 pg (25.0-35.0); MCHC 33.4 g/dL (31.0-37.0); MCV 99.5 fL (80.0-100.0); Macrocytosis Slight; Mean Platelet Volume 8.2; Monocytes # (A) 0.6 k/uL (0-1.0); Monocytes % (A) 4 %; Neutrophils # (A) 15.2 k/uL (1.3-7.7); Neutrophils % (A) 95 %; Poikilocytosis Slight; RBC 2.49 m/uL (3.80-5.40); RDW 20.5 % (11.5-15.5); WBC (Perox) 16.68
[2016-12-14 21:00] LABS: ALT 19 U/L (9-52); AST 15 U/L (14-36); Alkaline Phosphatase 103 U/L (38-126); Anion Gap 2 mmol/L; Blood Urea Nitrogen 9 mg/dL (7-17); Calcium 6.6 mg/dL (8.4-10.2); Carbon Dioxide 32 mmol/L (22-30); Chloride 101 mmol/L (98-107); Glucose 130 mg/dL (74-99); Non-African American GFR(MDRD) >60 (>60 ml/min/1.73 sqM); Potassium 3.1 mmol/L (3.5-5.1); Sodium 135 mmol/L (137-145); Total Bilirubin 0.2 mg/dL (0.2-1.3); Total Protein 4.2 g/dL (6.3-8.2)
[2016-12-14] MEDS ORDERED: Potassium Replacement Protocol 1 EACH MISC MISCELLANE PRN (21:42)
[2016-12-14] MEDS ORDERED: POTASSIUM CHLORIDE 20 MEQ in WATER FOR INJECTION 1 100ML.BAG IVPB ONE (22:00)
--- NOTE | 2016-12-14 22:36 | PN ---
DATE OF SERVICE: 12/14/2016 REASON FOR FOLLOWUP: Abnormal CT with a question of pneumonia and leukocytosis. INTERVAL HISTORY: The patient is afebrile. She has been breathing comfortably. Denies significant chest pain or cough. Still has abdominal distention and scheduled for paracentesis this afternoon. No nausea, no vomiting or any diarrhea. On examination, blood pressure is 85/65 with a pulse of 121, temperature 97.7. She is 96% on room air. General description is a middle-aged female lying in bed in no distress. RESPIRATORY SYSTEM: Unlabored breathing with decreased breath sounds at the base. HEART: S1, S2. Regular rate and rhythm. ABDOMEN: Soft. Slightly distended. LABS: No CBC has been repeated. BUN of 8, creatinine 0.29. Potassium 2.9, being replaced by primary. DIAGNOSTIC IMPRESSION AND PLAN: Patient admitted to hospital with weakness, neutropenia from underlying chemo, now with generalized anasarca, significant ascites that is requiring another paracentesis with abnormal CT and there is a possibility of pneumonia. Clinically not behaving as pneumonia. Currently being covered with Augmentin. Family present at the bedside. Their questions were answered.
[2016-12-15 01:07] LABS: Glucose,Whole Blood 120 mg/dL (75-99)
[2016-12-15] MEDS: HYDROmorphone 2 MG TAB PO PRN (03:24)
[2016-12-15] MEDS: SODIUM CHLORIDE 0.9% 1,000 ML IV SCH ×2 (04:15→21:49)
[2016-12-15] MEDS: SODIUM CHLORIDE 0.9% 1,000 ML with POTASSIUM CHLORIDE 30 MEQ IV SCH ×4 (04:15→21:42)
[2016-12-15 06:30] LABS: Glucose,Whole Blood 121 mg/dL (75-99)
[2016-12-15] MEDS: INSULIN LISPRO (humaLOG) 300 UNIT/3 ML VIAL SQ SCH ×3 (06:33→21:48)
[2016-12-15 07:19] LABS: Anisocytosis Moderate; Basophils % (A) 0 %; CH 32.2; Eosinophils % (A) 0 %; HCT 24.4 % (34.0-46.0); HDW 3.53; HGB 7.6 gm/dL (11.4-16.0); Hypochromasia Slight; Luc # (Auto) 0.07; Luc % (Auto) 1; Lymphocytes # (A) 0.2 k/uL (1.0-4.8); Lymphocytes % (A) 1 %; MCH 31.4 pg (25.0-35.0); MCV 101.4 fL (80.0-100.0); Macrocytosis Moderate; Mean Platelet Volume 7.9; Monocytes # (A) 0.5 k/uL (0-1.0); Monocytes % (A) 4 %; Neutrophils # (A) 13.8 k/uL (1.3-7.7); Neutrophils % (A) 95 %; Poikilocytosis Slight; RBC 2.41 m/uL (3.80-5.40); RDW 20.4 % (11.5-15.5); WBC 14.6 k/uL (3.8-10.6); WBC (Perox) 14.56
[2016-12-15 07:52] LABS: Ionized Calcium 4.3 mg/dL (4.5-5.3)
[2016-12-15 08:07] LABS: ALT 27 U/L (9-52); AST 15 U/L (14-36); Alkaline Phosphatase 101 U/L (38-126); Anion Gap 3 mmol/L; Blood Urea Nitrogen 9 mg/dL (7-17); Calcium 6.6 mg/dL (8.4-10.2); Carbon Dioxide 32 mmol/L (22-30); Chloride 101 mmol/L (98-107); Glucose 105 mg/dL (74-99); Magnesium 1.3 mg/dL (1.6-2.3); Non-African American GFR(MDRD) >60 (>60 ml/min/1.73 sqM); Phosphorous 2.3 mg/dL (2.5-4.5); Sodium 136 mmol/L (137-145); Total Bilirubin 0.3 mg/dL (0.2-1.3); Total Protein 4.1 g/dL (6.3-8.2); Triglycerides 54 mg/dL (<150)
[2016-12-15] MEDS: HEPARIN SODIUM,PORCINE 5,000 UNIT/ML 1 ML VIAL SQ SCH ×2 (08:10→16:36)
[2016-12-15 08:11] LABS: Potassium 2.9 mmol/L (3.5-5.1)
[2016-12-15] MEDS: HYDROCORTISONE SUCCINATE 100 MG/2 ML VIAL IV SCH ×2 (08:11→16:38)
[2016-12-15] MEDS: FAMOTIDINE 20 MG TAB PO SCH ×2 (08:13→21:45)
[2016-12-15] MEDS: AMOXIC-POT CLAV 875-125MG 1 EACH TAB PO SCH ×2 (08:13→21:43)
[2016-12-15] MEDS: FUROSEMIDE 10 MG/ML 2 ML VIAL IV SCH ×2 (08:13→21:45)
[2016-12-15] MEDS: MEGESTROL 400 MG/10 ML CUP PO SCH (08:14)
[2016-12-15] MEDS: POTASSIUM CHLORIDE ER 20 MEQ TAB.ER PO SCH (08:14)
[2016-12-15] MEDS ORDERED: Potassium Replacement Protocol 1 EACH MISC MISCELLANE PRN (09:40)
[2016-12-15] MEDS ORDERED: POTASSIUM CHLORIDE 10 MEQ in WATER FOR INJECTION 1 100ML.BAG IVPB ONE (10:00)
[2016-12-15 10:18] LABS: INR 1.1 (<1.1)
--- NOTE | 2016-12-15 10:43 | US ---
EXAMINATION TYPE: US abdomen limited DATE OF EXAM: 12/15/2016 10:32 AM COMPARISON: Paracentesis dated 12/12/2016. CLINICAL HISTORY: ascites. Mild abdominal fluid noted, all 4 quadrants scanned. Subcutaneous edema, which is generalized likely representing anasarca is also incidentally noted. Visualized portions of the liver are unremarkable w ith a smooth contour. IMPRESSION: Abdominopelvic ascites, mild in degree.
[2016-12-15] MEDS ORDERED: POTASSIUM CHLORIDE 20 MEQ in WATER FOR INJECTION 1 100ML.BAG IVPB ONE (11:00)
[2016-12-15 11:27] LABS: Glucose,Whole Blood 104 mg/dL (75-99)
--- NOTE | 2016-12-15 13:23 | P.PN ---
Progress Note - Text patient eating lunch; seems tired; lympedema now managed with compression will see patient on 12/16/2016
--- NOTE | 2016-12-15 13:42 | P.PN ---
Subjective This is a 61-year-old female being evaluated and examined today on the fifth floor.. The patient came in to the emergency room for mental status changes. Patient was accompanied by her and son who stated that she could not get up this morning and was not being herself. Patient has been much less active, her intake has decreased and she has not been able to communicate with her family. The patient does have a history of ovarian cancel cancer and some possible abdominal metastasis per the family. She currently is being seen by, institute and each right those records are not readily available at this time. Patient states her last chemotherapy treatment was about 2 weeks ago. She denies having any fevers or any obvious signs of infection, however she has not able to provide much history. Her blood work showed pancytopenia as well as electrolyte abnormalities including hypokalemia. She was also dehydrated. The patient was started on IV fluids and her electrolytes were replaced. The patient does have a Mediport in place. Oncology was put on consult as well. Upon examination the patient is resting up in bed on room air with family at bedside. Patient does get short of breath with exertion however it has significantly improved. She was still continued to require breathing treatments as needed. She denies any cough or congestion at this time. She continues to appears very weak and cachectic. ultrasound of the abdomen showed ascites in all 4 quadrant, patient went for paracentesis, 3.8 L of serous fluid was removed. Patient was scheduled for another paracentesis today however ultrasound of the abdomen revealed there was not enough fluid to tap. She states her full feeling in the abdomen has slightly decreased today however she is still extremely uncomfortable. Swelling slightly decreased today. Objective - Vital Signs Vital signs: Vital Signs Temp 97.7 F 12/15/16 07:00 Pulse 95 12/15/16 07:00 Resp 20 12/15/16 07:00 BP 94/60 12/15/16 07:00 Pulse Ox 95 12/15/16 07:00 Intake & Output 12/14/16 12/15/16 12/15/16 18:59 06:59 18:59 Intake Total 380 860 Output Total 100 5050 Balance 280 -4190 Weight 65.6 kg Intake: IV 740 Mvi, Adult No.4 with Vit 240 K 10 ml Trace (Conc-1Ml/ Dose) 1 ml In Amino Acid 5%-D25w+Lytes*E* 1,000 ml @ 20 mls/hr IV .Q24H [facility] Rx#:[id number] Potassium Chloride 20 meq 100 In Water For Injection 1 100ml.bag @ 50 mls/hr IVPB [facility] Rx#: [id number] Sodium Chloride 0.9% 1, 400 000 ml @ 40 mls/hr IV . Q24H [facility] with Potassium Chloride 30 meq Rx#: [id number] Intake, IV Titration 380 Amount Potassium Chloride 20 meq 100 In Water For Injection 1 100ml.bag @ 50 mls/hr IVPB Q2H [facility] Rx#: [id number] Sodium Chloride 0.9% 1, 280 000 ml @ 40 mls/hr IV . Q24H [facility] with Potassium Chloride 30 meq Rx#: [id number] Oral 120 Output: Urine 3750 Stool 100 1300 Other: Voiding Method Indwelling Catheter Indwelling Catheter Indwelling Catheter - Exam GENERAL EXAM: Alert, comfortable in no apparent distress. HEAD: Normocephalic. EYES: Normal reaction of pupils, equal size. NOSE: Clear with pink turbinates. THROAT: No erythema or exudates. NECK: No masses, no JVD. CHEST: No chest wall deformity. LUNGS: Equal air entry with no crackles, wheeze, rhonchi or dullness. Bases diminished CVS: S1 and S2 normal with no audible mumurs, irregular rhythm. ABDOMEN: No hepatosplenomegaly, normal bowel sounds, no guarding or rigidity. Mildly distended EXTREMITIES: +2 edema noted, pedal pulses palpable. SKIN: No rashes CENTRAL NERVOUS SYSTEM: No focal deficits, tone is weak in all 4 extremities. - Labs CBC & Chem 7: 12/15/16 06:35 12/15/16 06:35 Labs: Abnormal Lab Results - Last 24 Hours (Table) 12/14/16 12/14/16 12/15/16 Range/Units 20:40 20:40 01:05 WBC 16.0 H (3.8-10.6) k/uL RBC 2.49 L (3.80-5.40) m/uL Hgb 8.3 L (11.4-16.0) gm/dL Hct 24.8 L (34.0-46.0) % MCV (80.0-100.0) fL RDW 20.5 H (11.5-15.5) % Plt Count 100 L (150-450) k/uL Neutrophils # 15.2 H (1.3-7.7) k/uL Lymphocytes # 0.2 L (1.0-4.8) k/uL Sodium 135 L (137-145) mmol/L Potassium 3.1 L (3.5-5.1) mmol/L Carbon Dioxide 32 H (22-30) mmol/L Creatinine 0.32 L (0.52-1.04) mg/dL Glucose 130 H (74-99) mg/dL POC Glucose (mg/dL) 120 H (75-99) mg/dL Calcium 6.6 L (8.4-10.2) mg/dL Ionized Calcium Payton (4.5-5.3) mg/dL Phosphorus (2.5-4.5) mg/dL Magnesium (1.6-2.3) mg/dL Total Protein 4.2 L (6.3-8.2) g/dL Albumin 1.9 L (3.5-5.0) g/dL 12/15/16 12/15/16 12/15/16 Range/Units 06:28 06:35 06:35 WBC 14.6 H (3.8-10.6) k/uL RBC 2.41 L (3.80-5.40) m/uL Hgb 7.6 L (11.4-16.0) gm/dL Hct 24.4 L (34.0-46.0) % MCV 101.4 H (80.0-100.0) fL RDW 20.4 H (11.5-15.5) % Plt Count 105 L (150-450) k/uL Neutrophils # 13.8 H (1.3-7.7) k/uL Lymphocytes # 0.2 L (1.0-4.8) k/uL Sodium 136 L (137-145) mmol/L Potassium 2.9 L* (3.5-5.1) mmol/L Carbon Dioxide 32 H (22-30) mmol/L Creatinine 0.28 L (0.52-1.04) mg/dL Glucose 105 H (74-99) mg/dL POC Glucose (mg/dL) 121 H (75-99) mg/dL Calcium 6.6 L (8.4-10.2) mg/dL Ionized Calcium Payton 4.3 L (4.5-5.3) mg/dL Phosphorus 2.3 L (2.5-4.5) mg/dL Magnesium 1.3 L (1.6-2.3) mg/dL Total Protein 4.1 L (6.3-8.2) g/dL Albumin 1.8 L (3.5-5.0) g/dL 12/15/16 Range/Units 11:25 WBC (3.8-10.6) k/uL RBC (3.80-5.40) m/uL Hgb (11.4-16.0) gm/dL Hct (34.0-46.0) % MCV (80.0-100.0) fL RDW (11.5-15.5) % Plt Count (150-450) k/uL Neutrophils # (1.3-7.7) k/uL Lymphocytes # (1.0-4.8) k/uL Sodium (137-145) mmol/L Potassium (3.5-5.1) mmol/L Carbon Dioxide (22-30) mmol/L Creatinine (0.52-1.04) mg/dL Glucose (74-99) mg/dL POC Glucose (mg/dL) 104 H (75-99) mg/dL Calcium (8.4-10.2) mg/dL Ionized Calcium Payton (4.5-5.3) mg/dL Phosphorus (2.5-4.5) mg/dL Magnesium (1.6-2.3) mg/dL Total Protein (6.3-8.2) g/dL Albumin (3.5-5.0) g/dL Microbiology - Last 24 Hours (Table) 12/12/16 10:50 Gram Stain - Preliminary Ascites Fluid Body Fluid Culture - Preliminary Assessment and Plan Plan: Assessment Small right pleural effusion Hypotension Pancytopenia due to chemotherapy Hypokalemia Dehydration Altered mental status Ovarian cancer, currently being treated at, [facility] in [place]. Severe protein-calorie malnutrition Toxic metabolic encephalopathy, now resolved Abdominal ascites Lab Medications have been reviewed and will be continued. We will add nebulizer treatments as needed to help with her shortness of breath. She occasionally still gets short of breath due to ascites. Electrolytes replaced per protocol. Paracentesis specimen results pending. Second paracentesis canceled. Appreciate input from oncology. Infectious disease also on consult. Dietitian on consult. GI and DVT prophylactics. We will continue to monitor her pleural effusions closely. Patient on TPN as well. We will continue to monitor labs/ results and adjust treatment as necessary. I performed an examination of the patient and discussed their management with the nurse practitioner. I have reviewed the nurse practitioner's note and agree with the documented findings and plan of care.
[2016-12-15] MEDS ORDERED: MVI, ADULT NO.4 WITH VIT K 10 ML, TRACE (CONC-1ML/DOSE) 1 ML, POTASSIUM CHLORIDE 20 MEQ... IV SCH ×4 (16:00)
[2016-12-15] MEDS ORDERED: FAT EMULSION 20% 250 ML IV SCH (16:00)
[2016-12-15] MEDS ORDERED: ONDANSETRON 4 MG/2 ML VIAL IVP PRN (16:06)
[2016-12-15] MEDS: LORazepam 2 MG/ML SYRINGE IV PRN ×2 (16:20→21:48)
--- NOTE | 2016-12-15 16:27 | PN ---
SUBJECTIVE: This is a 61-year-old white female with pancytopenia, hyperkalemia, ascites, severe malnutrition, peripheral edema; started on TPN, low dose at this time. IV Lasix has been given 20 q.12. Patient had 4 L of fluid off overnight. Vital signs are stable. Afebrile. CARDIOVASCULAR: S1 and S2. LUNGS: Transmitted upper airway sounds. GI: Soft. HEMATOLOGIC: There is third spacing fluid. ASSESSMENT: 1. Pancytopenia. 2. Hyperkalemia. 3. Septic shock. 4. Severe hypoalbuminemia with significant pulmonary edema. Continue with IV Lasix, TPN low dose. PT, OT. Hopefully strong diuresis with severe anasarca ( ) will be improved and she will be able to ambulate and go home in the next 2 to 3 days.
[2016-12-15] MEDS ORDERED: POTASSIUM CHLORIDE 10 MEQ in WATER FOR INJECTION 1 100ML.BAG IVPB STA (18:18)
--- NOTE | 2016-12-15 18:24 | P.PN ---
Subjective Principal diagnosis: AMS, metastatic ovarian Patient is seen today in follow-up. Patient denies feeling any better today than she did on admission. Patient does not feel that she is improving. She is very weak, unable to tolerate oral intake due to lack of appetite, she will get short of breath with any activity, her abdomen is uncomfortable but her current analgesic regimen seems to be fairly adequate. Her is at the bedside. Objective - Vital Signs Vital signs: Vital Signs Temp 98.0 F 12/15/16 15:10 Pulse 106 H 12/15/16 15:10 Resp 20 12/15/16 15:10 BP 91/57 12/15/16 15:10 Pulse Ox 94 L 12/15/16 15:10 Intake & Output 12/14/16 12/15/16 12/15/16 18:59 06:59 18:59 Intake Total 380 860 Output Total 100 5050 825 Balance 280 -4190 -825 Weight 65.6 kg 66.714 kg Intake: IV 740 Mvi, Adult No.4 with Vit 240 K 10 ml Trace (Conc-1Ml/ Dose) 1 ml In Amino Acid 5%-D25w+Lytes*E* 1,000 ml @ 20 mls/hr IV .Q24H ONE Rx#:[id number] Potassium Chloride 20 meq 100 In Water For Injection 1 100ml.bag @ 50 mls/hr IVPB ONCE ONE Rx#: [id number] Sodium Chloride 0.9% 1, 400 000 ml @ 40 mls/hr IV . Q24H HANH with Potassium Chloride 30 meq Rx#: [id number] Intake, IV Titration 380 Amount Potassium Chloride 20 meq 100 In Water For Injection 1 100ml.bag @ 50 mls/hr IVPB Q2H HANH Rx#: [id number] Sodium Chloride 0.9% 1, 280 000 ml @ 40 mls/hr IV . Q24H HANH with Potassium Chloride 30 meq Rx#: [id number] Oral 120 Output: Urine 3750 825 Stool 100 1300 Other: Voiding Method Indwelling Catheter Indwelling Catheter Indwelling Catheter # Bowel Movements 1 - Exam Thin, frail female laying in bed, muscle wasting apparent, patient is alert and oriented to self, place, time and situation. - Labs CBC & Chem 7: 12/15/16 06:35 12/15/16 15:15 Labs: Abnormal Lab Results - Last 24 Hours (Table) 12/14/16 12/14/16 12/15/16 Range/Units 20:40 20:40 01:05 WBC 16.0 H (3.8-10.6) k/uL RBC 2.49 L (3.80-5.40) m/uL Hgb 8.3 L (11.4-16.0) gm/dL Hct 24.8 L (34.0-46.0) % MCV (80.0-100.0) fL RDW 20.5 H (11.5-15.5) % Plt Count 100 L (150-450) k/uL Neutrophils # 15.2 H (1.3-7.7) k/uL Lymphocytes # 0.2 L (1.0-4.8) k/uL Sodium 135 L (137-145) mmol/L Potassium 3.1 L (3.5-5.1) mmol/L Carbon Dioxide 32 H (22-30) mmol/L Creatinine 0.32 L (0.52-1.04) mg/dL Glucose 130 H (74-99) mg/dL POC Glucose (mg/dL) 120 H (75-99) mg/dL Calcium 6.6 L (8.4-10.2) mg/dL Ionized Calcium Payton (4.5-5.3) mg/dL Phosphorus (2.5-4.5) mg/dL Magnesium (1.6-2.3) mg/dL Total Protein 4.2 L (6.3-8.2) g/dL Albumin 1.9 L (3.5-5.0) g/dL 12/15/16 12/15/16 12/15/16 Range/Units 06:28 06:35 06:35 WBC 14.6 H (3.8-10.6) k/uL RBC 2.41 L (3.80-5.40) m/uL Hgb 7.6 L (11.4-16.0) gm/dL Hct 24.4 L (34.0-46.0) % MCV 101.4 H (80.0-100.0) fL RDW 20.4 H (11.5-15.5) % Plt Count 105 L (150-450) k/uL Neutrophils # 13.8 H (1.3-7.7) k/uL Lymphocytes # 0.2 L (1.0-4.8) k/uL Sodium 136 L (137-145) mmol/L Potassium 2.9 L* (3.5-5.1) mmol/L Carbon Dioxide 32 H (22-30) mmol/L Creatinine 0.28 L (0.52-1.04) mg/dL Glucose 105 H (74-99) mg/dL POC Glucose (mg/dL) 121 H (75-99) mg/dL Calcium 6.6 L (8.4-10.2) mg/dL Ionized Calcium Payton 4.3 L (4.5-5.3) mg/dL Phosphorus 2.3 L (2.5-4.5) mg/dL Magnesium 1.3 L (1.6-2.3) mg/dL Total Protein 4.1 L (6.3-8.2) g/dL Albumin 1.8 L (3.5-5.0) g/dL 12/15/16 12/15/16 Range/Units 11:25 15:15 WBC (3.8-10.6) k/uL RBC (3.80-5.40) m/uL Hgb (11.4-16.0) gm/dL Hct (34.0-46.0) % MCV (80.0-100.0) fL RDW (11.5-15.5) % Plt Count (150-450) k/uL Neutrophils # (1.3-7.7) k/uL Lymphocytes # (1.0-4.8) k/uL Sodium (137-145) mmol/L Potassium 3.0 L* (3.5-5.1) mmol/L Carbon Dioxide (22-30) mmol/L Creatinine (0.52-1.04) mg/dL Glucose (74-99) mg/dL POC Glucose (mg/dL) 104 H (75-99) mg/dL Calcium (8.4-10.2) mg/dL Ionized Calcium Payton (4.5-5.3) mg/dL Phosphorus (2.5-4.5) mg/dL Magnesium (1.6-2.3) mg/dL Total Protein (6.3-8.2) g/dL Albumin (3.5-5.0) g/dL Microbiology - Last 24 Hours (Table) 12/12/16 10:50 Gram Stain - Preliminary Ascites Fluid Body Fluid Culture - Preliminary Assessment and Plan (1) Metastatic adenocarcinoma of ovary Narrative/Plan: Did discuss the case with patient's primary oncologist Dr. Gonzalez at [facility]. Dr. Gonzalez described a gradual decline in patient's performance status over the past 3 months. They had discussed options of pursuing more treatment versus a hospice. Patient did want to attempt treatment. Patient received single agent Adriamycin once, patient was admitted status post this dose in critical condition. Patient does agree that she does not feel she is improving and that in fact she feels as though she is declining. Patient verbalized that status is correct. We discussed optimizing comfort and discontinuing invasive procedures such as lab draws. We discussed hospice and the options for hospice in the home, at [facility] or hospice house, this would be based on insurance. I did talk to the patient's son over the phone and explained to him the same as above. Patient and her were obviously at this time extraordinarily overwhelmed with all of the information. I assured the patient and her that we would allow them time to think things through and that all they had to do was informed nursing when they were ready to have a discussion with case management or social work and they would be able to work out the details for hospice care based on their preferences. Case was discussed with nursing. Invasive procedures have been discontinued. Continue current management of patient. Did ask nursing to contact the attending Physician for further instructions regarding discontinuation of medications/orders such as TPN. Status: Chronic (2) Pancytopenia due to chemotherapy Narrative/Plan: Patient's CBC has stabilized, patient has had an improvement in her white count as well as her platelet count, Hgb stable Status: Acute (3) Pulmonary emboli Narrative/Plan: Patient was on eliquis on admission for PE. This had to be held due to significantly low platelet counts on admit. Patient's platelet counts have recovered. She is okay to resume eliquis as prescribed as long as there are no plans for any procedures. Status: Acute
[2016-12-15] MEDS: APIXABAN 5 MG TAB PO SCH (23:09)
[2016-12-16] MEDS ORDERED: Potassium Replacement Protocol 1 EACH MISC MISCELLANE PRN ×4 (01:05→17:10)
[2016-12-16] MEDS ORDERED: POTASSIUM CHLORIDE 20 MEQ in WATER FOR INJECTION 1 100ML.BAG IVPB ONE (01:05)
[2016-12-16] MEDS: HYDROCORTISONE SUCCINATE 100 MG/2 ML VIAL IV SCH ×3 (01:25→15:15)
[2016-12-16] MEDS: INSULIN LISPRO (humaLOG) 300 UNIT/3 ML VIAL SQ SCH ×2 (01:30→07:37)
[2016-12-16 06:16] LABS: Anisocytosis Moderate; Basophils % (A) 0 %; CH 32.5; CHCM 32.6; Eosinophils % (A) 0 %; HCT 24.6 % (34.0-46.0); HGB 8.2 gm/dL (11.4-16.0); Hypochromasia Slight; Luc # (Auto) 0.13; Luc % (Auto) 1; Lymphocytes # (A) 0.2 k/uL (1.0-4.8); Lymphocytes % (A) 1 %; MCH 33.4 pg (25.0-35.0); MCHC 33.3 g/dL (31.0-37.0); MCV 100.4 fL (80.0-100.0); Macrocytosis Moderate; Mean Platelet Volume 7.6; Monocytes # (A) 0.5 k/uL (0-1.0); Monocytes % (A) 4 %; Neutrophils % (A) 94 %; Poikilocytosis Slight; RBC 2.45 m/uL (3.80-5.40); RDW 20.6 % (11.5-15.5); WBC 12.8 k/uL (3.8-10.6); WBC (Perox) 13.04
[2016-12-16 06:34] LABS: ALT 23 U/L (9-52); AST 14 U/L (14-36); Alkaline Phosphatase 86 U/L (38-126); Anion Gap 3 mmol/L; Blood Urea Nitrogen 11 mg/dL (7-17); Calcium 6.7 mg/dL (8.4-10.2); Carbon Dioxide 33 mmol/L (22-30); Chloride 103 mmol/L (98-107); Glucose 77 mg/dL (74-99); Magnesium 1.3 mg/dL (1.6-2.3); Non-African American GFR(MDRD) >60 (>60 ml/min/1.73 sqM); Phosphorous 2.6 mg/dL (2.5-4.5); Sodium 139 mmol/L (137-145); Total Bilirubin 0.3 mg/dL (0.2-1.3)
--- NOTE | 2016-12-16 07:20 | PN ---
DATE OF SERVICE: 12/15/2016 Reason for follow-up is abnormal CT and a question of pneumonia and leukocytosis. INTERVAL HISTORY: The patient is afebrile. She has been breathing comfortably. Denies significant chest pain. Occasional cough. No abdominal pain. No nausea or vomiting. On examination, blood pressure is 91/57 with pulse of 106, temperature 98. She is 94% on room air. Major description is a middle-age female lying in bed in no distress. RESPIRATORY SYSTEM: Unlabored breathing with decreased breath sounds at the base. HEART: S1, S2 regular rate and rhythm. ABDOMEN: Soft, slightly distended. EXTREMITIES: 2+ edema of feet. LABS: Hemoglobin 7.7, white count of 14.6. BUN of 9 with a creatinine 0.28. DIAGNOSTIC IMPRESSION AND PLAN: Patient with generalized anasarca with possible fluid in the lungs. Clinical suspicion remains low for pneumonia. Currently a week out with Augment therapy. Plan of care was discussed with nurse practitioner for the Oncology as hospice or comfort care may be prepared for her. Continue supportive care. MTDD
[2016-12-16] MEDS: AMOXIC-POT CLAV 875-125MG 1 EACH TAB PO SCH ×2 (09:17→19:55)
[2016-12-16] MEDS: FUROSEMIDE 10 MG/ML 2 ML VIAL IV SCH ×2 (09:17→19:56)
[2016-12-16] MEDS: FAMOTIDINE 20 MG TAB PO SCH ×2 (09:17→19:56)
[2016-12-16] MEDS: POTASSIUM CHLORIDE ER 20 MEQ TAB.ER PO SCH ×3 (09:17→23:18)
[2016-12-16] MEDS: APIXABAN 5 MG TAB PO SCH ×2 (09:17→19:56)
[2016-12-16] MEDS: MEGESTROL 400 MG/10 ML CUP PO SCH (09:17)
--- NOTE | 2016-12-16 13:05 | P.GSCN ---
History of Present Illness Consult date: 12/16/16 Reason for Consult: "lymphedema of both legs" History of present illness: DR. FUNES IS AWAY ON EMERGENCY FAMILY LEAVE; WILL BE BACK ON 12/18/2016 AT 0800 NORA IS COVERING impession; 1. anasarca resulting in edema of both legs; patient does not exhibit symptoms/ signs of classic lymphedema 2. protein/calorie malnutrition; serum albumin is 1.8 plan; 1. continue current medical regimen including compression wraps and nutritional support HPI; Unfortunate 61 y/o woman with history of breast and ovarian carcinoma, known anasarca, malignant ascites with peritoneal metastasis, now with edema of both legs. Currently undergoing chemotherapy but exact type is not available. Family and patient state that edema is significantly improved since her legs have been wrapped with tsanislaw bandages and she has been on furosemide. NO history of leg edema in the past; has been present a few weeks. Patient has a history of lower extremity DVT and is on apixaban. PE: HEENT; no bruits, no JVD ABD; soft; functional left lower quadrant colostomy; lower abdominal and pelvic soft tissue edema noted EXTR; femoral, popliteal, dorsalis pedis pulses are palpable bilaterally; edema of both legs extending from groins to feet; areas that have been wrapped from malleoli to just below knees are without significant edema; edema is pitting in nature CT abdomen and pelvis demonstrates evidence of severe anasarca with bilateral pleural effusions; see report from 12/12/2016 impression/plan as noted above. Past Medical History Past Medical History: Cancer, Deep Vein Thrombosis (DVT) Additional Past Medical History / Comment(s): hx breast CA 22 years ago, uterine CA 5 years ago, recent metastatic disease History of Any Multi-Drug Resistant Organisms: None Reported Past Surgical History: Bowel Resection, Hysterectomy Additional Past Surgical History / Comment(s): colostomy, right mastectomy Past Anesthesia/Blood Transfusion Reactions: No Reported Reaction Past Psychological History: No Psychological Hx Reported Smoking Status: Former smoker Past Alcohol Use History: None Reported Past Drug Use History: None Reported Medications and Allergies Home Medications Medication Instructions Recorded Confirmed Type Apixaban [Eliquis] 5 mg PO BID 12/04/16 12/04/16 History Docusate [Colace] 100 mg PO DAILY PRN 12/04/16 12/04/16 History HYDROmorphone [Dilaudid] 2 mg PO Q4H PRN 12/04/16 12/04/16 History Allergies Allergy/AdvReac Type Severity Reaction Status Date / Time No Known Allergies Allergy Verified 12/04/16 15:51 Surgical - Exam Vital Signs Temp Pulse Resp BP Pulse Ox 96.8 F L 68 20 107/72 95 12/04/16 13:48 12/04/16 13:48 12/04/16 13:48 12/04/16 13:48 12/04/16 13:48 Results - Labs 12/16/16 05:45 12/16/16 05:45 Abnormal Lab Results - Last 24 Hours (Table) 12/15/16 12/16/16 12/16/16 Range/Units 15:15 00:10 05:45 WBC 12.8 H (3.8-10.6) k/uL RBC 2.45 L (3.80-5.40) m/uL Hgb 8.2 L (11.4-16.0) gm/dL Hct 24.6 L (34.0-46.0) % MCV 100.4 H (80.0-100.0) fL RDW 20.6 H (11.5-15.5) % Plt Count 127 L (150-450) k/uL Neutrophils # 12.0 H (1.3-7.7) k/uL Lymphocytes # 0.2 L (1.0-4.8) k/uL Potassium 3.0 L* 2.7 L* (3.5-5.1) mmol/L Carbon Dioxide (22-30) mmol/L Creatinine (0.52-1.04) mg/dL Calcium (8.4-10.2) mg/dL Magnesium (1.6-2.3) mg/dL Total Protein (6.3-8.2) g/dL Albumin (3.5-5.0) g/dL 12/16/16 Range/Units 05:45 WBC (3.8-10.6) k/uL RBC (3.80-5.40) m/uL Hgb (11.4-16.0) gm/dL Hct (34.0-46.0) % MCV (80.0-100.0) fL RDW (11.5-15.5) % Plt Count (150-450) k/uL Neutrophils # (1.3-7.7) k/uL Lymphocytes # (1.0-4.8) k/uL Potassium 3.0 L* (3.5-5.1) mmol/L Carbon Dioxide 33 H (22-30) mmol/L Creatinine 0.27 L (0.52-1.04) mg/dL Calcium 6.7 L (8.4-10.2) mg/dL Magnesium 1.3 L (1.6-2.3) mg/dL Total Protein 4.0 L (6.3-8.2) g/dL Albumin 1.8 L (3.5-5.0) g/dL Microbiology - Last 24 Hours (Table) 12/12/16 10:50 Gram Stain - Preliminary Ascites Fluid Body Fluid Culture - Preliminary Diabetes panel 12/15/16 12/16/16 12/16/16 Range/Units 15:15 00:10 05:45 Sodium 139 (137-145) mmol/L Potassium 3.0 L* 2.7 L* 3.0 L* (3.5-5.1) mmol/L Chloride 103 (98-107) mmol/L Carbon Dioxide 33 H (22-30) mmol/L BUN 11 (7-17) mg/dL Creatinine 0.27 L (0.52-1.04) mg/dL Glucose 77 (74-99) mg/dL Calcium 6.7 L (8.4-10.2) mg/dL AST 14 (14-36) U/L ALT 23 (9-52) U/L Alkaline Phosphatase 86 (38-126) U/L Total Protein 4.0 L (6.3-8.2) g/dL Albumin 1.8 L (3.5-5.0) g/dL Calcium panel 12/16/16 Range/Units 05:45 Calcium 6.7 L (8.4-10.2) mg/dL Phosphorus 2.6 (2.5-4.5) mg/dL Albumin 1.8 L (3.5-5.0) g/dL Pituitary panel 12/15/16 12/16/16 12/16/16 Range/Units 15:15 00:10 05:45 Sodium 139 (137-145) mmol/L Potassium 3.0 L* 2.7 L* 3.0 L* (3.5-5.1) mmol/L Chloride 103 (98-107) mmol/L Carbon Dioxide 33 H (22-30) mmol/L BUN 11 (7-17) mg/dL Creatinine 0.27 L (0.52-1.04) mg/dL Glucose 77 (74-99) mg/dL Calcium 6.7 L (8.4-10.2) mg/dL Adrenal panel 12/15/16 12/16/16 12/16/16 Range/Units 15:15 00:10 05:45 Sodium 139 (137-145) mmol/L Potassium 3.0 L* 2.7 L* 3.0 L* (3.5-5.1) mmol/L Chloride 103 (98-107) mmol/L Carbon Dioxide 33 H (22-30) mmol/L BUN 11 (7-17) mg/dL Creatinine 0.27 L (0.52-1.04) mg/dL Glucose 77 (74-99) mg/dL Calcium 6.7 L (8.4-10.2) mg/dL Total Bilirubin 0.3 (0.2-1.3) mg/dL AST 14 (14-36) U/L ALT 23 (9-52) U/L Alkaline Phosphatase 86 (38-126) U/L Total Protein 4.0 L (6.3-8.2) g/dL Albumin 1.8 L (3.5-5.0) g/dL
--- NOTE | 2016-12-16 14:39 | PN ---
CHIEF COMPLAINT: A 61-year-old white female who remains on Solu-Cortef with IV. IV Lasix is being continued. She has had great diuresis of her legs. She has over 2000 mL of urine in last 24 hours. She is on Megace for appetite stimulant. She is on Eliquis for atrial fibrillation, Augmentin for possible pneumonia, DuoNeb updrafts for COPD. Her labs today 12.8 on white count, 8.2 on hemoglobin, platelet count is 127. Potassium is low at 3.0. Sodium is 139. Creatinine is 0.27. I had a long discussion with her family and herself including increasing her oral intake as she is not eating well. She has hypoalbuminemia. Will continue to increase oral feed intake. Discussed with the son and the sister. Increased mobility will be done over the next 2 to 3 days and will possibly be sent home. Oncology does not want to do any further treatment with her as she almost from this. CARDIOVASCULAR: S1, S2. LUNGS: Transmitted breath sounds. HEMATOLOGIC: Negative Homans. PSYCH: Fair mood and affect. NEUROLOGIC: Alert and oriented x3 ASSESSMENT: 1. Pancytopenia. 2. Systemic ovarian cancer. 3. Ascites. 4. Hypoalbuminemia. 5. Chronic obstructive pulmonary disease exacerbation. 6. Paroxysmal atrial fibrillation, status post septic shock. Continue with current treatment including potassium replacement, protein oral intake increased, PT, OT and possible discharge home in next 2 to 3 days if her ambulation increases. She was offered hospice versus a [facility] versus going home and she is not sure what she wants to do at this time. We discussed the case with the family. I mentioned going on antidepressants. She is not sure if she wants to.
[2016-12-16] MEDS: POTASSIUM CHLORIDE 10 MEQ, LIDOCAINE 2% INJ 10 MG in SODIUM CHLORIDE 0.9% 100 ML IV SCH ×2 (15:15→16:20)
--- NOTE | 2016-12-16 17:19 | PN ---
She was seen again on 12/16/2016. She has no shortness of breath. She has been hemodynamically stable. She does not complain of any pain. On physical examination, her blood pressure 110/61, respiratory rate 16, pulse rate 108, temperature 98.3, O2 sat on room air is 90%. HEENT is unremarkable. Chest reveals decreased breath sounds. Cardiovascular system reveals an S1 and S2. Abdomen is soft. There is no edema. White count is 12.8, hemoglobin of 8.2. Sodium 139, potassium 3, chloride 103, bicarb 33. BUN 11, creatinine 0.27. IMPRESSION AT THIS TIME: 1. Ovarian cancer. 2. Medical debility and protein calorie malnutrition. 3. Right pleural effusion that is small. Continue current treatment, replace potassium, increase her activity level.
[2016-12-16] MEDS: POTASSIUM CHLORIDE 10 MEQ in WATER FOR INJECTION 1 100ML.BAG IVPB SCH ×2 (17:49→22:30)
[2016-12-16] MEDS: SODIUM CHLORIDE 0.9% 1,000 ML with POTASSIUM CHLORIDE 30 MEQ IV SCH ×2 (19:56)
[2016-12-16] MEDS: SODIUM CHLORIDE 0.9% 1,000 ML IV SCH (22:33)
[2016-12-16] MEDS ORDERED: SODIUM CHLORIDE 0.9% 500 ML IV ONE (23:00)
[2016-12-17] MEDS ORDERED: Potassium Replacement Protocol 1 EACH MISC MISCELLANE PRN ×2 (02:28→09:05)
[2016-12-17] MEDS ORDERED: POTASSIUM CHLORIDE 20 MEQ in WATER FOR INJECTION 1 100ML.BAG IVPB ONE (02:28)
[2016-12-17] MEDS: HYDROCORTISONE SUCCINATE 100 MG/2 ML VIAL IV SCH ×4 (02:38→23:55)
[2016-12-17 06:39] LABS: Anisocytosis Moderate; Basophils % (A) 0 %; CH 32.4; CHCM 31.7; Eosinophils % (A) 0 %; HCT 23.8 % (34.0-46.0); HDW 3.44; HGB 7.4 gm/dL (11.4-16.0); Hypochromasia Moderate; Luc % (Auto) 1; Lymphocytes # (A) 0.2 k/uL (1.0-4.8); Lymphocytes % (A) 2 %; MCH 32.1 pg (25.0-35.0); MCHC 31.1 g/dL (31.0-37.0); MCV 103.2 fL (80.0-100.0); Macrocytosis Marked; Mean Platelet Volume 8.4; Monocytes # (A) 0.5 k/uL (0-1.0); Monocytes % (A) 4 %; Neutrophils # (A) 10.3 k/uL (1.3-7.7); Neutrophils % (A) 93 %; Poikilocytosis Slight; RDW 21.1 % (11.5-15.5); WBC (Perox) 10.87
[2016-12-17 06:52] LABS: ALT 29 U/L (9-52); AST 19 U/L (14-36); Alkaline Phosphatase 88 U/L (38-126); Anion Gap 1 mmol/L; Blood Urea Nitrogen 9 mg/dL (7-17); Calcium 6.6 mg/dL (8.4-10.2); Carbon Dioxide 30 mmol/L (22-30); Chloride 107 mmol/L (98-107); Glucose 78 mg/dL (74-99); Magnesium 1.3 mg/dL (1.6-2.3); Non-African American GFR(MDRD) >60 (>60 ml/min/1.73 sqM); Phosphorous 2.5 mg/dL (2.5-4.5); Potassium 3.4 mmol/L (3.5-5.1); Sodium 138 mmol/L (137-145); Total Bilirubin 0.4 mg/dL (0.2-1.3); Total Protein 3.9 g/dL (6.3-8.2)
--- NOTE | 2016-12-17 07:37 | PN ---
DATE OF SERVICE: 12/16/2016 Reason for follow-up is: 1. Abnormal CT with question of pneumonia. 2. Diarrhea. INTERVAL HISTORY: The patient is noted to have significant diarrhea with significant output in the ileostomy, colostomy bag, however, the patient did have significant abdominal pain. She denies significant chest pain or shortness of breath or cough and complaining of some weakness though. On the blood pressure is 106/73 with a pulse of 112, temperature 98.2. She is 95% . General description is a middle aged female lying in bed in no distress. RESPIRATORY SYSTEM: Unlabored breathing. Clear to auscultation anteriorly. HEART: S1, S2 regular rate and rhythm. ABDOMEN: Soft, no tenderness. LABS: Hemoglobin 8.5,WBC 12.8, potassium is low at 2.8, BUN of 11, creatinine 0.27. DIAGNOSTIC IMPRESSION AND PLAN: 1. Patient with generalized anasarca with fluid overload with question pneumonia clinically not behaving as such. Patient received about 2 weeks of antibiotic from her admission, that should have been enough. In view of persistent diarrhea, we will discontinue the Augmentin. 2. Diarrhea, antibiotic associated. Antibiotic has already been discontinued. We will add Questran for symptomatic relief. Stool for C. dif is negative. Family present at the bedside. All their questions were answered. MARU
[2016-12-17] MEDS: FUROSEMIDE 10 MG/ML 2 ML VIAL IV SCH ×2 (07:54→21:01)
[2016-12-17] MEDS: APIXABAN 5 MG TAB PO SCH ×2 (07:55→21:01)
[2016-12-17] MEDS: POTASSIUM CHLORIDE ER 20 MEQ TAB.ER PO SCH ×4 (07:55→21:01)
[2016-12-17] MEDS: FAMOTIDINE 20 MG TAB PO SCH ×2 (07:55→21:01)
[2016-12-17] MEDS: MEGESTROL 400 MG/10 ML CUP PO SCH (07:56)
[2016-12-17] MEDS: CHOLESTYRAMINE (WITH SUGAR) 4 GM PACKET PO SCH ×2 (07:59→14:38)
[2016-12-17 09:06] LABS: Manual Review Performed
[2016-12-17 09:07] LABS: Polychromasia Present
[2016-12-17] MEDS ORDERED: POTASSIUM CHLORIDE ER 20 MEQ TAB.ER PO STA (09:07)
[2016-12-17] MEDS: POTASSIUM CHLORIDE 10 MEQ in WATER FOR INJECTION 1 100ML.BAG IVPB SCH ×2 (10:07→12:46)
--- NOTE | 2016-12-17 12:44 | PN ---
DATE OF SERVICE: 12/17/2016 She is hemodynamically stable. She is not short of breath. Her blood pressure is 90/57, respiratory rate 18, pulse 108. She is afebrile. HEENT is unremarkable. Chest reveals decreased breath sounds at bases. Cardiovascular system reveals an S1 and S2. Abdomen is soft. There is no edema. White count is 11, hemoglobin of 7.4, sodium 138, potassium 3.4, chloride 107, bicarbonate 30, BUN 9, creatinine of 0.28. IMPRESSION: 1. Ovarian cancer. 2. Medical debility with severe protein calorie malnutrition. 3. Right pleural effusion. Continue supportive care, may require transfusion if she becomes hypotensive. Prognosis at this time is guarded.
[2016-12-17] MEDS: HYDROmorphone 2 MG TAB PO PRN (14:19)
[2016-12-17] MEDS: SODIUM CHLORIDE 0.9% 1,000 ML with POTASSIUM CHLORIDE 30 MEQ IV SCH ×2 (21:01)
[2016-12-18] MEDS: SODIUM CHLORIDE 0.9% 1,000 ML IV SCH (04:30)
[2016-12-18 06:21] LABS: Anisocytosis Moderate; Basophils % (A) 0 %; CH 32.8; CHCM 31.4; Eosinophils % (A) 0 %; HCT 24.7 % (34.0-46.0); HDW 3.31; HGB 7.6 gm/dL (11.4-16.0); Hypochromasia Moderate; Luc # (Auto) 0.07; Luc % (Auto) 1; Lymphocytes # (A) 0.2 k/uL (1.0-4.8); Lymphocytes % (A) 2 %; MCH 32.6 pg (25.0-35.0); MCHC 30.9 g/dL (31.0-37.0); MCV 105.5 fL (80.0-100.0); Macrocytosis Marked; Mean Platelet Volume 7.8; Monocytes # (A) 0.4 k/uL (0-1.0); Monocytes % (A) 3 %; Neutrophils # (A) 9.8 k/uL (1.3-7.7); Neutrophils % (A) 94 %; RBC 2.35 m/uL (3.80-5.40); RDW 21.3 % (11.5-15.5); WBC 10.4 k/uL (3.8-10.6)
[2016-12-18 06:46] LABS: Ionized Calcium 4.5 mg/dL (4.5-5.3)
[2016-12-18 06:57] LABS: ALT 28 U/L (9-52); AST 17 U/L (14-36); Alkaline Phosphatase 90 U/L (38-126); Anion Gap 3 mmol/L; Blood Urea Nitrogen 10 mg/dL (7-17); Calcium 6.9 mg/dL (8.4-10.2); Carbon Dioxide 27 mmol/L (22-30); Chloride 106 mmol/L (98-107); Glucose 80 mg/dL (74-99); Magnesium 1.2 mg/dL (1.6-2.3); Non-African American GFR(MDRD) >60 (>60 ml/min/1.73 sqM); Phosphorous 3.3 mg/dL (2.5-4.5); Potassium 3.9 mmol/L (3.5-5.1); Sodium 136 mmol/L (137-145); Total Bilirubin 0.2 mg/dL (0.2-1.3); Total Protein 4.1 g/dL (6.3-8.2)
--- NOTE | 2016-12-18 07:25 | PN ---
SUBJECTIVE: 61-year-old white female ( ) admitted ( ) with IV Lasix. Has severe hyperkalemia and leg edema and swelling is decreasing but on physical therapy slowly increasing, potassium has been replaced per protocol. CARDIOVASCULAR: S1, S2. LUNGS: Clear. GI: Soft. HEMATOLOGIC: Negative Homans. ASSESSMENT: 1. Pancytopenia. 2. Hypokalemia. 3. Mental status changes. Potassium replacement will be done. Decrease Lasix from 20 to 10 mg q.12. Replace potassium. Increase PT, OT. Possible discharge home in the next 24 to 48 hours.
--- NOTE | 2016-12-18 07:42 | PN ---
DATE OF SERVICE: 12/17/2016 Reason for follow up is antibiotic associated diarrhea. INTERVAL HISTORY: The patient is afebrile. Diarrhea seems to have improved from yesterday after discontinuation of Augmentin and giving her the Questran. Denies any abdominal pain. Denies any significant chest pain. No shortness of breath or cough. On examination, blood pressure was 108/70 with a pulse of 112, temperature 97.7. She is 95% on 2 liters nasal cannula. General description is a middle-aged female lying in bed in no distress. RESPIRATORY SYSTEM: Unlabored breathing. Clear to auscultation anteriorly. HEART: S1, S2. Regular rate and rhythm. ABDOMEN: Soft, no tenderness. LABS: Hemoglobin 7.4, white count of 11 with a BUN of 9, creatinine 0.28. Stool for C. Diff has been negative. Peritoneal fluid culture negative. DIAGNOSTIC IMPRESSION AND PLAN: 1. Patient admitted to hospital with possible infection and a question of pneumonia that has been adequately treated. 2. Patient with antibiotic associated diarrhea responding to discontinuation of antibiotic and Questran. That will be continued. Continue supportive care.
[2016-12-18] MEDS: HYDROCORTISONE SUCCINATE 100 MG/2 ML VIAL IV SCH ×2 (09:21→15:54)
[2016-12-18] MEDS: MEGESTROL 400 MG/10 ML CUP PO SCH (09:22)
[2016-12-18] MEDS: FAMOTIDINE 20 MG TAB PO SCH ×2 (09:22→22:21)
[2016-12-18] MEDS: POTASSIUM CHLORIDE ER 20 MEQ TAB.ER PO SCH ×4 (09:22→22:20)
[2016-12-18] MEDS: APIXABAN 5 MG TAB PO SCH ×2 (09:22→22:20)
[2016-12-18] MEDS: FUROSEMIDE 10 MG/ML 2 ML VIAL IV SCH ×2 (09:22→22:21)
[2016-12-18] MEDS: CHOLESTYRAMINE (WITH SUGAR) 4 GM PACKET PO SCH ×2 (09:23→17:32)
[2016-12-18] MEDS: HYDROmorphone 2 MG TAB PO PRN ×3 (15:52→22:20)
--- NOTE | 2016-12-18 15:56 | P.PN ---
Subjective 61-year-old female sitting up in bed family at the bedside. Patient continues to report feeling short of breath with a slight improvement. Patient states she 's not coughing but feels exhausted short of breath. Additionally patient states she has no appetite is not eating with poor caloric intake. Patient did have an ultrasound did show ascites. The patient had undergone a a paracentesis 48 hours ago with 3.8 L removed. Noted improvement less edematous and sister at the bedside there indicated that they are interested in subacute rehab Objective - Vital Signs Vital signs: Vital Signs Temp 98.4 F 12/18/16 07:00 Pulse 112 H 12/18/16 15:33 Resp 16 12/18/16 15:33 BP 101/68 12/18/16 07:00 Pulse Ox 98 12/18/16 07:00 Intake & Output 12/17/16 12/18/16 12/18/16 18:59 06:59 18:59 Intake Total 360 560 320 Output Total 2075 3200 Balance -1715 560 -2880 Weight 64.4 kg 64.4 kg Intake: IV 320 320 Sodium Chloride 0.9% 1, 320 320 000 ml @ 40 mls/hr IV . Q24H HANH with Potassium Chloride 30 meq Rx#: [id number] Oral 360 240 Output: Urine 875 2600 Uretheral (Regalado) 875 Stool 1200 600 Other: Voiding Method Indwelling Catheter Indwelling Catheter Indwelling Catheter # Voids 1 - Exam Physical exam 61-year-old thin frail cachectic female sitting up in bed Lungs diminished at the bases Heart S1-S2 audible regular Abdomen slightly distended nontender extremities decreased edema to the lower extremities - Labs CBC & Chem 7: 12/18/16 06:10 12/18/16 06:10 Labs: Abnormal Lab Results - Last 24 Hours (Table) 12/18/16 12/18/16 Range/Units 06:10 06:10 RBC 2.35 L (3.80-5.40) m/uL Hgb 7.6 L (11.4-16.0) gm/dL Hct 24.7 L (34.0-46.0) % MCV 105.5 H (80.0-100.0) fL MCHC 30.9 L (31.0-37.0) g/dL RDW 21.3 H (11.5-15.5) % Plt Count 135 L (150-450) k/uL Neutrophils # 9.8 H (1.3-7.7) k/uL Lymphocytes # 0.2 L (1.0-4.8) k/uL Sodium 136 L (137-145) mmol/L Creatinine 0.30 L (0.52-1.04) mg/dL Calcium 6.9 L (8.4-10.2) mg/dL Magnesium 1.2 L (1.6-2.3) mg/dL Total Protein 4.1 L (6.3-8.2) g/dL Albumin 1.9 L (3.5-5.0) g/dL Assessment and Plan Plan: Impression Present on admission Severe protein calorie malnutrition suspect due to poor caloric intake and ovarian cancer Toxic metabolic encephalopathy present on admission now resolved Recent diagnosis of uterine and Ovarian cancer currently being treated at [facility] Pancytopenia due to chemotherapy Hypo-tension Small right pleural effusion Present on admission clinical dehydration Present on admission abdominal ascites likely due to ovarian cancer Present on admission isolated one episode cardiac arrhythmia nonsustained V. tach resolved Present on admission hypotensive necessitating ICU admission received vasopressors resolved A recent diagnosis of pulmonary emboli on rust Recurrent abdominal ascites Bilateral pleural effusions right greater than the left Metastatic ovarian cancer Metastatic adenocarcinoma of ovary Status status post paracentesis a second 3.8 L removed Per advance directives is a no CODE STATUS Plan Continue current plan of care Continue recommendations from consulting physicians reviewed and recognized appreciated DVT and gi prophylaxis Brent bandage pursuing the discharge plan family is requesting ECF placement equist will be restarted when appropriate he above dictated assessment and findings were discussed with dr schwab . Impression and the plan of care have been dictated as directed. Christine Graves nurse practitioner acting as a scribe for dr schwab
[2016-12-19] MEDS: HYDROCORTISONE SUCCINATE 100 MG/2 ML VIAL IV SCH ×3 (00:15→22:10)
[2016-12-19] MEDS: SODIUM CHLORIDE 0.9% 1,000 ML IV SCH ×2 (02:55→23:38)
[2016-12-19] MEDS: SODIUM CHLORIDE 0.9% 1,000 ML with POTASSIUM CHLORIDE 30 MEQ IV SCH ×4 (02:55→23:35)
[2016-12-19 06:44] LABS: Anion Gap 2 mmol/L; Blood Urea Nitrogen 10 mg/dL (7-17); Calcium 7.1 mg/dL (8.4-10.2); Carbon Dioxide 28 mmol/L (22-30); Chloride 105 mmol/L (98-107); Glucose 91 mg/dL (74-99); Magnesium 1.2 mg/dL (1.6-2.3); Non-African American GFR(MDRD) >60 (>60 ml/min/1.73 sqM); Phosphorous 3.5 mg/dL (2.5-4.5); Potassium 3.6 mmol/L (3.5-5.1); Sodium 135 mmol/L (137-145)
--- NOTE | 2016-12-19 06:46 | PN ---
DATE OF SERVICE: 12/18/2016 Reason for followup is possible pneumonia and antibiotic associated diarrhea. INTERVAL HISTORY: The patient is afebrile. She has been breathing comfortably. No significant chest pain or cough. No abdominal pain. Diarrhea has slowed down. On examination, blood pressure 96/64 with a pulse of 112, temperature 98.2. She is 99% on room air. General description is a middle aged female lying in bed in no distress. RESPIRATORY SYSTEM: Unlabored breathing. Clear to auscultation anteriorly. HEART: S1, S2. Regular rate and rhythm. ABDOMEN: Soft. No tenderness. LABS: Hemoglobin is 7.6, white count 10.4 with a BUN of 10, creatinine 0.30. DIAGNOSTIC IMPRESSION AND PLAN: 1. Patient admitted to the hospital with possible sepsis and concern for pneumonia. Underlying infection has been treated, currently off antibiotic therapy. 2. Patient who did have significant diarrhea over the weekend, more likely antibiotic associated. Stool for Clostridium difficile is negative. She has been on oral Questran that may be continued for another day or 2. Family present at beside. Their questions were answered.
[2016-12-19] MEDS: HYDROmorphone 2 MG TAB PO PRN ×3 (08:00→22:18)
[2016-12-19] MEDS: APIXABAN 5 MG TAB PO SCH ×2 (08:01→22:08)
[2016-12-19] MEDS: FUROSEMIDE 10 MG/ML 2 ML VIAL IV SCH ×2 (08:02→22:09)
[2016-12-19] MEDS: MEGESTROL 400 MG/10 ML CUP PO SCH (08:02)
[2016-12-19] MEDS: FAMOTIDINE 20 MG TAB PO SCH ×2 (08:02→22:09)
[2016-12-19] MEDS: POTASSIUM CHLORIDE ER 20 MEQ TAB.ER PO SCH ×4 (08:02→23:41)
--- NOTE | 2016-12-19 09:23 | P.PN ---
Subjective This is a 61-year-old female being evaluated and examined today on the fifth floor.. The patient came in to the emergency room for mental status changes. Patient was accompanied by her and son who stated that she could not get up this morning and was not being herself. Patient has been much less active, her intake has decreased and she has not been able to communicate with her family. The patient does have a history of ovarian cancel cancer and some possible abdominal metastasis per the family. She currently is being seen by, institute and each right those records are not readily available at this time. Patient states her last chemotherapy treatment was about 2 weeks ago. She denies having any fevers or any obvious signs of infection, however she has not able to provide much history. Her blood work showed pancytopenia as well as electrolyte abnormalities including hypokalemia. She was also dehydrated. The patient was started on IV fluids and her electrolytes were replaced. The patient does have a Mediport in place. Oncology was put on consult as well. ultrasound of the abdomen showed ascites in all 4 quadrant, patient went for paracentesis, 3.8 L of serous fluid was removed. Upon examination the patient is resting up in bed on room air with family at bedside. Patient does get short of breath with exertion however it has significantly improved. She was still continued to require breathing treatments as needed. She denies any cough or congestion at this time. She continues to appears very weak and cachectic. her diarrhea seems to be improving. She states her full feeling in the abdomen has slightly decreased today however she is still extremely uncomfortable. Swelling bilateral lower extremities slightly decreased today. Patient's appetite has improved today. Objective - Vital Signs Vital signs: Vital Signs Temp 98.4 F 12/18/16 07:00 Pulse 112 H 12/18/16 08:00 Resp 16 12/18/16 08:00 BP 101/68 12/18/16 07:00 Pulse Ox 98 12/18/16 07:00 Intake & Output 12/17/16 12/18/16 12/18/16 18:59 06:59 18:59 Intake Total 360 560 Output Total 2075 1500 Balance -1715 560 -1500 Weight 64.4 kg 64.4 kg Intake: IV 320 Sodium Chloride 0.9% 1, 320 000 ml @ 40 mls/hr IV . Q24H HANH with Potassium Chloride 30 meq Rx#: [id number] Oral 360 240 Output: Urine 875 1300 Uretheral (Regalado) 875 Stool 1200 200 Other: Voiding Method Indwelling Catheter Indwelling Catheter Indwelling Catheter # Voids 1 - Exam GENERAL EXAM: Alert, comfortable in no apparent distress. HEAD: Normocephalic. EYES: Normal reaction of pupils, equal size. NOSE: Clear with pink turbinates. THROAT: No erythema or exudates. NECK: No masses, no JVD. CHEST: No chest wall deformity. LUNGS: Equal air entry with no crackles, wheeze, rhonchi or dullness. Bases diminished CVS: S1 and S2 normal with no audible mumurs, irregular rhythm. ABDOMEN: No hepatosplenomegaly, normal bowel sounds, no guarding or rigidity. Mildly distended EXTREMITIES: +2 edema noted, pedal pulses palpable. SKIN: No rashes CENTRAL NERVOUS SYSTEM: No focal deficits, tone is weak in all 4 extremities. - Labs CBC & Chem 7: 12/18/16 06:10 12/18/16 06:10 Labs: Abnormal Lab Results - Last 24 Hours (Table) 12/18/16 12/18/16 Range/Units 06:10 06:10 RBC 2.35 L (3.80-5.40) m/uL Hgb 7.6 L (11.4-16.0) gm/dL Hct 24.7 L (34.0-46.0) % MCV 105.5 H (80.0-100.0) fL MCHC 30.9 L (31.0-37.0) g/dL RDW 21.3 H (11.5-15.5) % Plt Count 135 L (150-450) k/uL Neutrophils # 9.8 H (1.3-7.7) k/uL Lymphocytes # 0.2 L (1.0-4.8) k/uL Sodium 136 L (137-145) mmol/L Creatinine 0.30 L (0.52-1.04) mg/dL Calcium 6.9 L (8.4-10.2) mg/dL Magnesium 1.2 L (1.6-2.3) mg/dL Total Protein 4.1 L (6.3-8.2) g/dL Albumin 1.9 L (3.5-5.0) g/dL Microbiology - Last 24 Hours (Table) 12/12/16 10:50 Gram Stain - Final Ascites Fluid Body Fluid Culture - Final Assessment and Plan Plan: Assessment Small right pleural effusion Hypotension Pancytopenia due to chemotherapy Hypokalemia Dehydration Altered mental status Ovarian cancer, currently being treated at, [facility] in [place]. Severe protein-calorie malnutrition Toxic metabolic encephalopathy, now resolved Abdominal ascites Lab Patient could be discharged from a pulmonary/critical care standpoint in the near future. Patient is supposed to go to [facility] for rehab. Medications have been reviewed and will be continued. We will add nebulizer treatments as needed to help with her shortness of breath. She occasionally still gets short of breath due to ascites. Electrolytes replaced per protocol. Appreciate input from oncology. Infectious disease also on consult. Dietitian on consult. GI and DVT prophylactics. We will continue to monitor her pleural effusions closely. We will continue to monitor labs/results and adjust treatment as necessary. I performed an examination of the patient and discussed their management with the nurse practitioner. I have reviewed the nurse practitioner's note and agree with the documented findings and plan of care.
[2016-12-19] MEDS: CHOLESTYRAMINE (WITH SUGAR) 4 GM PACKET PO SCH ×2 (10:24→18:07)
--- NOTE | 2016-12-19 10:53 | P.PN ---
Subjective This is a 61-year-old female being evaluated and examined today on the fifth floor.. The patient came in to the emergency room for mental status changes. Patient was accompanied by her and son who stated that she could not get up this morning and was not being herself. Patient has been much less active, her intake has decreased and she has not been able to communicate with her family. The patient does have a history of ovarian cancel cancer and some possible abdominal metastasis per the family. She currently is being seen by, institute and each right those records are not readily available at this time. Patient states her last chemotherapy treatment was about 2 weeks ago. She denies having any fevers or any obvious signs of infection, however she has not able to provide much history. Her blood work showed pancytopenia as well as electrolyte abnormalities including hypokalemia. She was also dehydrated. The patient was started on IV fluids and her electrolytes were replaced. The patient does have a Mediport in place. Oncology was put on consult as well. ultrasound of the abdomen showed ascites in all 4 quadrant, patient went for paracentesis, 3.8 L of serous fluid was removed. Upon examination the patient is resting up in bed on room air with family at bedside. Patient does get short of breath with exertion however it has significantly improved. She was still continued to require breathing treatments as needed. She denies any cough or congestion at this time. She continues to appears very weak and cachectic. her diarrhea seems to be improving. She states her full feeling in the abdomen has slightly increased today yesterday, she is still extremely uncomfortable. Swelling bilateral lower extremities slightly increased today. Patient's appetite has remained stable today. Patient states she is feeling like she could be discharged in the near future to [facility]. Objective - Vital Signs Vital signs: Vital Signs Temp 98.0 F 12/19/16 07:00 Pulse 113 H 12/19/16 07:00 Resp 16 12/19/16 07:00 BP 87/65 12/19/16 07:00 Pulse Ox 100 12/19/16 07:00 Intake & Output 12/18/16 12/19/16 12/19/16 18:59 06:59 18:59 Intake Total 560 910 Output Total 3600 200 Balance -3040 710 Weight 64.4 kg Intake: IV 320 320 Sodium Chloride 0.9% 1, 320 320 000 ml @ 40 mls/hr IV . Q24H HANH with Potassium Chloride 30 meq Rx#: [id number] Oral 240 590 Output: Urine 3000 Uretheral (Regalado) 400 Stool 600 200 Other: Voiding Method Indwelling Catheter Indwelling Catheter # Voids 1 - Exam GENERAL EXAM: Alert, comfortable in no apparent distress. HEAD: Normocephalic. EYES: Normal reaction of pupils, equal size. NOSE: Clear with pink turbinates. THROAT: No erythema or exudates. NECK: No masses, no JVD. CHEST: No chest wall deformity. LUNGS: Equal air entry with no crackles, wheeze, rhonchi or dullness. Bases diminished CVS: S1 and S2 normal with no audible mumurs, irregular rhythm. ABDOMEN: No hepatosplenomegaly, normal bowel sounds, no guarding or rigidity. Mildly distended EXTREMITIES: +2 edema noted, pedal pulses palpable. SKIN: No rashes CENTRAL NERVOUS SYSTEM: No focal deficits, tone is weak in all 4 extremities. - Labs CBC & Chem 7: 12/18/16 06:10 12/19/16 06:10 Labs: Abnormal Lab Results - Last 24 Hours (Table) 12/19/16 Range/Units 06:10 Sodium 135 L (137-145) mmol/L Creatinine 0.30 L (0.52-1.04) mg/dL Calcium 7.1 L (8.4-10.2) mg/dL Magnesium 1.2 L (1.6-2.3) mg/dL Assessment and Plan Plan: Assessment Small right pleural effusion Hypotension Pancytopenia due to chemotherapy Hypokalemia Dehydration Altered mental status Ovarian cancer, currently being treated at, [facility] in [place]. Severe protein-calorie malnutrition Toxic metabolic encephalopathy, now resolved Abdominal ascites Lab Patient could be discharged from a pulmonary/critical care standpoint in the near future. Patient is supposed to go to [facility] for rehab. Medications have been reviewed and will be continued. We will continue nebulizer treatments as needed to help with her shortness of breath. She occasionally still gets short of breath due to ascites. Electrolytes replaced per protocol. Appreciate input from oncology. Infectious disease also on consult. Dietitian on consult. GI and DVT prophylactics. We will continue to monitor her pleural effusions closely. We will continue to monitor labs/results and adjust treatment as necessary. I performed an examination of the patient and discussed their management with the nurse practitioner. I have reviewed the nurse practitioner's note and agree with the documented findings and plan of care.
--- NOTE | 2016-12-19 12:12 | PN ---
DATE OF SERVICE: 12/19/2016 REASON FOR FOLLOWUP: 1. Pneumonia. 2. Antibiotic-associated diarrhea, improved. INTERVAL HISTORY: The patient is afebrile. She is breathing comfortably. Denies significant chest pain. No cough. No abdominal pain. No nausea, vomiting. Overall diarrhea has improved. On examination, blood pressure 87/675 with a pulse of 113, temperature 98. She is 100% on room air. General description is an elderly female, lying in bed in no distress. HEENT EXAMINATION: Pallor. Oral mucous membranes dry. LUNGS: Unlabored breath. Clear to auscultation, anteriorly. HEART: S1, S2. Regular rate and rhythm. ABDOMEN: Soft. No tenderness. LABS: White count normal at 10.4 as of yesterday with a BUN of 10, creatinine 0.30. DIAGNOSTIC IMPRESSION AND PLAN: 1. Patient admitted to the hospital with multiple symptoms possible pneumonia adequately treated. She is off antibiotics for a couple of days now with no worsening respiratory symptoms and white count remains to be normal. 2. Patient's antibiotic-associated diarrhea responding to discontinuation of antibiotics and Questran that may be continued for another day or 2. However, discontinue once her diarrhea resolves. Family is present at bedside. No further Infectious Disease issues. Hence will sign off. If any questions regarding her care to call us back. MARU
[2016-12-19] MEDS: MAGNESIUM SULFATE-D5W PMX 1 GM in DEXTROSE/WATER 1 100ML.BAG IVPB SCH ×3 (13:12→15:49)
--- NOTE | 2016-12-19 15:25 | P.PN ---
Subjective 61-year-old female being seen and examined. This been no new events. The discharge plan is in progress. Patients being seen by case management coordinator and waiting insurance authorization [facility] [place] patient's legs remain less edematous. Objective - Vital Signs Vital signs: Vital Signs Temp 98.0 F 12/19/16 07:00 Pulse 113 H 12/19/16 07:00 Resp 16 12/19/16 07:00 BP 87/65 12/19/16 07:00 Pulse Ox 100 12/19/16 07:00 Intake & Output 12/18/16 12/19/16 12/19/16 18:59 06:59 18:59 Intake Total 560 910 Output Total 3600 200 Balance -3040 710 Weight 64.4 kg Intake: IV 320 320 Sodium Chloride 0.9% 1, 320 320 000 ml @ 40 mls/hr IV . Q24H HANH with Potassium Chloride 30 meq Rx#: [id number] Oral 240 590 Output: Urine 3000 Uretheral (Regalado) 400 Stool 600 200 Other: Voiding Method Indwelling Catheter Indwelling Catheter Indwelling Catheter # Voids 1 - Exam Physical exam 61-year-old thin frail cachectic female sitting up in bed Lungs diminished at the bases Heart S1-S2 audible regular Abdomen slightly distended nontender extremities decreased edema to the lower extremities - Labs CBC & Chem 7: 12/18/16 06:10 12/19/16 06:10 Labs: Abnormal Lab Results - Last 24 Hours (Table) 12/19/16 Range/Units 06:10 Sodium 135 L (137-145) mmol/L Creatinine 0.30 L (0.52-1.04) mg/dL Calcium 7.1 L (8.4-10.2) mg/dL Magnesium 1.2 L (1.6-2.3) mg/dL Assessment and Plan Plan: Impression Present on admission Severe protein calorie malnutrition suspect due to poor caloric intake and ovarian cancer Toxic metabolic encephalopathy present on admission now resolved Recent diagnosis of uterine and Ovarian cancer currently being treated at [facility] in [place] Pancytopenia due to chemotherapy Hypo-tension Small right pleural effusion Present on admission clinical dehydration Present on admission abdominal ascites likely due to ovarian cancer Present on admission isolated one episode cardiac arrhythmia nonsustained V. tach resolved Present on admission hypotensive necessitating ICU admission received vasopressors resolved A recent diagnosis of pulmonary emboli on [facility] Recurrent abdominal ascites Bilateral pleural effusions right greater than the left Metastatic ovarian cancer Metastatic adenocarcinoma of ovary Status status post paracentesis a second 3.8 L removed Per advance directives is a no CODE STATUS Electrolyte abnormality hypo-magnesium hypo-kalemia Plan Continue current plan of care Continue recommendations from consulting physicians reviewed and recognized appreciated DVT and gi prophylaxis Brent bandage pursuing the discharge plan family is requesting ECF placement Magnesium and potassium replaced Will need to taper the Solu-Cortef currently on 25 IV every 8 he above dictated assessment and findings were discussed with dr schwab . Impression and the plan of care have been dictated as directed. Christine Graves nurse practitioner acting as a scribe for dr schwab
[2016-12-19] MEDS: MAGNESIUM OXIDE 400 MG TAB PO SCH ×2 (18:07→22:09)
[2016-12-19] MEDS ORDERED: LORazepam 2 MG/ML SYRINGE IV PRN (23:13)
[2016-12-20 08:06] LABS: Anion Gap 2 mmol/L; Blood Urea Nitrogen 11 mg/dL (7-17); Calcium 7.2 mg/dL (8.4-10.2); Carbon Dioxide 28 mmol/L (22-30); Chloride 105 mmol/L (98-107); Glucose 103 mg/dL (74-99); Magnesium 1.7 mg/dL (1.6-2.3); Non-African American GFR(MDRD) >60 (>60 ml/min/1.73 sqM); Phosphorous 3.1 mg/dL (2.5-4.5); Sodium 135 mmol/L (137-145)
[2016-12-20 08:20] LABS: Anisocytosis Moderate; Basophils % (A) 0 %; CH 33.7; CHCM 32.2; Eosinophils % (A) 0 %; HCT 24.1 % (34.0-46.0); HDW 3.48; HGB 7.7 gm/dL (11.4-16.0); Hypochromasia Slight; Luc # (Auto) 0.08; Luc % (Auto) 1; Lymphocytes # (A) 0.2 k/uL (1.0-4.8); Lymphocytes % (A) 2 %; MCH 33.9 pg (25.0-35.0); MCHC 32.1 g/dL (31.0-37.0); MCV 105.6 fL (80.0-100.0); Macrocytosis Marked; Mean Platelet Volume 7.5; Monocytes # (A) 0.3 k/uL (0-1.0); Monocytes % (A) 4 %; Neutrophils # (A) 7.8 k/uL (1.3-7.7); Neutrophils % (A) 93 %; Poikilocytosis Slight; RBC 2.28 m/uL (3.80-5.40); WBC 8.4 k/uL (3.8-10.6); WBC (Perox) 7.86
[2016-12-20] MEDS: FAMOTIDINE 20 MG TAB PO SCH ×2 (08:59→22:05)
[2016-12-20] MEDS: FUROSEMIDE 10 MG/ML 2 ML VIAL IV SCH (08:59)
[2016-12-20] MEDS: HYDROCORTISONE SUCCINATE 100 MG/2 ML VIAL IV SCH (08:59)
[2016-12-20] MEDS: MEGESTROL 400 MG/10 ML CUP PO SCH (08:59)
[2016-12-20] MEDS: MAGNESIUM OXIDE 400 MG TAB PO SCH ×3 (08:59→22:05)
[2016-12-20] MEDS: POTASSIUM CHLORIDE ER 20 MEQ TAB.ER PO SCH ×3 (08:59→22:04)
[2016-12-20] MEDS: APIXABAN 5 MG TAB PO SCH ×2 (09:00→22:05)
[2016-12-20 10:30] LABS: Manual Review Performed; Toxic Vacuolation Present
[2016-12-20 10:31] LABS: Toxic Granulation Present
--- NOTE | 2016-12-20 10:48 | P.PN ---
Subjective This is a 61-year-old female being evaluated and examined today on the fifth floor.. The patient came in to the emergency room for mental status changes. Patient was accompanied by her and son who stated that she could not get up this morning and was not being herself. Patient has been much less active, her intake has decreased and she has not been able to communicate with her family. The patient does have a history of ovarian cancel cancer and some possible abdominal metastasis per the family. She currently is being seen by, institute and each right those records are not readily available at this time. Patient states her last chemotherapy treatment was about 2 weeks ago. She denies having any fevers or any obvious signs of infection, however she has not able to provide much history. Her blood work showed pancytopenia as well as electrolyte abnormalities including hypokalemia. She was also dehydrated. The patient was started on IV fluids and her electrolytes were replaced. The patient does have a Mediport in place. Oncology was put on consult as well. ultrasound of the abdomen showed ascites in all 4 quadrant, patient went for paracentesis, 3.8 L of serous fluid was removed. Upon examination the patient is resting up in bed on room air with family at bedside. Patient does get short of breath with exertion however it has significantly improved. She was still continued to require breathing treatments as needed. She denies any cough or congestion at this time. She continues to appears very weak and cachectic. her diarrhea seems to be improving. She states her full feeling in the abdomen has maintained the same today as yesterday, she is still extremely uncomfortable. Swelling bilateral lower extremities remains the same today. Patient's appetite has remained stable today. Patient states she is feeling like she could be discharged in the near future to [facility]. Currently is waiting on authorization. Objective - Vital Signs Vital signs: Vital Signs Temp 97.6 F 12/20/16 07:00 Pulse 104 H 12/20/16 07:00 Resp 16 12/20/16 07:00 BP 87/59 12/20/16 07:00 Pulse Ox 99 12/20/16 07:00 Intake & Output 12/19/16 12/20/16 12/20/16 18:59 06:59 18:59 Intake Total 1640 Output Total 1300 Balance -1300 1640 Weight 66.5 kg Intake: IV 360 Sodium Chloride 0.9% 1, 360 000 ml @ 40 mls/hr IV . Q24H HANH with Potassium Chloride 30 meq Rx#: [id number] Oral 1280 Output: Urine 1300 Uretheral (Regalado) 300 Other: Voiding Method Indwelling Catheter Toilet # Voids 1 3 - Exam GENERAL EXAM: Alert, comfortable in no apparent distress. HEAD: Normocephalic. EYES: Normal reaction of pupils, equal size. NOSE: Clear with pink turbinates. THROAT: No erythema or exudates. NECK: No masses, no JVD. CHEST: No chest wall deformity. LUNGS: Equal air entry with no crackles, wheeze, rhonchi or dullness. Bases diminished CVS: S1 and S2 normal with no audible mumurs, irregular rhythm. ABDOMEN: No hepatosplenomegaly, normal bowel sounds, no guarding or rigidity. Mildly distended EXTREMITIES: +2 edema noted, pedal pulses palpable. SKIN: No rashes CENTRAL NERVOUS SYSTEM: No focal deficits, tone is weak in all 4 extremities. - Labs CBC & Chem 7: 12/20/16 07:30 12/20/16 07:30 Labs: Abnormal Lab Results - Last 24 Hours (Table) 12/20/16 12/20/16 Range/Units 07:30 07:30 RBC 2.28 L (3.80-5.40) m/uL Hgb 7.7 L (11.4-16.0) gm/dL Hct 24.1 L (34.0-46.0) % MCV 105.6 H (80.0-100.0) fL RDW 22.0 H (11.5-15.5) % Plt Count 137 L (150-450) k/uL Neutrophils # 7.8 H (1.3-7.7) k/uL Lymphocytes # 0.2 L (1.0-4.8) k/uL Sodium 135 L (137-145) mmol/L Creatinine 0.28 L (0.52-1.04) mg/dL Glucose 103 H (74-99) mg/dL Calcium 7.2 L (8.4-10.2) mg/dL Assessment and Plan Plan: Assessment Small right pleural effusion Hypotension Pancytopenia due to chemotherapy Hypokalemia Dehydration Altered mental status Ovarian cancer, currently being treated at, [facility] in [place]. Severe protein-calorie malnutrition Toxic metabolic encephalopathy, now resolved Abdominal ascites Lab Patient could be discharged from a pulmonary/critical care standpoint in the near future. Currently waiting on authorization. Patient is supposed to go to [facility] for rehab. Medications have been reviewed and will be continued. We will continue nebulizer treatments as needed to help with her shortness of breath. She occasionally still gets short of breath due to ascites. Electrolytes replaced per protocol. Appreciate input from oncology. Infectious disease also on consult. Dietitian on consult. GI and DVT prophylactics. We will continue to monitor her pleural effusions closely. We will continue to monitor labs/results and adjust treatment as necessary. I performed an examination of the patient and discussed their management with the nurse practitioner. I have reviewed the nurse practitioner's note and agree with the documented findings and plan of care.
[2016-12-20] MEDS: CHOLESTYRAMINE (WITH SUGAR) 4 GM PACKET PO SCH ×2 (11:03→18:14)
--- NOTE | 2016-12-20 14:28 | P.DS ---
Providers Date of admission: 12/04/16 19:00 Expected date of discharge: 12/28/16 Attending physician: Hiram Becerril Consults: 12/04/16 20:04 Consult Physician Stat Consulting Provider: Daryl Bergman Consult Reason/Comments: ICU patient. pancytopenia. Do you want consulting provider notified?: Yes 12/05/16 07:58 Consult Physician Routine Consulting Provider: Augusta Avalos Consult Reason/Comments: infection/leukopenia Do you want consulting provider notified?: Yes 12/08/16 12:55 Consult Physician Routine Consulting Provider: Wilber Schaffer Consult Reason/Comments: 16 beat of VTAC Do you want consulting provider notified?: Yes 12/14/16 08:01 Consult Physician Stat Consulting Provider: Saul Powell Consult Reason/Comments: lymphedema Do you want consulting provider notified?: Yes Primary care physician: [facility] Course: 61-year-old female admitted on the day of admission to the emergency room with acute mental status changes. Patient is family indicates that the patient has had decreased endurance poor oral intake inability to participate in ADLs. Patient does have a history of ovarian cancer with possible abdominal metastasis. Patient had been taking chemotherapy through [facility] in [place]. Her last chemo treatment was 2 weeks prior. Patient stated that she had been not experiencing any fever or chills. Had just noted after her chemo not able to tolerate any liquids on admission the patient was pancytopenic with electrolyte morality including hypokalemia. Patient also was dehydrated. Patient was started on IV fluids and electrolytes were replaced. Patient does have a MediPort in place. Oncology consultation as well as's pulmonary was requested. On admission patient was thin weak and cachectic patient was treated for metabolic encephalopathy patient was noted to be hypotensive on admission systolic blood pressure in the 80s to 90s patient was treated for hypovolemic shock secondary to poor oral intake fluid bolus with a transfer to the intensive care unit with IV Levophed patient was stabilized and was able to be transferred out of the intensive care unit to the oncology unit patient did undergo a paracentesis for the ascites with 3.8 L obtained. Patient also started on TPN for nutritional support with nutritional supplements. Patient was treated for severe protein calorie malnutrition due to poor caloric intake. Patient had an involuntary weight loss the BMI of 22. Over the course of hospitalization patient's edema to the lower extremity significantly improved with the IV Lasix. Physical and occupational therapy did participate in the plan of care and patient was able to ambulate short distance from bed to bathroom. Patient's appetite also improved. She stated that she felt less weak. Oncology did see the patient and they indicated the patient could follow-up with her WILDLIFE PROTECTOR at [facility] Dr. Gonzalez. The family made a decision on December 28 that the patient would be discharged to home set up for home care with PT OT. Initially the family had been interested in sending patient to a rehab center window caser and social services counselor to pursue that option. Due to insurance issues patient could not be transferred to subacute rehab within the community. The window casersoftware qa manager worker did pursue placing the patient in a rehab outside of the [facility] again insurance issues were needing to be addressed. the social services counselor did contact someone at [employer] who is a contact center professional for precertification findings indicate the patient did not have coverage for subacute rehab the patient and spouse and son at the bedside on December 28 indicate that they want hospice care they are requesting a hospice referral the patient and spouse indicate that they are interested in comfort care they are not going to pursue any further treatment may verbalizing wanting a referral for hospice Impression Present on admission Severe protein calorie malnutrition suspect due to poor caloric intake and ovarian cancer Toxic metabolic encephalopathy present on admission now resolved Recent diagnosis of uterine and Ovarian cancer currently being treated at [facility] in [place] Pancytopenia due to chemotherapy Hypo-tension Small right pleural effusion Present on admission clinical dehydration Present on admission abdominal ascites likely due to ovarian cancer Present on admission isolated one episode cardiac arrhythmia nonsustained V. tach resolved Present on admission hypotensive necessitating ICU admission received vasopressors resolved A recent diagnosis of pulmonary emboli on [facility] Recurrent abdominal ascites Bilateral pleural effusions right greater than the left Metastatic ovarian cancer Metastatic adenocarcinoma of ovary Status status post paracentesis a second 3.8 L removed Per advance directives is a no CODE STATUS Electrolyte abnormality hypo-magnesium hypo-kalemia Present on admission hypovolemic shock systolic pressure in the 60s suspect due to recent chemotherapy treatment with poor oral intake clinical dehydrationI performed an examination of the patient and discussed their management with the nurse practitioner. I have reviewed the nurse practitioner's note and agree with the documented findings and plan of care. Patient Condition at Discharge: Serious Plan - Discharge Summary New Discharge Prescriptions: Atropine Sulfate [Atropine Sulfate 1%] 2 drop SUBLINGUAL Q4H #30 ml HYDROmorphone [Dilaudid] 4 mg PO Q4HR PRN #30 tab PRN Reason: Pain Scale 6 To 10 HYDROmorphone [Dilaudid] 4 mg PO Q4HR PRN #30 tab PRN Reason: Pain Control LORazepam [Ativan] 1 mg PO Q4H PRN #30 tab PRN Reason: Anxiety Megestrol [Megace] 80 mg PO DAILY #60 tablet MORPHINE ORAL SOLN 20mg/mL [Roxanol Oral Soln Conc 20MG/ML] 20 mg PO Q4H PRN # 60 ml PRN Reason: Moderate Pain Discharge Medication List Apixaban [Eliquis] 5 mg PO BID 12/04/16 [History] Docusate [Colace] 100 mg PO DAILY PRN 12/04/16 [History] Acetaminophen Tab [Tylenol] 650 mg PO Q6HR PRN #0 tab 12/20/16 [Rx] Apixaban [Eliquis] 5 mg PO BID tab 12/20/16 [Rx] Furosemide [Lasix] 20 mg PO BID@0900,1600 tab 12/20/16 [Rx] HYDROmorphone [Dilaudid] 4 mg PO Q4HR PRN #30 tab 12/20/16 [Rx] Atropine Sulfate [Atropine Sulfate 1%] 2 drop SUBLINGUAL Q4H #30 ml 12/28/16 [Rx ] HYDROmorphone [Dilaudid] 4 mg PO Q4HR PRN #30 tab 12/28/16 [Rx] LORazepam [Ativan] 1 mg PO Q4H PRN #30 tab 12/28/16 [Rx] MORPHINE ORAL SOLN 20mg/mL [Roxanol Oral Soln Conc 20MG/ML] 20 mg PO Q4H PRN # 60 ml 12/28/16 [Rx] Megestrol [Megace] 80 mg PO DAILY #60 tablet 12/28/16 [Rx] Follow up Appointment(s)/Referral(s): Dandre Valentin DO [Primary Care Provider] - 1-2 days Daryl Bergman MD [STAFF PHYSICIAN] - 1 Week Hiram Becerril MD [STAFF PHYSICIAN] - 1 Week Activity/Diet/Wound Care/Special Instructions: Hospice care referral Discharge Disposition: HOME WITH HOSPICE
[2016-12-20] MEDS: FUROSEMIDE 20 MG TAB PO SCH (17:01)
[2016-12-20] MEDS: HYDROCORTISONE 20 MG TAB PO SCH (22:05)
[2016-12-20] MEDS: SODIUM CHLORIDE 0.9% 1,000 ML IV SCH (22:05)
[2016-12-20] MEDS: SODIUM CHLORIDE 0.9% 1,000 ML with POTASSIUM CHLORIDE 30 MEQ IV SCH ×2 (22:42)
[2016-12-21] MEDS: FAMOTIDINE 20 MG TAB PO SCH ×2 (08:23→22:04)
[2016-12-21] MEDS: HYDROCORTISONE 20 MG TAB PO SCH ×2 (08:23→22:04)
[2016-12-21] MEDS: APIXABAN 5 MG TAB PO SCH ×2 (08:23→22:03)
[2016-12-21] MEDS: FUROSEMIDE 20 MG TAB PO SCH ×2 (08:23→16:07)
[2016-12-21] MEDS: MEGESTROL 400 MG/10 ML CUP PO SCH (08:24)
[2016-12-21] MEDS: MAGNESIUM OXIDE 400 MG TAB PO SCH ×3 (08:24→22:04)
[2016-12-21] MEDS: POTASSIUM CHLORIDE ER 20 MEQ TAB.ER PO SCH ×4 (08:24→22:03)
[2016-12-21] MEDS: HYDROmorphone 2 MG TAB PO PRN ×3 (08:43→23:43)
[2016-12-21] MEDS: CHOLESTYRAMINE (WITH SUGAR) 4 GM PACKET PO SCH ×2 (10:00→22:00)
--- NOTE | 2016-12-21 12:57 | P.PN ---
Progress Note - Text 61-year-old female seen and examined. Spouse at the bedside. Waiting insurance clearance for patient to be transferred to subacute rehab pending insurance coverage. The patient and the spouse are aware of the discharge plans. Continue with the current plan of care when appropriate patient will be transferred to subacute pending insurance issues The above dictated assessment and findings were discussed with dr schwab. Impression and the plan of care have been dictated as directed. Christine Graves nurse practitioner acting as a scribe for dr schwab
--- NOTE | 2016-12-21 13:20 | P.PN ---
Subjective This is a 61-year-old female being evaluated and examined today on the fifth floor.. The patient came in to the emergency room for mental status changes. Patient was accompanied by her and son who stated that she could not get up this morning and was not being herself. Patient has been much less active, her intake has decreased and she has not been able to communicate with her family. The patient does have a history of ovarian cancel cancer and some possible abdominal metastasis per the family. She currently is being seen by, institute and each right those records are not readily available at this time. Patient states her last chemotherapy treatment was about 2 weeks ago. She denies having any fevers or any obvious signs of infection, however she has not able to provide much history. Her blood work showed pancytopenia as well as electrolyte abnormalities including hypokalemia. She was also dehydrated. The patient was started on IV fluids and her electrolytes were replaced. The patient does have a Mediport in place. Oncology was put on consult as well. ultrasound of the abdomen showed ascites in all 4 quadrant, patient went for paracentesis, 3.8 L of serous fluid was removed. Upon examination the patient is resting up in bed on room air with family at bedside. Patient does get short of breath with exertion however it has significantly improved. She was still continued to require breathing treatments as needed. She denies any cough or congestion at this time. She continues to appears very weak and cachectic. her diarrhea seems to be improving. She states her full feeling in the abdomen has maintained the same today as yesterday, she is still extremely uncomfortable. Swelling bilateral lower extremities remains the same today. Patient's appetite has remained stable today. Patient states she is feeling like she could be discharged in the near future to [facility]. Continues to wait on insurance authorization for transfer to nursing facility. Objective - Vital Signs Vital signs: Vital Signs Temp 97.5 F L 12/21/16 07:00 Pulse 106 H 12/21/16 07:00 Resp 16 12/21/16 07:00 BP 93/65 12/21/16 07:00 Pulse Ox 98 12/21/16 07:00 Intake & Output 12/20/16 12/21/16 12/21/16 18:59 06:59 18:59 Intake Total 950 Balance 950 Weight 66.5 kg Intake: IV 360 Sodium Chloride 0.9% 1, 360 000 ml @ 40 mls/hr IV . Q24H HANH with Potassium Chloride 30 meq Rx#: [id number] Oral 590 Other: Voiding Method Toilet Toilet Toilet Incontinent Incontinent # Voids 2 1 # Bowel Movements 1 - Exam GENERAL EXAM: Alert, comfortable in no apparent distress. HEAD: Normocephalic. EYES: Normal reaction of pupils, equal size. NOSE: Clear with pink turbinates. THROAT: No erythema or exudates. NECK: No masses, no JVD. CHEST: No chest wall deformity. LUNGS: Equal air entry with no crackles, wheeze, rhonchi or dullness. Bases diminished CVS: S1 and S2 normal with no audible mumurs, irregular rhythm. ABDOMEN: No hepatosplenomegaly, normal bowel sounds, no guarding or rigidity. Mildly distended EXTREMITIES: +2 edema noted, pedal pulses palpable. SKIN: No rashes CENTRAL NERVOUS SYSTEM: No focal deficits, tone is weak in all 4 extremities. - Labs CBC & Chem 7: 12/20/16 07:30 12/20/16 07:30 Assessment and Plan Plan: Assessment Small right pleural effusion Hypotension Pancytopenia due to chemotherapy Hypokalemia Dehydration Altered mental status Ovarian cancer, currently being treated at, [facility] in [place]. Severe protein-calorie malnutrition Toxic metabolic encephalopathy, now resolved Abdominal ascites Lab Patient could be discharged from a pulmonary/critical care standpoint in the near future. Currently waiting on insurance authorization. Continue with current plan of care in mean time. Patient is supposed to go to [facility] for rehab. Medications have been reviewed and will be continued. We will continue nebulizer treatments as needed to help with her shortness of breath. She occasionally still gets short of breath due to ascites. Electrolytes replaced per protocol. Appreciate input from oncology. Infectious disease also on consult. Dietitian on consult. GI and DVT prophylactics. We will continue to monitor her pleural effusions closely. We will continue to monitor labs/ results and adjust treatment as necessary. I performed an examination of the patient and discussed their management with the nurse practitioner. I have reviewed the nurse practitioner's note and agree with the documented findings and plan of care.
[2016-12-21] MEDS: SODIUM CHLORIDE 0.9% 1,000 ML with POTASSIUM CHLORIDE 30 MEQ IV SCH ×2 (22:57)
[2016-12-21] MEDS: SODIUM CHLORIDE 0.9% 1,000 ML IV SCH (23:43)
[2016-12-22] MEDS: HYDROmorphone 2 MG TAB PO PRN ×2 (07:52→16:29)
[2016-12-22] MEDS: APIXABAN 5 MG TAB PO SCH ×2 (07:53→21:04)
[2016-12-22] MEDS: FAMOTIDINE 20 MG TAB PO SCH ×2 (07:57→21:04)
[2016-12-22] MEDS: FUROSEMIDE 20 MG TAB PO SCH ×2 (07:57→16:24)
[2016-12-22] MEDS: HYDROCORTISONE 20 MG TAB PO SCH ×2 (07:58→21:04)
[2016-12-22] MEDS: MAGNESIUM OXIDE 400 MG TAB PO SCH ×3 (07:58→21:04)
[2016-12-22] MEDS: MEGESTROL 400 MG/10 ML CUP PO SCH (07:59)
[2016-12-22] MEDS: POTASSIUM CHLORIDE ER 20 MEQ TAB.ER PO SCH ×4 (07:59→21:04)
[2016-12-22] MEDS: CHOLESTYRAMINE (WITH SUGAR) 4 GM PACKET PO SCH ×2 (10:49→17:08)
--- NOTE | 2016-12-22 12:28 | P.PN ---
Progress Note - Text Seen and evaluated there has been no new events. Spouse at bedside. Continues to wait for insurance clearance for the patient to be transferred to subacute rehab. The insurance issues being addressed by case management director and the elementary school social worker who are pursuing the discharge plan. In the interim we'll continue with the current plan of care. Patient is to continue Cortef 20 mg twice a day for 5 days to be completed on the 25 of December then taper to 20 mg daily for 5 days and stop. Continue PT OT while we wait insurance issues to be covered The above dictated assessment and findings were discussed with dr schwab . Impression and the plan of care have been dictated as directed. Christine Graves nurse practitioner acting as a scribe for dr schwab
--- NOTE | 2016-12-22 13:04 | P.PN ---
Subjective This is a 61-year-old female being evaluated and examined today on the fifth floor.. The patient came in to the emergency room for mental status changes. Patient was accompanied by her and son who stated that she could not get up this morning and was not being herself. Patient has been much less active, her intake has decreased and she has not been able to communicate with her family. The patient does have a history of ovarian cancel cancer and some possible abdominal metastasis per the family. She currently is being seen by, institute and each right those records are not readily available at this time. Patient states her last chemotherapy treatment was about 2 weeks ago. She denies having any fevers or any obvious signs of infection, however she has not able to provide much history. Her blood work showed pancytopenia as well as electrolyte abnormalities including hypokalemia. She was also dehydrated. The patient was started on IV fluids and her electrolytes were replaced. The patient does have a Mediport in place. Oncology was put on consult as well. ultrasound of the abdomen showed ascites in all 4 quadrant, patient went for paracentesis, 3.8 L of serous fluid was removed. Upon examination the patient is resting up in bed on room air with family at bedside. Patient does get short of breath with exertion however it has significantly improved. She was still continued to require breathing treatments as needed. She denies any cough or congestion at this time. She continues to appears very weak and cachectic. She states her full feeling in the abdomen has maintained the same today. Swelling bilateral lower extremities remains the same today. Patient's appetite has remained stable today. Patient states she is feeling like she could be discharged in the near future to [facility]. Continues to wait on insurance authorization for transfer to nursing facility. The insurance issues are being addressed by the correctional case manager and social service agency director were actively pursuing the discharge plan. We will continue to see the patient and continue with the current plan of care until the patient is discharged. Objective - Vital Signs Vital signs: Vital Signs Temp 97.3 F L 12/22/16 07:00 Pulse 106 H 12/22/16 07:00 Resp 16 12/22/16 07:00 BP 117/78 12/22/16 07:00 Pulse Ox 97 12/22/16 07:00 Intake & Output 12/21/16 12/22/16 12/22/16 18:59 06:59 18:59 Intake Total 200 360 Balance 200 360 Weight 66.5 kg 66 kg Intake: IV 360 Sodium Chloride 0.9% 1, 360 000 ml @ 40 mls/hr IV . Q24H HNAH with Potassium Chloride 30 meq Rx#: [id number] Oral 200 Other: Voiding Method Toilet Toilet Incontinent # Voids 3 2 - Exam GENERAL EXAM: Alert, comfortable in no apparent distress. HEAD: Normocephalic. EYES: Normal reaction of pupils, equal size. NOSE: Clear with pink turbinates. THROAT: No erythema or exudates. NECK: No masses, no JVD. CHEST: No chest wall deformity. LUNGS: Equal air entry with no crackles, wheeze, rhonchi or dullness. Bases diminished CVS: S1 and S2 normal with no audible mumurs, irregular rhythm. ABDOMEN: No hepatosplenomegaly, normal bowel sounds, no guarding or rigidity. Mildly distended EXTREMITIES: +2 edema noted, pedal pulses palpable. SKIN: No rashes CENTRAL NERVOUS SYSTEM: No focal deficits, tone is weak in all 4 extremities. - Labs CBC & Chem 7: 12/20/16 07:30 12/20/16 07:30 Assessment and Plan Plan: Assessment Small right pleural effusion Hypotension Pancytopenia due to chemotherapy Hypokalemia Dehydration Altered mental status Ovarian cancer, currently being treated at, [facility] in [place]. Severe protein-calorie malnutrition Toxic metabolic encephalopathy, now resolved Abdominal ascites Lab Patient could be discharged from a pulmonary/critical care standpoint in the near future. Currently waiting on insurance authorization. maintenance manager and social service agency director have been actively pursuing discharging authorization. Continue with current plan of care in mean time. Patient is supposed to go to [facility] for rehab. Medications have been reviewed and will be continued. We will continue nebulizer treatments as needed to help with her shortness of breath. She occasionally still gets short of breath due to ascites. Electrolytes replaced per protocol. Appreciate input from oncology. Infectious disease also on consult. Dietitian on consult. GI and DVT prophylactics. We will continue to monitor her pleural effusions closely. We will continue to monitor labs/results and adjust treatment as necessary. I performed an examination of the patient and discussed their management with the nurse practitioner. I have reviewed the nurse practitioner's note and agree with the documented findings and plan of care.
[2016-12-22] MEDS: SODIUM CHLORIDE 0.9% 1,000 ML IV SCH (21:06)
[2016-12-22] MEDS: SODIUM CHLORIDE 0.9% 1,000 ML with POTASSIUM CHLORIDE 30 MEQ IV SCH ×2 (22:55)
[2016-12-23] MEDS: MEGESTROL 400 MG/10 ML CUP PO SCH (09:10)
[2016-12-23] MEDS: MAGNESIUM OXIDE 400 MG TAB PO SCH ×2 (09:10→15:21)
[2016-12-23] MEDS: POTASSIUM CHLORIDE ER 20 MEQ TAB.ER PO SCH ×3 (09:10→18:20)
[2016-12-23] MEDS: FUROSEMIDE 20 MG TAB PO SCH ×2 (09:10→15:20)
[2016-12-23] MEDS: FAMOTIDINE 20 MG TAB PO SCH ×2 (09:10)
[2016-12-23] MEDS: APIXABAN 5 MG TAB PO SCH (09:10)
[2016-12-23] MEDS: HYDROCORTISONE 20 MG TAB PO SCH ×2 (09:10)
[2016-12-23] MEDS: CHOLESTYRAMINE (WITH SUGAR) 4 GM PACKET PO SCH ×2 (09:11→18:20)
[2016-12-23] MEDS ORDERED: HYDROCORTISONE 20 MG TAB ONE (21:00)
[2016-12-23] MEDS ORDERED: MAGNESIUM OXIDE 400 MG TAB ONE (21:00)
[2016-12-23] MEDS ORDERED: POTASSIUM CHLORIDE ER 20 MEQ TAB.ER PO ONE (21:00)
[2016-12-23] MEDS ORDERED: APIXABAN 5 MG TAB ONE (21:00)
[2016-12-23] MEDS ORDERED: FAMOTIDINE 20 MG TAB ONE (21:00)
--- NOTE | 2016-12-24 08:38 | PN ---
DATE OF SERVICE: 12/23/2016 Patient seen, evaluated and examined. Her shortness of breath is stable. The patient is currently on room air. The patient has significant lower extremity swelling related to protein calorie malnourishment and peripheral edema. Has been getting Brent wrap. Her hemodynamic status is stable. Last set of vitals include blood pressure is 110/72, respiratory rate 16, pulse 110, temperature 98, saturation 96% on room air. Otherwise, not much change. NECK: Supple without adenopathy. LUNGS: Bilateral good air entry, decreased air entry at the bases. HEART: Regular rate and rhythm. ABDOMEN: Soft. NEUROLOGICAL EXAMINATION: Otherwise awake and alert. LOWER EXTREMITY: +2 to 3 edema is present. LABS: Reviewed. Medications reviewed as well. IMPRESSION: 1. Right-sided pleural effusion. 2. Chronic hypertension. 3. Pancytopenia. 4. Electrolyte imbalance with hypokalemia. 5. Altered mental status. 6. Ovarian cancer. 7. Abdominal ascites. PLAN: As above. Continue supportive care. Continue increase activity as tolerated. We will recommend follow-up in outpatient setting. Increase activity as tolerated. Will follow closely.
[2016-12-24] MEDS: APIXABAN 5 MG TAB PO SCH ×3 (09:04→21:35)
[2016-12-24] MEDS: FAMOTIDINE 20 MG TAB PO SCH ×3 (09:04→21:35)
[2016-12-24] MEDS: MAGNESIUM OXIDE 400 MG TAB PO SCH ×4 (09:05→21:36)
[2016-12-24] MEDS: HYDROCORTISONE 20 MG TAB PO SCH ×3 (09:05→21:35)
[2016-12-24] MEDS: SODIUM CHLORIDE 0.9% 1,000 ML IV SCH (09:05)
[2016-12-24] MEDS: SODIUM CHLORIDE 0.9% 1,000 ML with POTASSIUM CHLORIDE 30 MEQ IV SCH ×6 (09:05→21:40)
[2016-12-24] MEDS: POTASSIUM CHLORIDE ER 20 MEQ TAB.ER PO SCH ×5 (09:05→21:36)
[2016-12-24] MEDS: FUROSEMIDE 20 MG TAB PO SCH ×2 (09:45→16:17)
[2016-12-24] MEDS: MEGESTROL 400 MG/10 ML CUP PO SCH (09:45)
[2016-12-24] MEDS: CHOLESTYRAMINE (WITH SUGAR) 4 GM PACKET PO SCH ×3 (09:46→15:49)
[2016-12-24] MEDS: HYDROmorphone 2 MG TAB PO PRN ×2 (16:17→21:40)
[2016-12-25] MEDS: SODIUM CHLORIDE 0.9% 1,000 ML IV SCH (03:12)
[2016-12-25 06:31] LABS: Anisocytosis Moderate; CH 33.7; CHCM 31.2; HCT 28.5 % (34.0-46.0); HDW 3.23; HGB 8.8 gm/dL (11.4-16.0); Hypochromasia Moderate; MCH 33.8 pg (25.0-35.0); Macrocytosis Marked; RBC 2.61 m/uL (3.80-5.40); RDW 21.6 % (11.5-15.5); WBC 7.6 k/uL (3.8-10.6); WBC (Perox) 7.56
[2016-12-25 06:37] LABS: ALT 23 U/L (9-52); AST 18 U/L (14-36); Alkaline Phosphatase 59 U/L (38-126); Anion Gap 3 mmol/L; Blood Urea Nitrogen 11 mg/dL (7-17); Calcium 7.3 mg/dL (8.4-10.2); Carbon Dioxide 27 mmol/L (22-30); Chloride 107 mmol/L (98-107); Glucose 90 mg/dL (74-99); Non-African American GFR(MDRD) >60 (>60 ml/min/1.73 sqM); Potassium 3.4 mmol/L (3.5-5.1); Sodium 137 mmol/L (137-145); Total Bilirubin 0.4 mg/dL (0.2-1.3); Total Protein 4.3 g/dL (6.3-8.2)
[2016-12-25 06:57] LABS: Add Differential Manual Differential
[2016-12-25 06:59] LABS: Nucleated Red Blood Cells 0 /100 WBC (0-0); Total Cells Counted 100
[2016-12-25 07:00] LABS: Manual Review Performed; Polychromasia Present
[2016-12-25 07:01] LABS: Tear Drop Cells Present
[2016-12-25] MEDS: HYDROCORTISONE 20 MG TAB PO SCH (07:39)
[2016-12-25] MEDS: POTASSIUM CHLORIDE ER 20 MEQ TAB.ER PO SCH ×4 (07:40→21:51)
[2016-12-25] MEDS: APIXABAN 5 MG TAB PO SCH ×2 (07:40→21:50)
[2016-12-25] MEDS: MAGNESIUM OXIDE 400 MG TAB PO SCH ×3 (07:40→21:51)
[2016-12-25] MEDS: FAMOTIDINE 20 MG TAB PO SCH ×2 (07:40→21:50)
[2016-12-25] MEDS: FUROSEMIDE 20 MG TAB PO SCH ×2 (07:41→17:43)
[2016-12-25] MEDS: CHOLESTYRAMINE (WITH SUGAR) 4 GM PACKET PO SCH ×2 (07:41→17:27)
[2016-12-25] MEDS: MEGESTROL 400 MG/10 ML CUP PO SCH (07:41)
[2016-12-25] MEDS: HYDROmorphone 2 MG TAB PO PRN ×4 (07:48→21:50)
--- NOTE | 2016-12-25 12:29 | PN ---
DATE OF SERVICE: 12/24/2016 SUBJECTIVE: A 61-year-old white female with pancytopenia, hypokalemia, mental status changes, ovarian cancer metastatic to the abdomen. Patient has increased ascites. She has had increased abdominal pain, decreased appetite today. Her oral intake has decreased. We are awaiting jail placement for the patient. Discussed physical therapy with her. She wants rehab center #1, go home 2 or 3 and she wants hospice house distant third. She wants aggressive physical therapy. [facility] jail [facility]. She has been denied a bed there for a whole week. Discharge plan has been trying to find someone to take her, but it failed. CARDIOVASCULAR: S1, S2. LUNGS: Clear. GI: Soft. Colostomy bag is intact. HEMATOLOGIC: Negative Homans. She is thin, cachectic. Vital signs are stable. ASSESSMENT: Mentioned above. PLAN: We will increase PT, OT, oral intake, wean hydrocortisone for adrenal insufficiency over the next week down from 20 mg b.i.d. down to maybe 10 mg b.i.d.
--- NOTE | 2016-12-25 13:18 | P.PN ---
Subjective This is a 61-year-old female being evaluated and examined today on the fifth floor.. The patient came in to the emergency room for mental status changes. Patient was accompanied by her and son who stated that she could not get up this morning and was not being herself. Patient has been much less active, her intake has decreased and she has not been able to communicate with her family. The patient does have a history of ovarian cancel cancer and some possible abdominal metastasis per the family. She currently is being seen by, institute and each right those records are not readily available at this time. Patient states her last chemotherapy treatment was about 2 weeks ago. She denies having any fevers or any obvious signs of infection, however she has not able to provide much history. Her blood work showed pancytopenia as well as electrolyte abnormalities including hypokalemia. She was also dehydrated. The patient was started on IV fluids and her electrolytes were replaced. The patient does have a Mediport in place. Oncology was put on consult as well. ultrasound of the abdomen showed ascites in all 4 quadrant, patient went for paracentesis, 3.8 L of serous fluid was removed. Upon examination the patient is resting up in bed on room air with family at bedside. Patient does get short of breath with exertion however it has significantly improved. She was still continued to require breathing treatments as needed. She denies any cough or congestion at this time. She continues to appears very weak and cachectic. Continues with ascites and bilateral lower extremity edema. Patient's appetite has remained marginal today. Continues to wait on insurance authorization for transfer to nursing facility. The patient has brought up possibly being discharged home and/or wanting hospice. Primary physician to further discuss skin make the final decision with the patient and family. The insurance issues are being addressed by the complex case manager and social welfare research worker were actively pursuing the discharge plan. We will continue to see the patient and continue with the current plan of care until the patient is discharged. Prognosis continues to remain guarded due to her multiple comorbidities. Objective - Vital Signs Vital signs: Vital Signs Temp 97.4 F L 12/25/16 07:00 Pulse 110 H 12/25/16 07:00 Resp 16 12/25/16 07:00 BP 112/72 12/25/16 07:00 Pulse Ox 97 12/25/16 07:00 Intake & Output 12/24/16 12/25/16 12/25/16 18:59 06:59 18:59 Intake Total 300 640 Output Total 1200 300 Balance -900 340 Weight 65.8 kg 66.3 kg 66.3 kg Intake: IV 300 400 Sodium Chloride 0.9% 1, 300 400 000 ml @ 40 mls/hr IV . Q24H HANH with Potassium Chloride 30 meq Rx#: [id number] Oral 240 Output: Urine 1000 300 Stool 200 Other: Voiding Method Toilet Toilet # Voids 2 1 - Exam GENERAL EXAM: Alert, comfortable in no apparent distress. HEAD: Normocephalic. EYES: Normal reaction of pupils, equal size. NOSE: Clear with pink turbinates. THROAT: No erythema or exudates. NECK: No masses, no JVD. CHEST: No chest wall deformity. LUNGS: Equal air entry with no crackles, wheeze, rhonchi or dullness. Bases diminished CVS: S1 and S2 normal with no audible mumurs, irregular rhythm. ABDOMEN: No hepatosplenomegaly, normal bowel sounds, no guarding or rigidity. Mildly distended EXTREMITIES: +2 edema noted, pedal pulses palpable. SKIN: No rashes CENTRAL NERVOUS SYSTEM: No focal deficits, tone is weak in all 4 extremities. - Labs CBC & Chem 7: 12/25/16 06:15 12/25/16 06:15 Labs: Abnormal Lab Results - Last 24 Hours (Table) 12/25/16 12/25/16 Range/Units 06:15 06:15 RBC 2.61 L (3.80-5.40) m/uL Hgb 8.8 L (11.4-16.0) gm/dL Hct 28.5 L (34.0-46.0) % MCV 109.0 H (80.0-100.0) fL RDW 21.6 H (11.5-15.5) % Plt Count 82 L (150-450) k/uL Lymphocytes # (Manual) 0.1 L (1.0-4.8) k/uL Potassium 3.4 L (3.5-5.1) mmol/L Creatinine 0.34 L (0.52-1.04) mg/dL Calcium 7.3 L (8.4-10.2) mg/dL Total Protein 4.3 L (6.3-8.2) g/dL Albumin 1.9 L (3.5-5.0) g/dL Assessment and Plan Plan: Assessment Small right pleural effusion Hypotension Pancytopenia due to chemotherapy Hypokalemia Dehydration Altered mental status Ovarian cancer, currently being treated at, [facility] in [place]. Severe protein-calorie malnutrition Toxic metabolic encephalopathy, now resolved Abdominal ascites Lab Patient could be discharged from a pulmonary/critical care standpoint in the near future. Currently waiting on insurance authorization. hedis manager and social welfare research worker have been actively pursuing discharging authorization. Continue with current plan of care in mean time. Patient's prognosis is highly guarded due to her multiple comorbidities. Patient has brought up, possibly just going home and/or to hospice. All options will be looked at and discussed with the patient. Medications have been reviewed and will be continued. We will continue nebulizer treatments as needed to help with her shortness of breath. She occasionally still gets short of breath due to ascites. Electrolytes replaced per protocol. Appreciate input from oncology. Infectious disease also on consult. Dietitian on consult. GI and DVT prophylactics. We will continue to monitor her pleural effusions closely. We will continue to monitor labs/results and adjust treatment as necessary. I performed an examination of the patient and discussed their management with the nurse practitioner. I have reviewed the nurse practitioner's note and agree with the documented findings and plan of care.
--- NOTE | 2016-12-25 14:50 | P.PN ---
Progress Note - Text Patient continues to wait for a bed for rehab. dental practice manager did meet with the patient and the spouse updated on the plan. Currently awaiting for insurance clearance for the patient to be transferred to subacute rehab. Patient currently is continuing on Cortef 20 twice a day which was started on the 10th will be tapered on the 16th down to 20 mg daily. This been no new changes. The above dictated assessment and findings were discussed with dr zaheer Woodard and the plan of care have been dictated as directed. Christine Graves nurse practitioner acting as a scribe for dr cantrell
--- NOTE | 2016-12-25 15:30 | PN ---
Mrs. Multani is a 61-year-old with ovarian cancer and chronic current ascites and small right-sided pleural effusion. From respiratory standpoint, she is doing well, awake and alert, breathing comfortably. Sats are 95% on room air. Blood pressure is 100/60, respiratory rate 16, pulse 110. HEENT EXAMINATION: Otherwise unremarkable. NECK: Supple. LUNGS: Good air entry bilaterally, decreased air entry at the bases. HEART: Regular rate and rhythm. S1 and S2 audible. ABDOMEN: Soft. No rebound or rigidity. EXTREMITIES: +1. NEUROLOGICAL EXAMINATION: Otherwise, awake and alert. His current medications are reviewed. Laboratory data reviewed as well. IMPRESSION: 1. Metastatic ovarian cancer. 2. Right-sided pleural effusion. 3. Protein calorie malnourishment. 4. Electrolyte imbalance. PLAN: As above. Continue supportive care. Increase activity as possible. Continue Brent wrap. Will follow closely for pleural effusion. However, the patient noted to have recurrent ascites. Consider large volume paracentesis. Will follow.
[2016-12-25] MEDS: SODIUM CHLORIDE 0.9% 1,000 ML with POTASSIUM CHLORIDE 30 MEQ IV SCH ×2 (21:54)
[2016-12-26] MEDS: HYDROmorphone 2 MG TAB PO PRN ×3 (06:18→21:06)
[2016-12-26 07:15] LABS: Anion Gap 5 mmol/L; Blood Urea Nitrogen 14 mg/dL (7-17); Calcium 7.5 mg/dL (8.4-10.2); Carbon Dioxide 25 mmol/L (22-30); Chloride 107 mmol/L (98-107); Glucose 88 mg/dL (74-99); Non-African American GFR(MDRD) >60 (>60 ml/min/1.73 sqM); Potassium 4.1 mmol/L (3.5-5.1); Sodium 137 mmol/L (137-145)
[2016-12-26] MEDS: MEGESTROL 400 MG/10 ML CUP PO SCH (09:30)
[2016-12-26] MEDS: APIXABAN 5 MG TAB PO SCH ×2 (09:32→21:08)
[2016-12-26] MEDS: FUROSEMIDE 20 MG TAB PO SCH ×2 (09:32→16:14)
[2016-12-26] MEDS: FAMOTIDINE 20 MG TAB PO SCH ×2 (09:33→21:08)
[2016-12-26] MEDS: POTASSIUM CHLORIDE ER 20 MEQ TAB.ER PO SCH ×4 (09:33→21:08)
[2016-12-26] MEDS: MAGNESIUM OXIDE 400 MG TAB PO SCH ×3 (09:33→21:08)
[2016-12-26] MEDS: HYDROCORTISONE 20 MG TAB PO SCH (09:33)
[2016-12-26] MEDS: CHOLESTYRAMINE (WITH SUGAR) 4 GM PACKET PO SCH ×2 (09:35→17:19)
--- NOTE | 2016-12-26 11:36 | P.PN ---
Subjective This is a 61-year-old female being evaluated and examined today on the fifth floor.. The patient came in to the emergency room for mental status changes. Patient was accompanied by her and son who stated that she could not get up this morning and was not being herself. Patient has been much less active, her intake has decreased and she has not been able to communicate with her family. The patient does have a history of ovarian cancel cancer and some possible abdominal metastasis per the family. She currently is being seen by, institute and each right those records are not readily available at this time. Patient states her last chemotherapy treatment was about 2 weeks ago. She denies having any fevers or any obvious signs of infection, however she has not able to provide much history. Her blood work showed pancytopenia as well as electrolyte abnormalities including hypokalemia. She was also dehydrated. The patient was started on IV fluids and her electrolytes were replaced. The patient does have a Mediport in place. Oncology was put on consult as well. ultrasound of the abdomen showed ascites in all 4 quadrant, patient went for paracentesis, 3.8 L of serous fluid was removed. Upon examination the patient is resting up in bed on room air with family at bedside. Patient does get short of breath with exertion however it has significantly improved. She was still continued to require breathing treatments as needed. She denies any cough or congestion at this time. She continues to appears very weak and cachectic. Continues with ascites and bilateral lower extremity edema. Patient's appetite has remained marginal today. Continues to wait on insurance authorization for transfer to nursing facility. The patient has brought up possibly being discharged home and/or wanting hospice. Primary physician to further discuss skin make the final decision with the patient and family. Patient is currently undecided with her decision on hospice therefore we will continue with rehab facility. The insurance issues are being addressed by the manager rn case and social work supervisor were actively pursuing the discharge plan. We will continue to see the patient and continue with the current plan of care until the patient is discharged. Prognosis continues to remain guarded due to her multiple comorbidities. Objective - Vital Signs Vital signs: Vital Signs Temp 97.3 F L 12/26/16 07:00 Pulse 120 H 12/26/16 07:00 Resp 16 12/26/16 07:00 BP 100/63 12/26/16 07:00 Pulse Ox 98 12/26/16 07:00 Intake & Output 12/25/16 12/26/16 12/26/16 18:59 06:59 18:59 Intake Total 240 730 Output Total 900 Balance -660 730 Weight 66.3 kg Intake: IV 240 680 Sodium Chloride 0.9% 1, 240 680 000 ml @ 40 mls/hr IV . Q24H HANH with Potassium Chloride 30 meq Rx#: [id number] Oral 50 Output: Urine 300 Stool 600 Other: Voiding Method Toilet Toilet # Voids 1 3 - Exam GENERAL EXAM: Alert, comfortable in no apparent distress. HEAD: Normocephalic. EYES: Normal reaction of pupils, equal size. NOSE: Clear with pink turbinates. THROAT: No erythema or exudates. NECK: No masses, no JVD. CHEST: No chest wall deformity. LUNGS: Equal air entry with no crackles, wheeze, rhonchi or dullness. Bases diminished CVS: S1 and S2 normal with no audible mumurs, irregular rhythm. ABDOMEN: No hepatosplenomegaly, normal bowel sounds, no guarding or rigidity. Mildly distended EXTREMITIES: +2 edema noted, pedal pulses palpable. SKIN: No rashes CENTRAL NERVOUS SYSTEM: No focal deficits, tone is weak in all 4 extremities. - Labs CBC & Chem 7: 12/25/16 06:15 12/26/16 06:15 Labs: Abnormal Lab Results - Last 24 Hours (Table) 12/26/16 Range/Units 06:15 Creatinine 0.41 L (0.52-1.04) mg/dL Calcium 7.5 L (8.4-10.2) mg/dL Assessment and Plan Plan: Assessment Small right pleural effusion Hypotension Pancytopenia due to chemotherapy Hypokalemia Dehydration Altered mental status Ovarian cancer, currently being treated at, [facility] in [place]. Severe protein-calorie malnutrition Toxic metabolic encephalopathy, now resolved Abdominal ascites Lab Patient could be discharged from a pulmonary/critical care standpoint. Currently waiting on insurance authorization. manager strategic development and social work supervisor have been actively pursuing discharging authorization. Continue with current plan of care in mean time. Patient's prognosis is highly guarded due to her multiple comorbidities. Patient has brought up, possibly just going home and/ or to hospice. All options will be looked at and discussed with the patient. Medications have been reviewed and will be continued. We will continue nebulizer treatments as needed to help with her shortness of breath. She occasionally still gets short of breath due to ascites. Electrolytes replaced per protocol. Appreciate input from oncology. Infectious disease also on consult. Dietitian on consult. GI and DVT prophylactics. We will sign off on this patient and will see the patient on an as-needed basis. I performed an examination of the patient and discussed their management with the nurse practitioner. I have reviewed the nurse practitioner's note and agree with the documented findings and plan of care.
--- NOTE | 2016-12-26 12:07 | P.PN ---
Progress Note - Text Patient seen and evaluated. The discharge plan and progress. Did note social media director did see patient and spouse. The spouse did provide the social media director with information regarding the insurance. Reviewing the social media director's note information the spouse provided regarding the company stating [employer] is not to contact it is [employer]. Did note the social media director contact someone at [employer] who is the contract for a presurgical and the patient does have ECF rehab coverage and [facility] Murray is in the network. This information was provided to the [facility] liason and telephone numbers were provided we'll continue to follow updated the spouse and the patient on the plan of care this been no physical change. Patient continues to need the assist of 1 to ambulate from the bed to the bathroom. The above dictated assessment and findings were discussed with dr schwab . Impression and the plan of care have been dictated as directed. Christine Graves nurse practitioner acting as a scribe for dr schwab
[2016-12-26] MEDS: SODIUM CHLORIDE 0.9% 1,000 ML IV SCH ×2 (21:08→21:09)
[2016-12-26 22:42] VITALS: RESP 16
[2016-12-27] MEDS: MEGESTROL 400 MG/10 ML CUP PO SCH (08:49)
[2016-12-27] MEDS: MAGNESIUM OXIDE 400 MG TAB PO SCH ×3 (08:49→20:39)
[2016-12-27] MEDS: APIXABAN 5 MG TAB PO SCH ×2 (08:49→20:39)
[2016-12-27] MEDS: FAMOTIDINE 20 MG TAB PO SCH ×2 (08:50→20:39)
[2016-12-27] MEDS: FUROSEMIDE 20 MG TAB PO SCH ×2 (08:50→17:06)
[2016-12-27] MEDS: HYDROCORTISONE 20 MG TAB PO SCH (08:50)
[2016-12-27] MEDS: HYDROmorphone 2 MG TAB PO PRN ×3 (08:50→20:35)
[2016-12-27] MEDS: POTASSIUM CHLORIDE ER 20 MEQ TAB.ER PO SCH ×4 (08:50→22:34)
[2016-12-27] MEDS: CHOLESTYRAMINE (WITH SUGAR) 4 GM PACKET PO SCH (08:51)
--- NOTE | 2016-12-27 16:08 | P.PN ---
Progress Note - Text 61-year-old female being seen and examined spouse at the bedside aware the plan of care patient continues to wait for her insurance to authorize the patient to go to subacute rehab. Patient with the assist of one is able to ambulate from the bed to the bathroom. Patient is hoping that with rehab her goal will be 2- 3 weeks rehab to get stronger to continue with her cancer treatment with her primary oncologist dr hope. We'll continue with the current treatment plan waiting clearance this was discussed with the patient and the patient's spouse at the bedside. Patient states her pain is well controlled and the appetite has improved. Is a small amount of formed stool from the ileostomy noted in the bag. Patient states she is urinating without difficulty. There is less edema to the bilateral lower extremities Brent wraps remain on. Continue with waiting decision from the insurance company. assembly manager did discuss with the patient and spouse if no approval they are agreeing to go home with home care and physical therapy in the house The above dictated assessment and findings were discussed with dr schwab Impression and the plan of care have been dictated as directed. Christine Graves nurse practitioner acting as a scribe for dr schwab
[2016-12-27] MEDS: SODIUM CHLORIDE 0.9% 1,000 ML with POTASSIUM CHLORIDE 30 MEQ IV SCH ×2 (20:39)
[2016-12-27] MEDS: SODIUM CHLORIDE 0.9% 1,000 ML IV SCH (20:40)
[2016-12-28] MEDS: HYDROmorphone 2 MG TAB PO PRN ×3 (00:06→17:26)
[2016-12-28 08:57] VITALS: BP 98/61; PULSE 118; TEMP 96.9
[2016-12-28] MEDS: FAMOTIDINE 20 MG TAB PO SCH (09:14)
[2016-12-28] MEDS: APIXABAN 5 MG TAB PO SCH (09:14)
[2016-12-28] MEDS: MEGESTROL 400 MG/10 ML CUP PO SCH (09:14)
[2016-12-28] MEDS: HYDROCORTISONE 20 MG TAB PO SCH (09:14)
[2016-12-28] MEDS: FUROSEMIDE 20 MG TAB PO SCH ×2 (09:14→17:18)
[2016-12-28] MEDS: MAGNESIUM OXIDE 400 MG TAB PO SCH ×2 (09:14→17:28)
[2016-12-28] MEDS: POTASSIUM CHLORIDE ER 20 MEQ TAB.ER PO SCH ×2 (09:14→15:16)
[2016-12-28 10:53] VITALS: BMI 24.5
[2016-12-28] MEDS ORDERED: POTASSIUM CHLORIDE ER 20 MEQ TAB.ER PO SCH (21:00)
== END 2016-12-28 18:10 | disposition hospice, home (50) | DRG 808 ==
LOC: EC 13:39 → 6ICU 19:00 → 5ONC 12-08 18:24
PROVIDERS: ADMIT Family Medicine; ATTEND Family Medicine
PROC: 30243R1 Transfusion of Nonautologous Platelets into Central Vein, Percutaneous Approach (ICD-10-PCS; principal; 2016-12-06)
PROC: 30243N1 Transfusion of Nonautologous Red Blood Cells into Central Vein, Percutaneous Approach (ICD-10-PCS; 2016-12-06)
PROC: 0W9G3ZZ Drainage of Peritoneal Cavity, Percutaneous Approach (ICD-10-PCS; 2016-12-12)
PROC: 3E0436Z Introduction of Nutritional Substance into Central Vein, Percutaneous Approach (ICD-10-PCS; 2016-12-14)
PROC: 0T9B70Z Drainage of Bladder with Drainage Device, Via Natural or Artificial Opening (ICD-10-PCS; 2016-12-19)
DX: D61.810 Antineoplastic chemotherapy induced pancytopenia (principal); E43 Unspecified severe protein-calorie malnutrition; R57.1 Hypovolemic shock; G92 Toxic encephalopathy; I47.2 Ventricular tachycardia; A41.9 Sepsis, unspecified organism; R18.0 Malignant ascites; J90 Pleural effusion, not elsewhere classified; R64 Cachexia; K52.1 Toxic gastroenteritis and colitis; C78.6 Secondary malignant neoplasm of retroperitoneum and peritoneum; C56.9 Malignant neoplasm of unspecified ovary; R47.01 Aphasia; Z68.1 Body mass index [BMI] 19.9 or less, adult; E87.1 Hypo-osmolality and hyponatremia; E27.40 Unspecified adrenocortical insufficiency; N13.30 Unspecified hydronephrosis; J44.1 Chronic obstructive pulmonary disease with (acute) exacerbation; J81.1 Chronic pulmonary edema; I48.0 Paroxysmal atrial fibrillation; Z66 Do not resuscitate; Z51.5 Encounter for palliative care; E86.0 Dehydration; T45.1X5A Adverse effect of antineoplastic and immunosuppressive drugs, initial encounter; E87.6 Hypokalemia; T36.95XA Adverse effect of unspecified systemic antibiotic, initial encounter; E83.42 Hypomagnesemia; I48.2 Chronic atrial fibrillation; I10 Essential (primary) hypertension; E87.5 Hyperkalemia; E88.09 Other disorders of plasma-protein metabolism, not elsewhere classified; M62.50 Muscle wasting and atrophy, not elsewhere classified, unspecified site; R53.1 Weakness; E87.70 Fluid overload, unspecified; I89.0 Lymphedema, not elsewhere classified; R32 Unspecified urinary incontinence; E83.39 Other disorders of phosphorus metabolism; Z87.891 Personal history of nicotine dependence; Z93.3 Colostomy status; Z79.01 Long term (current) use of anticoagulants; Z86.718 Personal history of other venous thrombosis and embolism; Z86.711 Personal history of pulmonary embolism; Z79.891 Long term (current) use of opiate analgesic; Z79.899 Other long term (current) drug therapy; Z71.3 Dietary counseling and surveillance; Z92.3 Personal history of irradiation; Z92.21 Personal history of antineoplastic chemotherapy; Z87.19 Personal history of other diseases of the digestive system; Z85.42 Personal history of malignant neoplasm of other parts of uterus; Z85.3 Personal history of malignant neoplasm of breast; Z85.038 Personal history of other malignant neoplasm of large intestine; Z90.11 Acquired absence of right breast and nipple; Z90.710 Acquired absence of both cervix and uterus; Z90.49 Acquired absence of other specified parts of digestive tract
CPT/HCPCS: 36415; 49083; 70450; 71010; 71020; 74177; 76604; 76705; 80048; 80053; 80202; 80306; 81001; 82140; 82330; 82533; 83605; 83735; 83880; 84100; 84132; 84478; 84484; 85025; 85027; 85610; 85730; 86850; 86900; 86901; 86920; 87040; 87070; 87086; 87205; 87324; 88108; 88305; 88341; 88342; 93005; 93306; 94760